=== PATIENT | male | born 1940 | race Caucasian/White ===

== ENCOUNTER 2017-07-05 18:28 | Inpatient (IN) | payer MEDICARE, MEDICAID ==
[~2017-07-05] VITALS: Ht 180.3 cm; Wt 149.0 kg
[~2017-07-05 18:28] MED LIST: ACET325T9 PO; ASPI-630 PO; CALC200T3 PO; CHOL10003 PO; CYAN500T PO; GABA-586 PO; INSU100I13 SQ; LISI10TA2 PO; MAG355OR12 PO; MAGN2400 PO; MELO15TA23 PO; MEMA10TA PO; METF500T4 PO; QUET25TA5 PO; QUET50TA PO; RIVA1PAT23 TD; THIA100T22 PO
[2017-07-05 19:29] LABS: BILIRUBIN,URINE NEG (NEG); CLARITY,URINE CLEAR; COLOR,URINE YELLOW; GLUCOSE,URINE NEG (NEG)
[2017-07-05 19:30] LABS: BACTERIA,URINE 0 /HPF (0-FEW); HYALINE CASTS, URINE MOD /HPF; NITRITE,URINE NEG (NEG); RBC,URINE OCC /HPF (0-2); SQUAMOUS EPITHELIAL CELL,UR FEW /LPF; UROBILINOGEN,URINE 0.2 mg/dL (0.2 mg/dL)
[2017-07-05 19:31] LABS: BASO # 0.1 x10^3/uL (0.0-0.2); BASO % 1 % (0-3); EOS # 0.3 x10^3/uL (0.0-0.7); EOS % 3 % (0-3); HEMATOCRIT 37.4 % (39.0-53.0); HEMOGLOBIN 12.5 g/dL (13.0-17.5); LYMPH # 3.9 x10^3/uL (1.0-4.8); LYMPH % 39 % (24-48); MEAN CORPUSCULAR HEMOGLOBIN 30 pg (25-35); MEAN CORPUSCULAR HGB CONC 34 g/dL (31-37); MEAN CORPUSCULAR VOLUME 90 fL (79-100); MONO # 0.9 x10^3/uL (0.0-1.1); MONO % 9 % (0-9); NEUT % 49 % (31-73); PLATELET COUNT 170 x10^3/uL (140-400); RED BLOOD COUNT 4.14 x10^6/uL (4.30-5.70); RED CELL DISTRIBUTION WIDTH 15.3 % (11.5-14.5)
[2017-07-05 19:42] LABS: ALBUMIN 3.1 g/dL (3.4-5.0); ALBUMIN/GLOBULIN RATIO 0.8 (1.0-1.7); CALCIUM 9.4 mg/dL (8.5-10.1); CREATININE 1.2 mg/dL (0.7-1.3); GFR 58.7; MAGNESIUM 1.7 mg/dL (1.8-2.4); POTASSIUM 4.4 mmol/L (3.5-5.1); TOTAL BILIRUBIN 0.1 mg/dL (0.2-1.0); TOTAL PROTEIN 7.2 g/dL (6.4-8.2)
--- NOTE | 2017-07-05 19:53 | EKG ---
[address] [address] Test Date: 2017-07-05 Test Time: 19:04:04 Pat Name: ZACH ROMO Department: Room: Gender: M Inside [employer] Agent: ACE : [id number] Requested By: RAY VALENTE Order Number: [id number] Reading MD: Benjamin Parish Measurements Intervals [place] Rate: 82 P: 51 [place]: 190 QRS: 49 QRSD: 122 T: 79 QT: 380 QTc: 447 Interpretive Statements SINUS RHYTHM INCOMPLETE RIGHT BUNDLE BRANCH BLOCK QRS(T) CONTOUR ABNORMALITY CONSISTENT WITH INFERIOR INFARCT AGE UNDETERMINED T ABNORMALITY IN ANTEROSEPTAL LEADS ABNORMAL ECG RI6.01 No previous ECG available for comparison Electronically Signed On 07-23-2017 15:47:24 CDT by Benjamin Parish
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
[2017-07-05] MEDS ORDERED: METHYL SALICYLATE/MENTHOL TOPICAL OINTMENT 29GM TUBE. TP PRN (22:45)
[2017-07-05] MEDS ORDERED: MAG HYDROX/AL HYDROX/SIMETH 30 ML ORAL.SUSP PO PRN (22:45)
[2017-07-05 23:47] LABS: VAL ACID 16 mcg/mL (50-100)
[2017-07-05] MEDS ORDERED: METH29OI TP (23:50)
[2017-07-05] MEDS ORDERED: INSU100I17 SQ (23:50)
[2017-07-05] MEDS ORDERED: MINE120C TP (23:50)
[2017-07-05] MEDS ORDERED: ESCITALOPRAM OXA5 MG PO (23:50)
[2017-07-05] MEDS ORDERED: CLOP75TA PO (23:50)
[2017-07-05] MEDS ORDERED: FINA5TAB4 PO (23:50)
[2017-07-05] MEDS ORDERED: UMEC1DIS IH (23:50)
[2017-07-05] MEDS ORDERED: ACET500T68 PO (23:50)
[2017-07-05] MEDS ORDERED: TAMS0.4C2 PO (23:50)
[2017-07-05] MEDS ORDERED: IPRA3AMP NEB ×2 (23:50)
[2017-07-05] MEDS ORDERED: LORA10TA3 PO (23:50)
[2017-07-05] MEDS ORDERED: ATOR20TA58 PO (23:50)
[2017-07-05] MEDS ORDERED: GUAI600T47 PO (23:50)
[2017-07-05] MEDS ORDERED: FURO20TA3 PO (23:50)
[2017-07-05] MEDS ORDERED: METF10002 PO (23:50)
[2017-07-05] MEDS ORDERED: DIVA125C PO ×2 (23:50)
[2017-07-05] MEDS ORDERED: MEMA10TA PO (23:50)
[2017-07-05] MEDS ORDERED: HYDR-2758 PO (23:50)
[2017-07-05] MEDS ORDERED: RIVA1PAT23 TD (23:50)
[2017-07-05] MEDS ORDERED: LISI-338 PO (23:50)
[2017-07-05] MEDS ORDERED: CARV3.122 PO (23:50)
[2017-07-05] MEDS ORDERED: POTA10TA10 PO (23:50)
[2017-07-06] MEDS ORDERED: MINERAL OIL/PETROLATUM TOPICAL CREAM 113GM JAR. TP PRN (02:00)
[2017-07-06] MEDS: IPRATRPIUM/ALBUTEROL 0.5/2.5MG 3 ML NEBU. NEB SCH ×5 (06:05→21:41)
[2017-07-06 06:13] VITALS: BP 142/64
[2017-07-06] MEDS ORDERED: NON FORMULARY ITEM (Umeclidinium Brm/Vilanterol Tr (Anoro Ellipta 62.5-25 Mcg Inh) 1 PUFF) IH SCH (09:00)
[2017-07-06] MEDS ORDERED: PNEUMOC CONJ VACC 23-VALENT 0.5 ML VIAL. VAX IM ONE (09:00)
[2017-07-06] MEDS: INSULIN ASPART 300 UNITS/3 ML INSULN.PEN SQ SCH ×3 (10:23→17:21)
[2017-07-06] MEDS: RIVASTIGMINE 9.5MG PATCH. TD SCH (10:24)
[2017-07-06] MEDS: NICOTINE 21MG PATCH. TD SCH (10:24)
[2017-07-06] MEDS: METHYL SALICYLATE/MENTHOL TOPICAL OINTMENT 29GM TUBE. TP SCH ×3 (10:25→21:21)
[2017-07-06] MEDS: metFORMIN 500 MG TABLET PO SCH ×2 (10:25→16:11)
[2017-07-06] MEDS: ASPIRIN 81 MG TAB.CHEW PO SCH (10:25)
[2017-07-06] MEDS: NYSTATIN TOPICAL POWDER 15GM BOTTLE. TP SCH ×2 (10:25→21:21)
[2017-07-06] MEDS: CITALOPRAM 10 MG TABLET. PO SCH (10:25)
[2017-07-06] MEDS: LISINOPRIL 5 MG TABLET. PO SCH (10:25)
[2017-07-06] MEDS: FINASTERIDE 5 MG TABLET PO SCH (10:25)
[2017-07-06] MEDS: GABAPENTIN 300 MG CAPSULE. PO SCH ×4 (10:26→21:21)
[2017-07-06] MEDS: CARVEDILOL 3.125 MG TABLET PO SCH ×2 (10:26→16:08)
[2017-07-06] MEDS: CLOPIDOGREL BISULFATE 75 MG TABLET PO SCH (10:26)
[2017-07-06] MEDS: ACETAMINOPHEN 500 MG TABLET PO SCH ×2 (10:26→21:21)
[2017-07-06] MEDS: FUROSEMIDE 20 MG TABLET PO SCH (10:26)
[2017-07-06] MEDS: MEMANTINE 10 MG TABLET. PO SCH ×2 (10:26→21:21)
[2017-07-06] MEDS: CETIRIZINE HCL 10 MG TABLET PO SCH (10:27)
[2017-07-06] MEDS: DIVALPROEX 125 MG CAP.SPRINK PO SCH ×2 (10:27→16:06)
[2017-07-06] MEDS: POTASSIUM CHLORIDE 10 MEQ TABLET.ER. PO SCH (10:27)
[2017-07-06] MEDS: ALBUTEROL SULFATE 2.5 MG/3 ML NEBU. NEB PRN (14:38)
[2017-07-06 15:09] LABS: THYROID STIM HORMONE (TSH) 2.164 uIU/mL (0.358-3.740)
[2017-07-06 16:26] VITALS: BP 166/79
--- NOTE | 2017-07-06 18:53 | PDOC ---
Exam Note: Rober Note: Please also refer to the separate dictated note~for this date of service dictated separately.~Patient seen individually. Discussed the patient with Nursing staff reviewed the chart.~Reviewed interim history and current functioning. Reviewed vital signs,~Labs/ Radiology~and current medications noted below. Continue current treatment with the changes noted in the dictated addendum note Assessment: Vital Signs: Vital Signs Date Time Temp Pulse Resp B/P (MAP) Pulse Ox O2 Delivery O2 Flow Rate FiO2 07/06/17 18:01 95 Room Air 07/06/17 16:26 97.3 86 20 166/79 (108) Labs: Laboratory Tests Test 07/05/17 19:00 07/05/17 19:15 07/06/17 08:03 07/06/17 11:40 Urine Collection Type Unknown Urine Color Yellow Urine Clarity Clear Urine pH 5.5 Urine Specific [place] 1.015 Urine Protein Neg (NEG-TRACE) Urine Glucose (UA) Neg mg/dL (NEG) Urine Ketones (Stick) Neg mg/dL (NEG) Urine Blood Neg (NEG) Urine Nitrite Neg (NEG) Urine Bilirubin Neg (NEG) Urine Urobilinogen Dipstick 0.2 mg/dL (0.2 mg/dL) Urine Leukocyte Esterase Neg (NEG) Urine RBC Occ /HPF (0-2) Urine WBC 1-4 /HPF (0-4) Urine Squamous Epithelial Cells Few /LPF Urine Bacteria 0 /HPF (0-FEW) Urine Hyaline Casts Mod /HPF Urine Mucus Mod /LPF White Blood Count 10.0 x10^3/uL (4.0-11.0) Red Blood Count 4.14 x10^6/uL (4.30-5.70) L Hemoglobin 12.5 g/dL (13.0-17.5) L Hematocrit 37.4 % (39.0-53.0) L Mean Corpuscular Volume 90 fL (79-100) Mean Corpuscular Hemoglobin 30 pg (25-35) Mean Corpuscular Hemoglobin Concent 34 g/dL (31-37) Red Cell Distribution Width 15.3 % (11.5-14.5) H Platelet Count 170 x10^3/uL (140-400) Neutrophils (%) (Auto) 49 % (31-73) Lymphocytes (%) (Auto) 39 % (24-48) Monocytes (%) (Auto) 9 % (0-9) Eosinophils (%) (Auto) 3 % (0-3) Basophils (%) (Auto) 1 % (0-3) Neutrophils # (Auto) 5.0 x10^3uL (1.8-7.7) Lymphocytes # (Auto) 3.9 x10^3/uL (1.0-4.8) Monocytes # (Auto) 0.9 x10^3/uL (0.0-1.1) Eosinophils # (Auto) 0.3 x10^3/uL (0.0-0.7) Basophils # (Auto) 0.1 x10^3/uL (0.0-0.2) Sodium Level 141 mmol/L (136-145) Potassium Level 4.4 mmol/L (3.5-5.1) Chloride Level 104 mmol/L (98-107) Carbon Dioxide Level 28 mmol/L (21-32) Anion Gap 9 (6-14) Blood Urea Nitrogen 26 mg/dL (8-26) Creatinine 1.2 mg/dL (0.7-1.3) Estimated GFR (Cockcroft-Gault) 58.7 BUN/Creatinine Ratio 22 (6-20) H Glucose Level 142 mg/dL (70-99) H Calcium Level 9.4 mg/dL (8.5-10.1) Magnesium Level 1.7 mg/dL (1.8-2.4) L Iron Level 54 ug/dL (65-175) L Total Iron Binding Capacity 277 ug/dL (250-450) Iron Saturation 19 % (15-34) Total Bilirubin 0.1 mg/dL (0.2-1.0) L Aspartate Amino Transferase (AST) 19 U/L (15-37) Alanine Aminotransferase (ALT) 31 U/L (16-63) Alkaline Phosphatase 90 U/L (46-116) Total Protein 7.2 g/dL (6.4-8.2) Albumin 3.1 g/dL (3.4-5.0) L Albumin/Globulin Ratio 0.8 (1.0-1.7) L Triglycerides Level 228 mg/dL (0-150) H Cholesterol Level 131 mg/dL (0-200) LDL Cholesterol, Calculated 58 mg/dL (0-100) VLDL Cholesterol, Calculated 45 mg/dL (0-40) H Non-HDL Cholesterol Calculated 103 mg/dL (0-129) HDL Cholesterol 28 mg/dL (40-60) L Cholesterol/HDL Ratio 4.0 Thyroid Stimulating Hormone (TSH) 2.164 uIU/mL (0.358-3.740) Valproic Acid Level 16 mcg/mL (50-100) L Valproic Acid Last Dose Date 07/04/2017 Valproic Acid Last Dose Time 2100 Glucose (Fingerstick) 150 mg/dL (70-99) H 186 mg/dL (70-99) H Test 07/06/17 17:04 Glucose (Fingerstick) 151 mg/dL (70-99) H Current Medications: Meds: Current Medications Acetaminophen (Tylenol) 650 mg PRN Q6HRS PRN PO PAIN / TEMP; Start 07/05/17 at 22:45 Multi-Ingredient Ointment (Analgesic [place]) 1 rosey PRN QID PRN TP MUSCLE PAIN; Start 07/05/17 at 22:45 Al Hydroxide/Mg Hydroxide (Mylanta Plus Xs) 15 ml PRN AFTMEALHC PRN PO DYSPEPSIA; Start 07/05/17 at 22:45 Magnesium Hydroxide (Milk Of Magnesia) 2,400 mg PRN QHS PRN PO CONSTIPATION; Start 07/05/17 at 22:45 Nicotine (Nicoderm Cq 21mg) 1 patch DAILY TD Last administered on 07/06/17at 10: 24; Start 07/06/17 at 09:00 Divalproex Sodium (Depakote Sprinkles) 250 mg BID94 PO Last administered on at 16:06; Start 07/06/17 at 09:00 Divalproex Sodium (Depakote Sprinkles) 500 mg HS PO ; Start 07/06/17 at 21:00 Memantine (Namenda) 10 mg BID PO Last administered on 07/06/17 10:26; Start at 09:00 Rivastigmine (Exelon) 1 patch DAILY TD Last administered on 07/06/17at 10:24; Start 07/06/17 at 09:00 Acetaminophen (Tylenol) 500 mg BID PO Last administered on 07/06/17at 10:26; Start 07/06/17 at 09:00 Aspirin (Children'S Aspirin) 81 mg DAILY PO Last administered on 07/06/17 10: 25; Start 07/06/17 at 09:00 Atorvastatin Calcium (Lipitor) 20 mg QHS PO ; Start 07/06/17 at 21:00 Carvedilol (Coreg) 3.125 mg BIDWMEALS PO Last administered on 07/06/17 16:08; Start 07/06/17 at 08:00 Clopidogrel Bisulfate (Plavix) 75 mg DAILY PO Last administered on 07/06/17 10 :26; Start 07/06/17 at 09:00 Finasteride (Proscar) 5 mg DAILY PO Last administered on 07/06/17 10:25; Start 07/06/17 at 09:00 Furosemide (Lasix) 20 mg DAILY PO Last administered on 07/06/17 10:26; Start 07/06/17 at 09:00 Gabapentin (Neurontin) 300 mg QID PO Last administered on 07/06/17 16:11; Start 07/06/17 at 09:00 Guaifenesin (Mucinex Er) 600 mg BID PO Last administered on 07/06/17 10:26; Start 07/06/17 at 09:00 Acetaminophen/ Hydrocodone Bitart (Lortab 5/325) 1 tab PRN Q6HRS PRN PO PAIN; Start 07/06/17 at 02:00 Insulin Aspart (NovoLOG) 18 units TIDBFRMEAL SQ Last administered on 07/06/17 17:21; Start 07/06/17 at 07:30 Albuterol Sulfate (Ventolin) 2.5 mg PRN Q4HRS PRN NEB SHORTNESS OF BREATH Last administered on 07/06/17 14:38; Start 07/06/17 at 02:15 Albuterol/ Ipratropium (Duoneb) 3 ml Q4HRS NEB Last administered on 07/06/17 18:00; Start 07/06/17 at 04:00 Lisinopril (Prinivil) 5 mg DAILY PO Last administered on 07/06/17 10:25; Start 07/06/17 at 09:00 Multi-Ingredient Ointment (Analgesic [place]) 1 rosey TID TP Last administered on 13:04; Start 07/06/17 at 09:00 Multi-Ingred Cream/Lotion/Oil/ Oint (Hydrocerin) 1 rosey PRN TID PRN TP DRY SKIN / SCALING; Start 07/06/17 at 02:00 Tamsulosin HCl (Flomax) 0.4 mg HS PO ; Start 07/06/17 at 21:00 Insulin Detemir (Levemir) 70 units QHS SQ ; Start 07/06/17 at 21:00 Cetirizine HCl (ZyrTEC) 10 mg DAILY PO Last administered on 07/06/17at 10:27; Start 07/06/17 at 09:00 Metformin HCl (Glucophage) 1,000 mg BIDWMEALS PO Last administered on at 16:11; Start 07/06/17 at 08:00 Potassium Chloride (Klor-Con) 10 meq DAILYWBKFT PO Last administered on at 10:27; Start 07/06/17 at 08:00 Non-Formulary Medication (Umeclidinium Brm/Vilanterol Tr (Anoro Ellipta 62.5-25 Mcg Inh)) 1 puff DAILY IH ; Start 07/06/17 at 09:00; Status UNV Citalopram Hydrobromide (CeleXA) 10 mg DAILY PO Last administered on 07/06/17at 10:25; Start 07/06/17 at 09:00 Pneumococcal Polyvalent Vaccine (Pneumovax 23) 0.5 ml ONCE ONCE VAX IM Last administered on 07/06/17at 10:40; Start 07/06/17 at 09:00; Stop 07/06/17 at 09:01 ; Status DC Nystatin (Nystop) 1 rosey BID TP Last administered on 07/06/17at 10:25; Start at 09:00 Active Scripts Active Reported Depakote Sprinkle (Divalproex Sodium) 125 Mg Cap.sprink 500 Mg PO HS Duoneb 0.5-3(2.5) Mg/3 Ml (Albuterol/Ipratropium) 3 Ml Ampul.neb 3 Ml NEB PRN Q4HRS PRN Eucerin Creme (Mineral Oil/Petrolatum,White) 120 Gm Cream..g. 1 Rosey TP PRN TID PRN Tamsulosin Hcl 0.4 Mg Cap.er.24h 0.4 Mg PO HS Potassium Chloride 10 Meq Tablet.er 10 Meq PO DAILY Novolog Flexpen (Insulin Aspart) 100 Unit/1 Ml Insuln.pen 18 Units SQ TIDBFRMEAL Analgesic [place] (Methyl Salicylate/Menthol) 28 Gm Oint...g. 1 Rosey TP TID Mucinex (Guaifenesin) 600 Mg Tablet.er 600 Mg PO BID Metformin Hcl 1,000 Mg Tablet 1,000 Mg PO BIDWMEALS Namenda (Memantine Hcl) 10 Mg Tablet 10 Mg PO BID Loratadine 10 Mg Tablet 10 Mg PO DAILY Lisinopril 5 Mg Tablet 5 Mg PO DAILY Duoneb 0.5-3(2.5) Mg/3 Ml (Albuterol/Ipratropium) 3 Ml Ampul.neb 3 Ml NEB Q4HRS Hydrocodone-Apap 5-325 (Hydrocodone Bit/Acetaminophen) 1 Each Tablet 1 Tab PO Q6HRS PRN Furosemide 20 Mg Tablet 20 Mg PO DAILY Finasteride 5 Mg Tablet 5 Mg PO DAILY EXELON 9.5mg/24hr (Rivastigmine) 1 Each Patch.td24 1 Patch TD DAILY Escitalopram Oxalate 5 Mg Tablet 5 Mg PO DAILY Depakote Sprinkle (Divalproex Sodium) 125 Mg Cap.sprink 250 Mg PO BID Clopidogrel (Clopidogrel Bisulfate) 75 Mg Tablet 75 Mg PO DAILY Carvedilol 3.125 Mg Tablet 3.125 Mg PO BIDWMEALS Atorvastatin Calcium 20 Mg Tablet 20 Mg PO QHS Anoro Ellipta 62.5-25 Mcg Inh (Umeclidinium Brm/Vilanterol Tr) 1 Each Disk.w.dev 1 Puff IH DAILY Acetaminophen 500 Mg Tablet 500 Mg PO BID Gabapentin 300 Mg Capsule 300 Mg PO QID Aspirin 81 Mg Tab.chew 81 Mg PO DAILY Lantus Solostar (Insulin Glargine,Hum.rec.anlog) 100 Unit/1 Ml Insuln.pen 70 Unit SQ QHS I have reviewed the current psychotropics carefully including drug interactions. Risk benefit ratio favors no change other than as noted in my dictated progress note. 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
--- NOTE | 2017-07-06 20:28 | PDOC ---
Exam Note: Rober Note: Please also refer to the separate dictated note~for this date of service dictated separately.~Patient seen individually. Discussed the patient with Nursing staff reviewed the chart.~Reviewed interim history and current functioning. Reviewed vital signs,~Labs/ Radiology~and current medications noted below. Continue current treatment with the changes noted in the dictated addendum note Assessment: Vital Signs: Vital Signs Date Time Temp Pulse Resp B/P (MAP) Pulse Ox O2 Delivery O2 Flow Rate FiO2 07/06/17 18:01 95 Room Air 07/06/17 16:26 97.3 86 20 166/79 (108) Labs: Laboratory Tests Test 07/06/17 08:03 07/06/17 11:40 07/06/17 17:04 07/06/17 19:45 Glucose (Fingerstick) 150 mg/dL (70-99) H 186 mg/dL (70-99) H 151 mg/dL (70-99) H 120 mg/dL (70-99) H Current Medications: Meds: Current Medications Acetaminophen (Tylenol) 650 mg PRN Q6HRS PRN PO PAIN / TEMP; Start 07/05/17 at 22:45 Multi-Ingredient Ointment (Analgesic [place]) 1 rosey PRN QID PRN TP MUSCLE PAIN; Start 07/05/17 at 22:45 Al Hydroxide/Mg Hydroxide (Mylanta Plus Xs) 15 ml PRN AFTMEALHC PRN PO DYSPEPSIA; Start 07/05/17 at 22:45 Magnesium Hydroxide (Milk Of Magnesia) 2,400 mg PRN QHS PRN PO CONSTIPATION; Start 07/05/17 at 22:45 Nicotine (Nicoderm Cq 21mg) 1 patch DAILY TD Last administered on 07/06/17at 10: 24; Start 07/06/17 at 09:00 Divalproex Sodium (Depakote Sprinkles) 250 mg BID94 PO Last administered on at 16:06; Start 07/06/17 at 09:00 Divalproex Sodium (Depakote Sprinkles) 500 mg HS PO ; Start 07/06/17 at 21:00 Memantine (Namenda) 10 mg BID PO Last administered on 07/06/17at 10:26; Start at 09:00 Rivastigmine (Exelon) 1 patch DAILY TD Last administered on 07/06/17 10:24; Start 07/06/17 at 09:00 Acetaminophen (Tylenol) 500 mg BID PO Last administered on 07/06/17 10:26; Start 07/06/17 at 09:00 Aspirin (Children'S Aspirin) 81 mg DAILY PO Last administered on 07/06/17 10: 25; Start 07/06/17 at 09:00 Atorvastatin Calcium (Lipitor) 20 mg QHS PO ; Start 07/06/17 at 21:00 Carvedilol (Coreg) 3.125 mg BIDWMEALS PO Last administered on 07/06/17 16:08; Start 07/06/17 at 08:00 Clopidogrel Bisulfate (Plavix) 75 mg DAILY PO Last administered on 07/06/17 10 :26; Start 07/06/17 at 09:00 Finasteride (Proscar) 5 mg DAILY PO Last administered on 07/06/17 10:25; Start 07/06/17 at 09:00 Furosemide (Lasix) 20 mg DAILY PO Last administered on 07/06/17 10:26; Start 07/06/17 at 09:00 Gabapentin (Neurontin) 300 mg QID PO Last administered on 07/06/17 16:11; Start 07/06/17 at 09:00 Guaifenesin (Mucinex Er) 600 mg BID PO Last administered on 07/06/17 10:26; Start 07/06/17 at 09:00 Acetaminophen/ Hydrocodone Bitart (Lortab 5/325) 1 tab PRN Q6HRS PRN PO PAIN; Start 07/06/17 at 02:00 Insulin Aspart (NovoLOG) 18 units TIDBFRMEAL SQ Last administered on 07/06/17 17:21; Start 07/06/17 at 07:30 Albuterol Sulfate (Ventolin) 2.5 mg PRN Q4HRS PRN NEB SHORTNESS OF BREATH Last administered on 07/06/17 14:38; Start 07/06/17 at 02:15 Albuterol/ Ipratropium (Duoneb) 3 ml Q4HRS NEB Last administered on 07/06/17 18:00; Start 07/06/17 at 04:00 Lisinopril (Prinivil) 5 mg DAILY PO Last administered on 07/06/17at 10:25; Start 07/06/17 at 09:00 Multi-Ingredient Ointment (Analgesic [place]) 1 rosey TID TP Last administered on at 13:04; Start 07/06/17 at 09:00 Multi-Ingred Cream/Lotion/Oil/ Oint (Hydrocerin) 1 rosey PRN TID PRN TP DRY SKIN / SCALING; Start 07/06/17 at 02:00 Tamsulosin HCl (Flomax) 0.4 mg HS PO ; Start 07/06/17 at 21:00 Insulin Detemir (Levemir) 70 units QHS SQ ; Start 07/06/17 at 21:00 Cetirizine HCl (ZyrTEC) 10 mg DAILY PO Last administered on 07/06/17 10:27; Start 07/06/17 at 09:00 Metformin HCl (Glucophage) 1,000 mg BIDWMEALS PO Last administered on 16:11; Start 07/06/17 at 08:00 Potassium Chloride (Klor-Con) 10 meq DAILYWBKFT PO Last administered on at 10:27; Start 07/06/17 at 08:00 Non-Formulary Medication (Umeclidinium Brm/Vilanterol Tr (Anoro Ellipta 62.5-25 Mcg Inh)) 1 puff DAILY IH ; Start 07/06/17 at 09:00; Status UNV Citalopram Hydrobromide (CeleXA) 10 mg DAILY PO Last administered on 07/06/17 10:25; Start 07/06/17 at 09:00 Pneumococcal Polyvalent Vaccine (Pneumovax 23) 0.5 ml ONCE ONCE VAX IM Last administered on 07/06/17at 10:40; Start 07/06/17 at 09:00; Stop 07/06/17 at 09:01 ; Status DC Nystatin (Nystop) 1 rosey BID TP Last administered on 07/06/17at 10:25; Start at 09:00 Active Scripts Active Reported Depakote Sprinkle (Divalproex Sodium) 125 Mg Cap.sprink 500 Mg PO HS Duoneb 0.5-3(2.5) Mg/3 Ml (Albuterol/Ipratropium) 3 Ml Ampul.neb 3 Ml NEB PRN Q4HRS PRN Eucerin Creme (Mineral Oil/Petrolatum,White) 120 Gm Cream..g. 1 Rosey TP PRN TID PRN Tamsulosin Hcl 0.4 Mg Cap.er.24h 0.4 Mg PO HS Potassium Chloride 10 Meq Tablet.er 10 Meq PO DAILY Novolog Flexpen (Insulin Aspart) 100 Unit/1 Ml Insuln.pen 18 Units SQ TIDBFRMEAL Analgesic [place] (Methyl Salicylate/Menthol) 28 Gm Oint...g. 1 Rosey TP TID Mucinex (Guaifenesin) 600 Mg Tablet.er 600 Mg PO BID Metformin Hcl 1,000 Mg Tablet 1,000 Mg PO BIDWMEALS Namenda (Memantine Hcl) 10 Mg Tablet 10 Mg PO BID Loratadine 10 Mg Tablet 10 Mg PO DAILY Lisinopril 5 Mg Tablet 5 Mg PO DAILY Duoneb 0.5-3(2.5) Mg/3 Ml (Albuterol/Ipratropium) 3 Ml Ampul.neb 3 Ml NEB Q4HRS Hydrocodone-Apap 5-325 (Hydrocodone Bit/Acetaminophen) 1 Each Tablet 1 Tab PO Q6HRS PRN Furosemide 20 Mg Tablet 20 Mg PO DAILY Finasteride 5 Mg Tablet 5 Mg PO DAILY EXELON 9.5mg/24hr (Rivastigmine) 1 Each Patch.td24 1 Patch TD DAILY Escitalopram Oxalate 5 Mg Tablet 5 Mg PO DAILY Depakote Sprinkle (Divalproex Sodium) 125 Mg Cap.sprink 250 Mg PO BID Clopidogrel (Clopidogrel Bisulfate) 75 Mg Tablet 75 Mg PO DAILY Carvedilol 3.125 Mg Tablet 3.125 Mg PO BIDWMEALS Atorvastatin Calcium 20 Mg Tablet 20 Mg PO QHS Anoro Ellipta 62.5-25 Mcg Inh (Umeclidinium Brm/Vilanterol Tr) 1 Each Disk.w.dev 1 Puff IH DAILY Acetaminophen 500 Mg Tablet 500 Mg PO BID Gabapentin 300 Mg Capsule 300 Mg PO QID Aspirin 81 Mg Tab.chew 81 Mg PO DAILY Lantus Solostar (Insulin Glargine,Hum.rec.anlog) 100 Unit/1 Ml Insuln.pen 70 Unit SQ QHS I have reviewed the current psychotropics carefully including drug interactions. Risk benefit ratio favors no change other than as noted in my dictated progress note. Diagnosis: Problems: (1) Paranoid behavior (2) Alcohol-induced persisting dementia (3) Anxiety disorder (4) Impulse control disorder (5) Alcoholic psychosis (6) Dementia, vascular, with delusions SAMMY QUICK MD Jul 06, 2017 20:28
[2017-07-06] MEDS ORDERED: DIVALPROEX 125 MG CAP.SPRINK PO SCH (21:00)
[2017-07-06 21:25] LABS: THYROXINE 7.1 ug/dL (4.5-12.0)
[2017-07-06] MEDS: TAMSULOSIN 0.4 MG CAP.ER.24H. PO SCH (21:25)
[2017-07-06] MEDS: ATORVASTATIN CALCIUM 20 MG TABLET PO SCH (21:25)
[2017-07-06] MEDS: INSULIN DETEMIR 300 UNITS/3 ML INSULN.PEN. SQ SCH (21:26)
[2017-07-07] MEDS: IPRATRPIUM/ALBUTEROL 0.5/2.5MG 3 ML NEBU. NEB SCH ×6 (01:01→19:54)
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
[2017-07-07 03:18] LABS: HEMOGLOBIN A1C 5.7 % (4.8-5.6)
[2017-07-07 06:03] VITALS: BP 168/67
[2017-07-07] MEDS: ASPIRIN 81 MG TAB.CHEW PO SCH (08:48)
[2017-07-07] MEDS: NYSTATIN TOPICAL POWDER 15GM BOTTLE. TP SCH ×2 (08:48→19:58)
[2017-07-07] MEDS: DIVALPROEX 125 MG CAP.SPRINK PO SCH ×3 (08:48→19:56)
[2017-07-07] MEDS: FINASTERIDE 5 MG TABLET PO SCH (08:49)
[2017-07-07] MEDS: LISINOPRIL 5 MG TABLET. PO SCH (08:49)
[2017-07-07] MEDS: MEMANTINE 10 MG TABLET. PO SCH ×2 (08:49→19:56)
[2017-07-07] MEDS: ACETAMINOPHEN 500 MG TABLET PO SCH ×2 (08:49→19:57)
[2017-07-07] MEDS: CARVEDILOL 3.125 MG TABLET PO SCH ×2 (08:49→16:36)
[2017-07-07] MEDS: metFORMIN 500 MG TABLET PO SCH ×2 (08:50→16:36)
[2017-07-07] MEDS: GABAPENTIN 300 MG CAPSULE. PO SCH ×4 (08:50→19:57)
[2017-07-07] MEDS: POTASSIUM CHLORIDE 10 MEQ TABLET.ER. PO SCH (08:50)
[2017-07-07] MEDS: CITALOPRAM 10 MG TABLET. PO SCH (08:50)
[2017-07-07] MEDS: CLOPIDOGREL BISULFATE 75 MG TABLET PO SCH (08:50)
[2017-07-07] MEDS: CETIRIZINE HCL 10 MG TABLET PO SCH (08:50)
[2017-07-07] MEDS: FUROSEMIDE 20 MG TABLET PO SCH (08:50)
[2017-07-07] MEDS: RIVASTIGMINE 9.5MG PATCH. TD SCH (08:51)
[2017-07-07] MEDS: NICOTINE 21MG PATCH. TD SCH (08:51)
[2017-07-07] MEDS: METHYL SALICYLATE/MENTHOL TOPICAL OINTMENT 29GM TUBE. TP SCH ×3 (08:52→19:58)
[2017-07-07] MEDS: INSULIN ASPART 300 UNITS/3 ML INSULN.PEN SQ SCH ×3 (08:56→18:41)
[2017-07-07] MEDS: HYDROcodone/APAP 5/325MG 1 TAB TABLET PO PRN ×2 (09:07→16:44)
[2017-07-07 16:00] VITALS: BP 167/72
[2017-07-07] MEDS: TAMSULOSIN 0.4 MG CAP.ER.24H. PO SCH (19:56)
[2017-07-07] MEDS: ATORVASTATIN CALCIUM 20 MG TABLET PO SCH (19:56)
[2017-07-07] MEDS: traZODone 100 MG TABLET. PO SCH (19:58)
[2017-07-07] MEDS: INSULIN DETEMIR 300 UNITS/3 ML INSULN.PEN. SQ SCH (20:00)
--- NOTE | 2017-07-07 20:35 | PDOC ---
Exam Note: Rober Note: Please also refer to the separate dictated note~for this date of service dictated separately.~Patient seen individually. Discussed the patient with Nursing staff reviewed the chart.~Reviewed interim history and current functioning. Reviewed vital signs,~Labs/ Radiology~and current medications noted below. Continue current treatment with the changes noted in the dictated addendum note Assessment: Vital Signs: Vital Signs Date Time Temp Pulse Resp B/P (MAP) Pulse Ox O2 Delivery O2 Flow Rate FiO2 07/07/17 19:55 93 Room Air 07/07/17 16:36 83 167/72 07/07/17 16:00 97.4 20 I&O Intake and Output 07/07/17 07:00 Intake Total 1440 ml Balance 1440 ml Intake Oral 1440 ml # Bowel Movements 2 Labs: Laboratory Tests Test 07/07/17 07:33 07/07/17 11:40 07/07/17 17:00 07/07/17 19:37 Glucose (Fingerstick) 156 mg/dL (70-99) H 180 mg/dL (70-99) H 147 mg/dL (70-99) H 144 mg/dL (70-99) H Current Medications: Meds: Current Medications Acetaminophen (Tylenol) 650 mg PRN Q6HRS PRN PO PAIN / TEMP; Start 07/05/17 at 22:45 Multi-Ingredient Ointment (Analgesic Draper) 1 rosey PRN QID PRN TP MUSCLE PAIN; Start 07/05/17 at 22:45 Al Hydroxide/Mg Hydroxide (Mylanta Plus Xs) 15 ml PRN AFTMEALHC PRN PO DYSPEPSIA; Start 07/05/17 at 22:45 Magnesium Hydroxide (Milk Of Magnesia) 2,400 mg PRN QHS PRN PO CONSTIPATION; Start 07/05/17 at 22:45 Nicotine (Nicoderm Cq 21mg) 1 patch DAILY TD Last administered on 07/07/17at 08: 51; Start 07/06/17 at 09:00 Divalproex Sodium (Depakote Sprinkles) 250 mg BID94 PO Last administered on at 16:36; Start 07/06/17 at 09:00; Stop 07/07/17 at 18:23; Status DC Divalproex Sodium (Depakote Sprinkles) 500 mg HS PO Last administered on 21:25; Start 07/06/17 at 21:00; Stop 07/07/17 at 18:23; Status DC Memantine (Namenda) 10 mg BID PO Last administered on 07/07/17 19:56; Start at 09:00 Rivastigmine (Exelon) 1 patch DAILY TD Last administered on 07/07/17 08:51; Start 07/06/17 at 09:00 Acetaminophen (Tylenol) 500 mg BID PO Last administered on 07/07/17 19:57; Start 07/06/17 at 09:00 Aspirin (Children'S Aspirin) 81 mg DAILY PO Last administered on 07/07/17 08: 48; Start 07/06/17 at 09:00 Atorvastatin Calcium (Lipitor) 20 mg QHS PO Last administered on 07/07/17 19: 56; Start 07/06/17 at 21:00 Carvedilol (Coreg) 3.125 mg BIDWMEALS PO Last administered on 07/07/17 16:36; Start 07/06/17 at 08:00 Clopidogrel Bisulfate (Plavix) 75 mg DAILY PO Last administered on 07/07/17 08 :50; Start 07/06/17 at 09:00 Finasteride (Proscar) 5 mg DAILY PO Last administered on 07/07/17 08:49; Start 07/06/17 at 09:00 Furosemide (Lasix) 20 mg DAILY PO Last administered on 07/07/17 08:50; Start 07/06/17 at 09:00 Gabapentin (Neurontin) 300 mg QID PO Last administered on 07/07/17 19:57; Start 07/06/17 at 09:00 Guaifenesin (Mucinex Er) 600 mg BID PO Last administered on 07/07/17 19:57; Start 07/06/17 at 09:00 Acetaminophen/ Hydrocodone Bitart (Lortab 5/325) 1 tab PRN Q6HRS PRN PO PAIN Last administered on 07/07/17 16:44; Start 07/06/17 at 02:00 Insulin Aspart (NovoLOG) 18 units TIDBFRMEAL SQ Last administered on 07/07/17 18:41; Start 07/06/17 at 07:30 Albuterol Sulfate (Ventolin) 2.5 mg PRN Q4HRS PRN NEB SHORTNESS OF BREATH Last administered on 07/06/17 14:38; Start 07/06/17 at 02:15 Albuterol/ Ipratropium (Duoneb) 3 ml Q4HRS NEB Last administered on 07/07/17 19:54; Start 07/06/17 at 04:00 Lisinopril (Prinivil) 5 mg DAILY PO Last administered on 07/07/17at 08:49; Start 07/06/17 at 09:00 Multi-Ingredient Ointment (Analgesic Draper) 1 rosey TID TP Last administered on 19:58; Start 07/06/17 at 09:00 Multi-Ingred Cream/Lotion/Oil/ Oint (Hydrocerin) 1 rosey PRN TID PRN TP DRY SKIN / SCALING; Start 07/06/17 at 02:00 Tamsulosin HCl (Flomax) 0.4 mg HS PO Last administered on 07/07/17 19:56; Start 07/06/17 at 21:00 Insulin Detemir (Levemir) 70 units QHS SQ Last administered on 07/07/17at 20:00 ; Start 07/06/17 at 21:00 Cetirizine HCl (ZyrTEC) 10 mg DAILY PO Last administered on 07/07/17 08:50; Start 07/06/17 at 09:00 Metformin HCl (Glucophage) 1,000 mg BIDWMEALS PO Last administered on 16:36; Start 07/06/17 at 08:00 Potassium Chloride (Klor-Con) 10 meq DAILYWBKFT PO Last administered on at 08:50; Start 07/06/17 at 08:00 Non-Formulary Medication (Umeclidinium Brm/Vilanterol Tr (Anoro Ellipta 62.5-25 Mcg Inh)) 1 puff DAILY IH ; Start 07/06/17 at 09:00; Status UNV Citalopram Hydrobromide (CeleXA) 10 mg DAILY PO Last administered on 07/07/17at 08:50; Start 07/06/17 at 09:00 Pneumococcal Polyvalent Vaccine (Pneumovax 23) 0.5 ml ONCE ONCE VAX IM Last administered on 07/06/17at 10:40; Start 07/06/17 at 09:00; Stop 07/06/17 at 09:01 ; Status DC Nystatin (Nystop) 1 rosey BID TP Last administered on 07/07/17at 19:58; Start at 09:00 Divalproex Sodium (Depakote Sprinkles) 500 mg TID PO Last administered on at 19:56; Start 07/07/17 at 21:00 Trazodone HCl (Desyrel) 100 mg QHS PO Last administered on 07/07/17at 19:58; Start 07/07/17 at 21:00 Trazodone HCl (Desyrel) 100 mg PRN QHS PRN PO prn insomnia; Start 07/07/17 at 21:00 Active Scripts Active Reported Depakote Sprinkle (Divalproex Sodium) 125 Mg Cap.sprink 500 Mg PO HS Duoneb 0.5-3(2.5) Mg/3 Ml (Albuterol/Ipratropium) 3 Ml Ampul.neb 3 Ml NEB PRN Q4HRS PRN Eucerin Creme (Mineral Oil/Petrolatum,White) 120 Gm Cream..g. 1 Rosey TP PRN TID PRN Tamsulosin Hcl 0.4 Mg Cap.er.24h 0.4 Mg PO HS Potassium Chloride 10 Meq Tablet.er 10 Meq PO DAILY Novolog Flexpen (Insulin Aspart) 100 Unit/1 Ml Insuln.pen 18 Units SQ TIDBFRMEAL Analgesic Draper (Methyl Salicylate/Menthol) 28 Gm Oint...g. 1 Rosey TP TID Mucinex (Guaifenesin) 600 Mg Tablet.er 600 Mg PO BID Metformin Hcl 1,000 Mg Tablet 1,000 Mg PO BIDWMEALS Namenda (Memantine Hcl) 10 Mg Tablet 10 Mg PO BID Loratadine 10 Mg Tablet 10 Mg PO DAILY Lisinopril 5 Mg Tablet 5 Mg PO DAILY Duoneb 0.5-3(2.5) Mg/3 Ml (Albuterol/Ipratropium) 3 Ml Ampul.neb 3 Ml NEB Q4HRS Hydrocodone-Apap 5-325 (Hydrocodone Bit/Acetaminophen) 1 Each Tablet 1 Tab PO Q6HRS PRN Furosemide 20 Mg Tablet 20 Mg PO DAILY Finasteride 5 Mg Tablet 5 Mg PO DAILY EXELON 9.5mg/24hr (Rivastigmine) 1 Each Patch.td24 1 Patch TD DAILY Escitalopram Oxalate 5 Mg Tablet 5 Mg PO DAILY Depakote Sprinkle (Divalproex Sodium) 125 Mg Cap.sprink 250 Mg PO BID Clopidogrel (Clopidogrel Bisulfate) 75 Mg Tablet 75 Mg PO DAILY Carvedilol 3.125 Mg Tablet 3.125 Mg PO BIDWMEALS Atorvastatin Calcium 20 Mg Tablet 20 Mg PO QHS Anoro Ellipta 62.5-25 Mcg Inh (Umeclidinium Brm/Vilanterol Tr) 1 Each Disk.w.dev 1 Puff IH DAILY Acetaminophen 500 Mg Tablet 500 Mg PO BID Gabapentin 300 Mg Capsule 300 Mg PO QID Aspirin 81 Mg Tab.chew 81 Mg PO DAILY Lantus Solostar (Insulin Glargine,Hum.rec.anlog) 100 Unit/1 Ml Insuln.pen 70 Unit SQ QHS I have reviewed the current psychotropics carefully including drug interactions. Risk benefit ratio favors no change other than as noted in my dictated progress note. Diagnosis: Problems: (1) Paranoid behavior (2) Alcohol-induced persisting dementia (3) Anxiety disorder (4) Impulse control disorder (5) Alcoholic psychosis (6) Dementia, vascular, with delusions SAMMY QUICK MD Jul 07, 2017 20:34
[2017-07-07] MEDS ORDERED: traZODone 100 MG TABLET. PO PRN (21:00)
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
[2017-07-08] MEDS: HYDROcodone/APAP 5/325MG 1 TAB TABLET PO PRN ×2 (03:04→11:32)
[2017-07-08] MEDS: IPRATRPIUM/ALBUTEROL 0.5/2.5MG 3 ML NEBU. NEB SCH ×6 (04:00→20:26)
[2017-07-08 06:08] VITALS: BP 139/52
[2017-07-08] MEDS: CLOPIDOGREL BISULFATE 75 MG TABLET PO SCH (08:03)
[2017-07-08] MEDS: RIVASTIGMINE 9.5MG PATCH. TD SCH (08:03)
[2017-07-08] MEDS: NICOTINE 21MG PATCH. TD SCH (08:03)
[2017-07-08] MEDS: CETIRIZINE HCL 10 MG TABLET PO SCH (08:03)
[2017-07-08] MEDS: DIVALPROEX 125 MG CAP.SPRINK PO SCH ×3 (08:03→20:34)
[2017-07-08] MEDS: FUROSEMIDE 20 MG TABLET PO SCH (08:04)
[2017-07-08] MEDS: LISINOPRIL 5 MG TABLET. PO SCH (08:04)
[2017-07-08] MEDS: POTASSIUM CHLORIDE 10 MEQ TABLET.ER. PO SCH (08:04)
[2017-07-08] MEDS: CITALOPRAM 10 MG TABLET. PO SCH (08:04)
[2017-07-08] MEDS: ACETAMINOPHEN 500 MG TABLET PO SCH ×2 (08:04→20:35)
[2017-07-08] MEDS: FINASTERIDE 5 MG TABLET PO SCH (08:04)
[2017-07-08] MEDS: metFORMIN 500 MG TABLET PO SCH ×2 (08:05→17:31)
[2017-07-08] MEDS: MEMANTINE 10 MG TABLET. PO SCH ×2 (08:05→20:35)
[2017-07-08] MEDS: GABAPENTIN 300 MG CAPSULE. PO SCH ×4 (08:05→20:34)
[2017-07-08] MEDS: ASPIRIN 81 MG TAB.CHEW PO SCH (08:05)
[2017-07-08] MEDS: CARVEDILOL 3.125 MG TABLET PO SCH ×2 (08:05→17:00)
[2017-07-08] MEDS: INSULIN ASPART 300 UNITS/3 ML INSULN.PEN SQ SCH ×3 (08:06→17:33)
[2017-07-08] MEDS: METHYL SALICYLATE/MENTHOL TOPICAL OINTMENT 29GM TUBE. TP SCH ×3 (08:07→20:41)
[2017-07-08] MEDS: NYSTATIN TOPICAL POWDER 15GM BOTTLE. TP SCH ×2 (08:07→20:41)
[2017-07-08] MEDS: ALBUTEROL SULFATE 2.5 MG/3 ML NEBU. NEB PRN (11:27)
[2017-07-08 15:58] VITALS: BP 115/55
--- NOTE | 2017-07-08 16:15 | PDOC ---
Exam Note: Rober Note: Please also refer to the separate dictated note~for this date of service dictated separately.~Patient seen individually. Discussed the patient with Nursing staff reviewed the chart.~Reviewed interim history and current functioning. Reviewed vital signs,~Labs/ Radiology~and current medications noted below. Continue current treatment with the changes noted in the dictated addendum note Assessment: Vital Signs: Vital Signs Date Time Temp Pulse Resp B/P (MAP) Pulse Ox O2 Delivery O2 Flow Rate FiO2 07/08/17 15:58 97.2 78 20 115/55 (75) 94 Room Air I&O Intake and Output 07/08/17 07:00 Intake Total 840 ml Balance 840 ml Intake Oral 840 ml Labs: Laboratory Tests Test 07/07/17 17:00 07/07/17 19:37 07/08/17 07:02 07/08/17 11:16 Glucose (Fingerstick) 147 mg/dL (70-99) H 144 mg/dL (70-99) H 167 mg/dL (70-99) H 155 mg/dL (70-99) H Current Medications: Meds: Current Medications Acetaminophen (Tylenol) 650 mg PRN Q6HRS PRN PO PAIN / TEMP; Start 07/05/17 at 22:45 Multi-Ingredient Ointment (Analgesic Rogers) 1 rosey PRN QID PRN TP MUSCLE PAIN; Start 07/05/17 at 22:45 Al Hydroxide/Mg Hydroxide (Mylanta Plus Xs) 15 ml PRN AFTMEALHC PRN PO DYSPEPSIA; Start 07/05/17 at 22:45 Magnesium Hydroxide (Milk Of Magnesia) 2,400 mg PRN QHS PRN PO CONSTIPATION; Start 07/05/17 at 22:45 Nicotine (Nicoderm Cq 21mg) 1 patch DAILY TD Last administered on 07/08/17at 08: 03; Start 07/06/17 at 09:00 Divalproex Sodium (Depakote Sprinkles) 250 mg BID94 PO Last administered on at 16:36; Start 07/06/17 at 09:00; Stop 07/07/17 at 18:23; Status DC Divalproex Sodium (Depakote Sprinkles) 500 mg HS PO Last administered on at 21:25; Start 07/06/17 at 21:00; Stop 07/07/17 at 18:23; Status DC Memantine (Namenda) 10 mg BID PO Last administered on 07/08/17at 08:05; Start at 09:00 Rivastigmine (Exelon) 1 patch DAILY TD Last administered on 07/08/17at 08:03; Start 07/06/17 at 09:00 Acetaminophen (Tylenol) 500 mg BID PO Last administered on 07/08/17at 08:04; Start 07/06/17 at 09:00 Aspirin (Children'S Aspirin) 81 mg DAILY PO Last administered on 07/08/17at 08: 05; Start 07/06/17 at 09:00 Atorvastatin Calcium (Lipitor) 20 mg QHS PO Last administered on 07/07/17at 19: 56; Start 07/06/17 at 21:00 Carvedilol (Coreg) 3.125 mg BIDWMEALS PO Last administered on 07/08/17at 08:05; Start 07/06/17 at 08:00 Clopidogrel Bisulfate (Plavix) 75 mg DAILY PO Last administered on 07/08/17at 08 :03; Start 07/06/17 at 09:00 Finasteride (Proscar) 5 mg DAILY PO Last administered on 07/08/17at 08:04; Start 07/06/17 at 09:00 Furosemide (Lasix) 20 mg DAILY PO Last administered on 07/08/17at 08:04; Start 07/06/17 at 09:00 Gabapentin (Neurontin) 300 mg QID PO Last administered on 07/08/17at 11:38; Start 07/06/17 at 09:00 Guaifenesin (Mucinex Er) 600 mg BID PO Last administered on 07/08/17at 08:03; Start 07/06/17 at 09:00 Acetaminophen/ Hydrocodone Bitart (Lortab 5/325) 1 tab PRN Q6HRS PRN PO PAIN Last administered on 07/08/17at 11:32; Start 07/06/17 at 02:00 Insulin Aspart (NovoLOG) 18 units TIDBFRMEAL SQ Last administered on 07/08/17at 11:40; Start 07/06/17 at 07:30 Albuterol Sulfate (Ventolin) 2.5 mg PRN Q4HRS PRN NEB SHORTNESS OF BREATH Last administered on 07/08/17 11:27; Start 07/06/17 at 02:15 Albuterol/ Ipratropium (Duoneb) 3 ml Q4HRS NEB Last administered on 07/08/17at 11:28; Start 07/06/17 at 04:00 Lisinopril (Prinivil) 5 mg DAILY PO Last administered on 07/08/17at 08:04; Start 07/06/17 at 09:00 Multi-Ingredient Ointment (Analgesic Rogers) 1 rosey TID TP Last administered on at 14:00; Start 07/06/17 at 09:00 Multi-Ingred Cream/Lotion/Oil/ Oint (Hydrocerin) 1 rosey PRN TID PRN TP DRY SKIN / SCALING; Start 07/06/17 at 02:00 Tamsulosin HCl (Flomax) 0.4 mg HS PO Last administered on 07/07/17 19:56; Start 07/06/17 at 21:00 Insulin Detemir (Levemir) 70 units QHS SQ Last administered on 07/07/17at 20:00 ; Start 07/06/17 at 21:00 Cetirizine HCl (ZyrTEC) 10 mg DAILY PO Last administered on 07/08/17at 08:03; Start 07/06/17 at 09:00 Metformin HCl (Glucophage) 1,000 mg BIDWMEALS PO Last administered on at 08:05; Start 07/06/17 at 08:00 Potassium Chloride (Klor-Con) 10 meq DAILYWBKFT PO Last administered on at 08:04; Start 07/06/17 at 08:00 Non-Formulary Medication (Umeclidinium Brm/Vilanterol Tr (Anoro Ellipta 62.5-25 Mcg Inh)) 1 puff DAILY IH ; Start 07/06/17 at 09:00; Status UNV Citalopram Hydrobromide (CeleXA) 10 mg DAILY PO Last administered on 07/08/17at 08:04; Start 07/06/17 at 09:00 Pneumococcal Polyvalent Vaccine (Pneumovax 23) 0.5 ml ONCE ONCE VAX IM Last administered on 07/06/17at 10:40; Start 07/06/17 at 09:00; Stop 07/06/17 at 09:01 ; Status DC Nystatin (Nystop) 1 rosey BID TP Last administered on 07/08/17at 08:07; Start at 09:00 Divalproex Sodium (Depakote Sprinkles) 500 mg TID PO Last administered on at 11:38; Start 07/07/17 at 21:00 Trazodone HCl (Desyrel) 100 mg QHS PO Last administered on 07/07/17at 19:58; Start 07/07/17 at 21:00 Trazodone HCl (Desyrel) 100 mg PRN QHS PRN PO prn insomnia; Start 07/07/17 at 21:00 Olanzapine (ZyPREXA ZYDIS) 5 mg PRN Q2HR PRN PO ANXIETY / AGITATION Last administered on 07/08/17at 11:32; Start 07/08/17 at 11:00 Active Scripts Active Reported Depakote Sprinkle (Divalproex Sodium) 125 Mg Cap.sprink 500 Mg PO HS Duoneb 0.5-3(2.5) Mg/3 Ml (Albuterol/Ipratropium) 3 Ml Ampul.neb 3 Ml NEB PRN Q4HRS PRN Eucerin Creme (Mineral Oil/Petrolatum,White) 120 Gm Cream..g. 1 Rosey TP PRN TID PRN Tamsulosin Hcl 0.4 Mg Cap.er.24h 0.4 Mg PO HS Potassium Chloride 10 Meq Tablet.er 10 Meq PO DAILY Novolog Flexpen (Insulin Aspart) 100 Unit/1 Ml Insuln.pen 18 Units SQ TIDBFRMEAL Analgesic Rogers (Methyl Salicylate/Menthol) 28 Gm Oint...g. 1 Rosey TP TID Mucinex (Guaifenesin) 600 Mg Tablet.er 600 Mg PO BID Metformin Hcl 1,000 Mg Tablet 1,000 Mg PO BIDWMEALS Namenda (Memantine Hcl) 10 Mg Tablet 10 Mg PO BID Loratadine 10 Mg Tablet 10 Mg PO DAILY Lisinopril 5 Mg Tablet 5 Mg PO DAILY Duoneb 0.5-3(2.5) Mg/3 Ml (Albuterol/Ipratropium) 3 Ml Ampul.neb 3 Ml NEB Q4HRS Hydrocodone-Apap 5-325 (Hydrocodone Bit/Acetaminophen) 1 Each Tablet 1 Tab PO Q6HRS PRN Furosemide 20 Mg Tablet 20 Mg PO DAILY Finasteride 5 Mg Tablet 5 Mg PO DAILY EXELON 9.5mg/24hr (Rivastigmine) 1 Each Patch.td24 1 Patch TD DAILY Escitalopram Oxalate 5 Mg Tablet 5 Mg PO DAILY Depakote Sprinkle (Divalproex Sodium) 125 Mg Cap.sprink 250 Mg PO BID Clopidogrel (Clopidogrel Bisulfate) 75 Mg Tablet 75 Mg PO DAILY Carvedilol 3.125 Mg Tablet 3.125 Mg PO BIDWMEALS Atorvastatin Calcium 20 Mg Tablet 20 Mg PO QHS Anoro Ellipta 62.5-25 Mcg Inh (Umeclidinium Brm/Vilanterol Tr) 1 Each Disk.w.dev 1 Puff IH DAILY Acetaminophen 500 Mg Tablet 500 Mg PO BID Gabapentin 300 Mg Capsule 300 Mg PO QID Aspirin 81 Mg Tab.chew 81 Mg PO DAILY Lantus Solostar (Insulin Glargine,Hum.rec.anlog) 100 Unit/1 Ml Insuln.pen 70 Unit SQ QHS I have reviewed the current psychotropics carefully including drug interactions. Risk benefit ratio favors no change other than as noted in my dictated progress note. Diagnosis: Problems: (1) Dementia, vascular, with delusions (2) Alcoholic psychosis (3) Impulse control disorder (4) Anxiety disorder (5) Alcohol-induced persisting dementia (6) Paranoid behavior SAMMY QUICK MD Jul 08, 2017 16:15
[2017-07-08] MEDS: ATORVASTATIN CALCIUM 20 MG TABLET PO SCH (20:34)
[2017-07-08] MEDS: traZODone 100 MG TABLET. PO SCH (20:35)
[2017-07-08] MEDS: TAMSULOSIN 0.4 MG CAP.ER.24H. PO SCH (20:35)
[2017-07-08] MEDS: INSULIN DETEMIR 300 UNITS/3 ML INSULN.PEN. SQ SCH (20:46)
--- NOTE | 2017-07-08 22:49 | PDOC ---
Exam Note: Rober Note: Please also refer to the separate dictated note~for this date of service dictated separately.~Patient seen individually. Discussed the patient with Nursing staff reviewed the chart.~Reviewed interim history and current functioning. Reviewed vital signs,~Labs/ Radiology~and current medications noted below. Continue current treatment with the changes noted in the dictated addendum note Assessment: Vital Signs: Vital Signs Date Time Temp Pulse Resp B/P (MAP) Pulse Ox O2 Delivery O2 Flow Rate FiO2 07/08/17 20:25 95 Room Air 07/08/17 17:00 78 115/55 07/08/17 15:58 97.2 20 I&O Intake and Output 07/08/17 07:00 Intake Total 840 ml Balance 840 ml Intake Oral 840 ml Labs: Laboratory Tests Test 07/08/17 07:02 07/08/17 11:16 07/08/17 16:14 07/08/17 19:14 Glucose (Fingerstick) 167 mg/dL (70-99) H 155 mg/dL (70-99) H 147 mg/dL (70-99) H 133 mg/dL (70-99) H Current Medications: Meds: Current Medications Acetaminophen (Tylenol) 650 mg PRN Q6HRS PRN PO PAIN / TEMP; Start 07/05/17 at 22:45 Multi-Ingredient Ointment (Analgesic [place]) 1 rosey PRN QID PRN TP MUSCLE PAIN; Start 07/05/17 at 22:45 Al Hydroxide/Mg Hydroxide (Mylanta Plus Xs) 15 ml PRN AFTMEALHC PRN PO DYSPEPSIA; Start 07/05/17 at 22:45 Magnesium Hydroxide (Milk Of Magnesia) 2,400 mg PRN QHS PRN PO CONSTIPATION; Start 07/05/17 at 22:45 Nicotine (Nicoderm Cq 21mg) 1 patch DAILY TD Last administered on 07/08/17at 08: 03; Start 07/06/17 at 09:00 Divalproex Sodium (Depakote Sprinkles) 250 mg BID94 PO Last administered on at 16:36; Start 07/06/17 at 09:00; Stop 07/07/17 at 18:23; Status DC Divalproex Sodium (Depakote Sprinkles) 500 mg HS PO Last administered on at 21:25; Start 07/06/17 at 21:00; Stop 07/07/17 at 18:23; Status DC Memantine (Namenda) 10 mg BID PO Last administered on 07/08/17 20:35; Start at 09:00 Rivastigmine (Exelon) 1 patch DAILY TD Last administered on 07/08/17 08:03; Start 07/06/17 at 09:00 Acetaminophen (Tylenol) 500 mg BID PO Last administered on 07/08/17at 20:35; Start 07/06/17 at 09:00 Aspirin (Children'S Aspirin) 81 mg DAILY PO Last administered on 07/08/17 08: 05; Start 07/06/17 at 09:00 Atorvastatin Calcium (Lipitor) 20 mg QHS PO Last administered on 07/08/17 20: 34; Start 07/06/17 at 21:00 Carvedilol (Coreg) 3.125 mg BIDWMEALS PO Last administered on 07/08/17at 08:05; Start 07/06/17 at 08:00 Clopidogrel Bisulfate (Plavix) 75 mg DAILY PO Last administered on 07/08/17at 08 :03; Start 07/06/17 at 09:00 Finasteride (Proscar) 5 mg DAILY PO Last administered on 07/08/17at 08:04; Start 07/06/17 at 09:00 Furosemide (Lasix) 20 mg DAILY PO Last administered on 07/08/17at 08:04; Start 07/06/17 at 09:00 Gabapentin (Neurontin) 300 mg QID PO Last administered on 07/08/17 20:34; Start 07/06/17 at 09:00 Guaifenesin (Mucinex Er) 600 mg BID PO Last administered on 07/08/17 20:35; Start 07/06/17 at 09:00 Acetaminophen/ Hydrocodone Bitart (Lortab 5/325) 1 tab PRN Q6HRS PRN PO PAIN Last administered on 07/08/17at 11:32; Start 07/06/17 at 02:00 Insulin Aspart (NovoLOG) 18 units TIDBFRMEAL SQ Last administered on 07/08/17at 17:33; Start 07/06/17 at 07:30 Albuterol Sulfate (Ventolin) 2.5 mg PRN Q4HRS PRN NEB SHORTNESS OF BREATH Last administered on 07/08/17 11:27; Start 07/06/17 at 02:15 Albuterol/ Ipratropium (Duoneb) 3 ml Q4HRS NEB Last administered on 07/08/17 20:26; Start 07/06/17 at 04:00 Lisinopril (Prinivil) 5 mg DAILY PO Last administered on 07/08/17at 08:04; Start 07/06/17 at 09:00 Multi-Ingredient Ointment (Analgesic [place]) 1 rosey TID TP Last administered on at 20:41; Start 07/06/17 at 09:00 Multi-Ingred Cream/Lotion/Oil/ Oint (Hydrocerin) 1 rosey PRN TID PRN TP DRY SKIN / SCALING; Start 07/06/17 at 02:00 Tamsulosin HCl (Flomax) 0.4 mg HS PO Last administered on 07/08/17at 20:35; Start 07/06/17 at 21:00 Insulin Detemir (Levemir) 70 units QHS SQ Last administered on 07/08/17at 20:46 ; Start 07/06/17 at 21:00 Cetirizine HCl (ZyrTEC) 10 mg DAILY PO Last administered on 07/08/17at 08:03; Start 07/06/17 at 09:00 Metformin HCl (Glucophage) 1,000 mg BIDWMEALS PO Last administered on at 17:31; Start 07/06/17 at 08:00 Potassium Chloride (Klor-Con) 10 meq DAILYWBKFT PO Last administered on at 08:04; Start 07/06/17 at 08:00 Non-Formulary Medication (Umeclidinium Brm/Vilanterol Tr (Anoro Ellipta 62.5-25 Mcg Inh)) 1 puff DAILY IH ; Start 07/06/17 at 09:00; Status UNV Citalopram Hydrobromide (CeleXA) 10 mg DAILY PO Last administered on 07/08/17at 08:04; Start 07/06/17 at 09:00 Pneumococcal Polyvalent Vaccine (Pneumovax 23) 0.5 ml ONCE ONCE VAX IM Last administered on 07/06/17at 10:40; Start 07/06/17 at 09:00; Stop 07/06/17 at 09:01 ; Status DC Nystatin (Nystop) 1 rosey BID TP Last administered on 07/08/17at 20:41; Start at 09:00 Divalproex Sodium (Depakote Sprinkles) 500 mg TID PO Last administered on at 20:34; Start 07/07/17 at 21:00 Trazodone HCl (Desyrel) 100 mg QHS PO Last administered on 07/08/17at 20:35; Start 07/07/17 at 21:00 Trazodone HCl (Desyrel) 100 mg PRN QHS PRN PO prn insomnia; Start 07/07/17 at 21:00 Olanzapine (ZyPREXA ZYDIS) 5 mg PRN Q2HR PRN PO ANXIETY / AGITATION Last administered on 07/08/17at 11:32; Start 07/08/17 at 11:00 Active Scripts Active Reported Depakote Sprinkle (Divalproex Sodium) 125 Mg Cap.sprink 500 Mg PO HS Duoneb 0.5-3(2.5) Mg/3 Ml (Albuterol/Ipratropium) 3 Ml Ampul.neb 3 Ml NEB PRN Q4HRS PRN Eucerin Creme (Mineral Oil/Petrolatum,White) 120 Gm Cream..g. 1 Rosey TP PRN TID PRN Tamsulosin Hcl 0.4 Mg Cap.er.24h 0.4 Mg PO HS Potassium Chloride 10 Meq Tablet.er 10 Meq PO DAILY Novolog Flexpen (Insulin Aspart) 100 Unit/1 Ml Insuln.pen 18 Units SQ TIDBFRMEAL Analgesic [place] (Methyl Salicylate/Menthol) 28 Gm Oint...g. 1 Rosey TP TID Mucinex (Guaifenesin) 600 Mg Tablet.er 600 Mg PO BID Metformin Hcl 1,000 Mg Tablet 1,000 Mg PO BIDWMEALS Namenda (Memantine Hcl) 10 Mg Tablet 10 Mg PO BID Loratadine 10 Mg Tablet 10 Mg PO DAILY Lisinopril 5 Mg Tablet 5 Mg PO DAILY Duoneb 0.5-3(2.5) Mg/3 Ml (Albuterol/Ipratropium) 3 Ml Ampul.neb 3 Ml NEB Q4HRS Hydrocodone-Apap 5-325 (Hydrocodone Bit/Acetaminophen) 1 Each Tablet 1 Tab PO Q6HRS PRN Furosemide 20 Mg Tablet 20 Mg PO DAILY Finasteride 5 Mg Tablet 5 Mg PO DAILY EXELON 9.5mg/24hr (Rivastigmine) 1 Each Patch.td24 1 Patch TD DAILY Escitalopram Oxalate 5 Mg Tablet 5 Mg PO DAILY Depakote Sprinkle (Divalproex Sodium) 125 Mg Cap.sprink 250 Mg PO BID Clopidogrel (Clopidogrel Bisulfate) 75 Mg Tablet 75 Mg PO DAILY Carvedilol 3.125 Mg Tablet 3.125 Mg PO BIDWMEALS Atorvastatin Calcium 20 Mg Tablet 20 Mg PO QHS Anoro Ellipta 62.5-25 Mcg Inh (Umeclidinium Brm/Vilanterol Tr) 1 Each Disk.w.dev 1 Puff IH DAILY Acetaminophen 500 Mg Tablet 500 Mg PO BID Gabapentin 300 Mg Capsule 300 Mg PO QID Aspirin 81 Mg Tab.chew 81 Mg PO DAILY Lantus Solostar (Insulin Glargine,Hum.rec.anlog) 100 Unit/1 Ml Insuln.pen 70 Unit SQ QHS I have reviewed the current psychotropics carefully including drug interactions. Risk benefit ratio favors no change other than as noted in my dictated progress note. Diagnosis: Problems: (1) Paranoid behavior (2) Alcohol-induced persisting dementia (3) Anxiety disorder (4) Impulse control disorder (5) Alcoholic psychosis (6) Dementia, vascular, with delusions SAMMY QUICK MD Jul 08, 2017 22:49
--- NOTE | 2017-07-09 04:27 | PN ---
DATE: 07/07/2017 This note covers elements not covered in the initial note 07/07/2017. Met with the patient in the evening of 07/07/2017. The patient had a very difficult day. He slept 4 hours previous evening, is continent of urine, but chooses not to be. He has been pulling his pants down, diapers down, urinating in the hallway and corridor, on the floors. He then threw a paper towels on to the urine asking the nursing staff to clean it up, demanding, and repeated this 3 times quite paranoid, psychotic, labile in his mood. REVIEW OF SYSTEMS: Ambulation impaired with walker. No CV, , pulmonary, eye system symptoms on review. Reliability poor. MENTAL STATUS EXAM: Oriented to himself and situation. Speech coherent, rapid at times. Abstraction fair, computation impaired, language function intact, attention span short. Mood and affect labile, psychotic, paranoid, confused with short-term memory deficits. 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 PLAN: Valproic acid level is subtherapeutic at 16. Increase Depakote Sprinkles from 250 b.i.d. and 500 at bedtime to p.o. 500 mg 3 times a day. Check CBC, CMP, valproic acid level in 3 days. Maintain rest of the psychotropics for now, but may need to add Seroquel as a mood stabilizer. SAMMY QUICK MD DR: REID/elvia JOB#: [id number] / [id number]
[2017-07-09] MEDS: IPRATRPIUM/ALBUTEROL 0.5/2.5MG 3 ML NEBU. NEB SCH ×6 (05:39→21:06)
[2017-07-09 06:00] VITALS: BP 137/67
[2017-07-09] MEDS: FUROSEMIDE 20 MG TABLET PO SCH (08:11)
[2017-07-09] MEDS: metFORMIN 500 MG TABLET PO SCH ×2 (08:11→17:31)
[2017-07-09] MEDS: GABAPENTIN 300 MG CAPSULE. PO SCH ×4 (08:12→21:16)
[2017-07-09] MEDS: LISINOPRIL 5 MG TABLET. PO SCH (08:12)
[2017-07-09] MEDS: DIVALPROEX 125 MG CAP.SPRINK PO SCH ×3 (08:12→21:16)
[2017-07-09] MEDS: ACETAMINOPHEN 500 MG TABLET PO SCH ×2 (08:12→21:15)
[2017-07-09] MEDS: CITALOPRAM 10 MG TABLET. PO SCH (08:13)
[2017-07-09] MEDS: CARVEDILOL 3.125 MG TABLET PO SCH ×2 (08:13→17:31)
[2017-07-09] MEDS: CLOPIDOGREL BISULFATE 75 MG TABLET PO SCH (08:13)
[2017-07-09] MEDS: CETIRIZINE HCL 10 MG TABLET PO SCH (08:13)
[2017-07-09] MEDS: MEMANTINE 10 MG TABLET. PO SCH ×2 (08:13→21:16)
[2017-07-09] MEDS: FINASTERIDE 5 MG TABLET PO SCH (08:13)
[2017-07-09] MEDS: NICOTINE 21MG PATCH. TD SCH (08:14)
[2017-07-09] MEDS: POTASSIUM CHLORIDE 10 MEQ TABLET.ER. PO SCH (08:14)
[2017-07-09] MEDS: RIVASTIGMINE 9.5MG PATCH. TD SCH (08:14)
[2017-07-09] MEDS: ASPIRIN 81 MG TAB.CHEW PO SCH (08:14)
[2017-07-09] MEDS: METHYL SALICYLATE/MENTHOL TOPICAL OINTMENT 29GM TUBE. TP SCH ×3 (08:18→21:19)
[2017-07-09] MEDS: NYSTATIN TOPICAL POWDER 15GM BOTTLE. TP SCH ×2 (08:19→21:22)
[2017-07-09] MEDS: INSULIN ASPART 300 UNITS/3 ML INSULN.PEN SQ SCH ×3 (08:20→17:29)
[2017-07-09] MEDS: HYDROcodone/APAP 5/325MG 1 TAB TABLET PO PRN (09:07)
[2017-07-09 16:03] VITALS: BP 148/67
--- NOTE | 2017-07-09 20:48 | PDOC ---
Exam Note: Rober Note: Please also refer to the separate dictated note~for this date of service dictated separately.~Patient seen individually. Discussed the patient with Nursing staff reviewed the chart.~Reviewed interim history and current functioning. Reviewed vital signs,~Labs/ Radiology~and current medications noted below. Continue current treatment with the changes noted in the dictated addendum note Assessment: Vital Signs: Vital Signs Date Time Temp Pulse Resp B/P (MAP) Pulse Ox O2 Delivery O2 Flow Rate FiO2 07/09/17 17:31 93 148/67 07/09/17 16:06 95 Room Air 07/09/17 16:03 97.5 18 I&O Intake and Output 07/09/17 07:00 Intake Total 1120 ml Balance 1120 ml Intake Oral 1120 ml Labs: Laboratory Tests Test 07/09/17 08:07 07/09/17 12:15 07/09/17 17:15 07/09/17 19:18 Glucose (Fingerstick) 140 mg/dL (70-99) H 112 mg/dL (70-99) H 105 mg/dL (70-99) H 154 mg/dL (70-99) H Current Medications: Meds: Current Medications Acetaminophen (Tylenol) 650 mg PRN Q6HRS PRN PO PAIN / TEMP; Start 07/05/17 at 22:45 Multi-Ingredient Ointment (Analgesic [place]) 1 rosey PRN QID PRN TP MUSCLE PAIN; Start 07/05/17 at 22:45 Al Hydroxide/Mg Hydroxide (Mylanta Plus Xs) 15 ml PRN AFTMEALHC PRN PO DYSPEPSIA; Start 07/05/17 at 22:45 Magnesium Hydroxide (Milk Of Magnesia) 2,400 mg PRN QHS PRN PO CONSTIPATION; Start 07/05/17 at 22:45 Nicotine (Nicoderm Cq 21mg) 1 patch DAILY TD Last administered on 07/09/17at 08: 14; Start 07/06/17 at 09:00 Divalproex Sodium (Depakote Sprinkles) 250 mg BID94 PO Last administered on at 16:36; Start 07/06/17 at 09:00; Stop 07/07/17 at 18:23; Status DC Divalproex Sodium (Depakote Sprinkles) 500 mg HS PO Last administered on at 21:25; Start 07/06/17 at 21:00; Stop 07/07/17 at 18:23; Status DC Memantine (Namenda) 10 mg BID PO Last administered on 07/09/17 08:13; Start at 09:00 Rivastigmine (Exelon) 1 patch DAILY TD Last administered on 07/09/17 08:14; Start 07/06/17 at 09:00 Acetaminophen (Tylenol) 500 mg BID PO Last administered on 07/09/17 08:12; Start 07/06/17 at 09:00 Aspirin (Children'S Aspirin) 81 mg DAILY PO Last administered on 07/09/17 08: 14; Start 07/06/17 at 09:00 Atorvastatin Calcium (Lipitor) 20 mg QHS PO Last administered on 07/08/17 20: 34; Start 07/06/17 at 21:00 Carvedilol (Coreg) 3.125 mg BIDWMEALS PO Last administered on 07/09/17 17:31; Start 07/06/17 at 08:00 Clopidogrel Bisulfate (Plavix) 75 mg DAILY PO Last administered on 07/09/17 08 :13; Start 07/06/17 at 09:00 Finasteride (Proscar) 5 mg DAILY PO Last administered on 07/09/17 08:13; Start 07/06/17 at 09:00 Furosemide (Lasix) 20 mg DAILY PO Last administered on 07/09/17at 08:11; Start 07/06/17 at 09:00 Gabapentin (Neurontin) 300 mg QID PO Last administered on 07/09/17 17:31; Start 07/06/17 at 09:00 Guaifenesin (Mucinex Er) 600 mg BID PO Last administered on 07/09/17 08:12; Start 07/06/17 at 09:00 Acetaminophen/ Hydrocodone Bitart (Lortab 5/325) 1 tab PRN Q6HRS PRN PO PAIN Last administered on 07/09/17 09:07; Start 07/06/17 at 02:00 Insulin Aspart (NovoLOG) 18 units TIDBFRMEAL SQ Last administered on 07/09/17 17:29; Start 07/06/17 at 07:30 Albuterol Sulfate (Ventolin) 2.5 mg PRN Q4HRS PRN NEB SHORTNESS OF BREATH Last administered on 07/08/17 11:27; Start 07/06/17 at 02:15 Albuterol/ Ipratropium (Duoneb) 3 ml Q4HRS NEB Last administered on 07/09/17at 16:06; Start 07/06/17 at 04:00 Lisinopril (Prinivil) 5 mg DAILY PO Last administered on 07/09/17at 08:12; Start 07/06/17 at 09:00 Multi-Ingredient Ointment (Analgesic [place]) 1 rosey TID TP Last administered on 12:10; Start 07/06/17 at 09:00 Multi-Ingred Cream/Lotion/Oil/ Oint (Hydrocerin) 1 rosey PRN TID PRN TP DRY SKIN / SCALING; Start 07/06/17 at 02:00 Tamsulosin HCl (Flomax) 0.4 mg HS PO Last administered on 07/08/17at 20:35; Start 07/06/17 at 21:00 Insulin Detemir (Levemir) 70 units QHS SQ Last administered on 07/08/17at 20:46 ; Start 07/06/17 at 21:00 Cetirizine HCl (ZyrTEC) 10 mg DAILY PO Last administered on 07/09/17 08:13; Start 07/06/17 at 09:00 Metformin HCl (Glucophage) 1,000 mg BIDWMEALS PO Last administered on at 17:31; Start 07/06/17 at 08:00 Potassium Chloride (Klor-Con) 10 meq DAILYWBKFT PO Last administered on at 08:14; Start 07/06/17 at 08:00 Non-Formulary Medication (Umeclidinium Brm/Vilanterol Tr (Anoro Ellipta 62.5-25 Mcg Inh)) 1 puff DAILY IH ; Start 07/06/17 at 09:00; Status UNV Citalopram Hydrobromide (CeleXA) 10 mg DAILY PO Last administered on 07/09/17at 08:13; Start 07/06/17 at 09:00 Pneumococcal Polyvalent Vaccine (Pneumovax 23) 0.5 ml ONCE ONCE VAX IM Last administered on 07/06/17at 10:40; Start 07/06/17 at 09:00; Stop 07/06/17 at 09:01 ; Status DC Nystatin (Nystop) 1 rosey BID TP Last administered on 07/09/17at 08:19; Start at 09:00 Divalproex Sodium (Depakote Sprinkles) 500 mg TID PO Last administered on at 12:09; Start 07/07/17 at 21:00 Trazodone HCl (Desyrel) 100 mg QHS PO Last administered on 07/08/17at 20:35; Start 07/07/17 at 21:00 Trazodone HCl (Desyrel) 100 mg PRN QHS PRN PO prn insomnia; Start 07/07/17 at 21:00 Olanzapine (ZyPREXA ZYDIS) 5 mg PRN Q2HR PRN PO ANXIETY / AGITATION Last administered on 07/08/17at 11:32; Start 07/08/17 at 11:00 Active Scripts Active Reported Depakote Sprinkle (Divalproex Sodium) 125 Mg Cap.sprink 500 Mg PO HS Duoneb 0.5-3(2.5) Mg/3 Ml (Albuterol/Ipratropium) 3 Ml Ampul.neb 3 Ml NEB PRN Q4HRS PRN Eucerin Creme (Mineral Oil/Petrolatum,White) 120 Gm Cream..g. 1 Rosey TP PRN TID PRN Tamsulosin Hcl 0.4 Mg Cap.er.24h 0.4 Mg PO HS Potassium Chloride 10 Meq Tablet.er 10 Meq PO DAILY Novolog Flexpen (Insulin Aspart) 100 Unit/1 Ml Insuln.pen 18 Units SQ TIDBFRMEAL Analgesic [place] (Methyl Salicylate/Menthol) 28 Gm Oint...g. 1 Rosey TP TID Mucinex (Guaifenesin) 600 Mg Tablet.er 600 Mg PO BID Metformin Hcl 1,000 Mg Tablet 1,000 Mg PO BIDWMEALS Namenda (Memantine Hcl) 10 Mg Tablet 10 Mg PO BID Loratadine 10 Mg Tablet 10 Mg PO DAILY Lisinopril 5 Mg Tablet 5 Mg PO DAILY Duoneb 0.5-3(2.5) Mg/3 Ml (Albuterol/Ipratropium) 3 Ml Ampul.neb 3 Ml NEB Q4HRS Hydrocodone-Apap 5-325 (Hydrocodone Bit/Acetaminophen) 1 Each Tablet 1 Tab PO Q6HRS PRN Furosemide 20 Mg Tablet 20 Mg PO DAILY Finasteride 5 Mg Tablet 5 Mg PO DAILY EXELON 9.5mg/24hr (Rivastigmine) 1 Each Patch.td24 1 Patch TD DAILY Escitalopram Oxalate 5 Mg Tablet 5 Mg PO DAILY Depakote Sprinkle (Divalproex Sodium) 125 Mg Cap.sprink 250 Mg PO BID Clopidogrel (Clopidogrel Bisulfate) 75 Mg Tablet 75 Mg PO DAILY Carvedilol 3.125 Mg Tablet 3.125 Mg PO BIDWMEALS Atorvastatin Calcium 20 Mg Tablet 20 Mg PO QHS Anoro Ellipta 62.5-25 Mcg Inh (Umeclidinium Brm/Vilanterol Tr) 1 Each Disk.w.dev 1 Puff IH DAILY Acetaminophen 500 Mg Tablet 500 Mg PO BID Gabapentin 300 Mg Capsule 300 Mg PO QID Aspirin 81 Mg Tab.chew 81 Mg PO DAILY Lantus Solostar (Insulin Glargine,Hum.rec.anlog) 100 Unit/1 Ml Insuln.pen 70 Unit SQ QHS I have reviewed the current psychotropics carefully including drug interactions. Risk benefit ratio favors no change other than as noted in my dictated progress note. Diagnosis: Problems: (1) Paranoid behavior (2) Alcohol-induced persisting dementia (3) Anxiety disorder (4) Impulse control disorder (5) Alcoholic psychosis (6) Dementia, vascular, with delusions SAMMY QUICK MD Jul 09, 2017 20:48
--- NOTE | 2017-07-09 21:07 | PN ---
DATE: 07/08/2017 This is a late entry for 07/08/2017 and covers the elements not covered in my initial note 07/08/2017. SUBJECTIVE: I have been called by the nursing staff as an emergency earlier in the day on account of the patient's marked mood lability, yelling, delusional, telling his daughter on the telephone that they put him in a straitjacket and daughter was questioning this with nursing staff. He is quite agitated, we started Zyprexa p.r.n. He later took a shower after lunch. Complains of intermittent pain, slept 5 hours previous evening. REVIEW OF SYSTEMS: Ambulation impaired, in wheelchair. No CV, , pulmonary, eye system symptoms on review, has vague somatic symptoms. MENTAL STATUS EXAM: Oriented to himself and situation. Speech coherent, rapid, loud at times, intense. Abstraction fair, computation impaired, language function intact, attention span short. Mood and affect remains quite labile, psychotic, intermittently. LABORATORY DATA: Reviewed. 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 Rest unchanged. PLAN: Valproic acid level was subtherapeutic at 16. Depakote has been increased. Repeat labs level on 07/10/2017. Continue Rest unchanged. Zyprexa was added p.r.n. MAN Francoise QUICK MD DR: REID/elvia JOB#: [id number] / [id number]
[2017-07-09] MEDS: ATORVASTATIN CALCIUM 20 MG TABLET PO SCH (21:16)
[2017-07-09] MEDS: TAMSULOSIN 0.4 MG CAP.ER.24H. PO SCH (21:16)
[2017-07-09] MEDS: traZODone 100 MG TABLET. PO SCH (21:16)
[2017-07-09] MEDS: INSULIN DETEMIR 300 UNITS/3 ML INSULN.PEN. SQ SCH (21:21)
[2017-07-10] MEDS: HYDROcodone/APAP 5/325MG 1 TAB TABLET PO PRN (03:09)
[2017-07-10] MEDS: IPRATRPIUM/ALBUTEROL 0.5/2.5MG 3 ML NEBU. NEB SCH ×6 (04:00→21:40)
[2017-07-10] MEDS: ACETAMINOPHEN 325 MG TABLET PO PRN ×2 (06:08→17:52)
[2017-07-10 06:12] VITALS: BP 119/72
[2017-07-10 06:43] LABS: BASO # 0.1 x10^3/uL (0.0-0.2); BASO % 1 % (0-3); EOS # 0.2 x10^3/uL (0.0-0.7); EOS % 2 % (0-3); HEMATOCRIT 38.3 % (39.0-53.0); HEMOGLOBIN 12.9 g/dL (13.0-17.5); LYMPH # 3.8 x10^3/uL (1.0-4.8); LYMPH % 40 % (24-48); MEAN CORPUSCULAR HEMOGLOBIN 30 pg (25-35); MEAN CORPUSCULAR HGB CONC 34 g/dL (31-37); MEAN CORPUSCULAR VOLUME 90 fL (79-100); MONO # 0.7 x10^3/uL (0.0-1.1); MONO % 7 % (0-9); NEUT # 4.8 x10^3uL (1.8-7.7); NEUT % 50 % (31-73); PLATELET COUNT 185 x10^3/uL (140-400); RED BLOOD COUNT 4.25 x10^6/uL (4.30-5.70); RED CELL DISTRIBUTION WIDTH 15.5 % (11.5-14.5); WHITE BLOOD COUNT 9.6 x10^3/uL (4.0-11.0)
[2017-07-10 06:55] LABS: ALBUMIN/GLOBULIN RATIO 0.7 (1.0-1.7); ALK PHOS 77 U/L (46-116); ALT (SGPT) 27 U/L (16-63); ANION GAP 9 (6-14); AST (SGOT) 19 U/L (15-37); BLOOD UREA NITROGEN 20 mg/dL (8-26); BUN/CREATININE RATIO 20 (6-20); CALCIUM 9.2 mg/dL (8.5-10.1); CARBON DIOXIDE 26 mmol/L (21-32); CHLORIDE 108 mmol/L (98-107); GFR 72.5; GLUCOSE 126 mg/dL (70-99); POTASSIUM 4.6 mmol/L (3.5-5.1); SODIUM 143 mmol/L (136-145); TOTAL BILIRUBIN 0.2 mg/dL (0.2-1.0); TOTAL PROTEIN 7.3 g/dL (6.4-8.2)
[2017-07-10 06:57] LABS: VAL ACID 28 mcg/mL (50-100)
[2017-07-10] MEDS: RIVASTIGMINE 9.5MG PATCH. TD SCH (08:39)
[2017-07-10] MEDS: NICOTINE 21MG PATCH. TD SCH (08:40)
[2017-07-10] MEDS: GABAPENTIN 300 MG CAPSULE. PO SCH ×4 (08:41→19:45)
[2017-07-10] MEDS: CITALOPRAM 10 MG TABLET. PO SCH (08:41)
[2017-07-10] MEDS: CETIRIZINE HCL 10 MG TABLET PO SCH (08:41)
[2017-07-10] MEDS: CARVEDILOL 3.125 MG TABLET PO SCH ×2 (08:41→17:04)
[2017-07-10] MEDS: ASPIRIN 81 MG TAB.CHEW PO SCH (08:41)
[2017-07-10] MEDS: POTASSIUM CHLORIDE 10 MEQ TABLET.ER. PO SCH (08:41)
[2017-07-10] MEDS: CLOPIDOGREL BISULFATE 75 MG TABLET PO SCH (08:41)
[2017-07-10] MEDS: DIVALPROEX 125 MG CAP.SPRINK PO SCH ×3 (08:41→19:44)
[2017-07-10] MEDS: metFORMIN 500 MG TABLET PO SCH ×2 (08:41→17:03)
[2017-07-10] MEDS: MEMANTINE 10 MG TABLET. PO SCH ×2 (08:42→19:45)
[2017-07-10] MEDS: LISINOPRIL 5 MG TABLET. PO SCH (08:42)
[2017-07-10] MEDS: ACETAMINOPHEN 500 MG TABLET PO SCH ×2 (08:42→19:44)
[2017-07-10] MEDS: FUROSEMIDE 20 MG TABLET PO SCH (08:42)
[2017-07-10] MEDS: FINASTERIDE 5 MG TABLET PO SCH (08:42)
[2017-07-10] MEDS: NYSTATIN TOPICAL POWDER 15GM BOTTLE. TP SCH ×2 (08:43→19:49)
[2017-07-10] MEDS: METHYL SALICYLATE/MENTHOL TOPICAL OINTMENT 29GM TUBE. TP SCH ×3 (08:43→19:49)
[2017-07-10] MEDS: INSULIN ASPART 300 UNITS/3 ML INSULN.PEN SQ SCH ×3 (08:49→17:05)
[2017-07-10 15:15] VITALS: BP 133/69
[2017-07-10] MEDS: traZODone 100 MG TABLET. PO SCH (19:44)
[2017-07-10] MEDS: ATORVASTATIN CALCIUM 20 MG TABLET PO SCH (19:44)
[2017-07-10] MEDS: INSULIN DETEMIR 300 UNITS/3 ML INSULN.PEN. SQ SCH (19:48)
--- NOTE | 2017-07-10 20:56 | PDOC ---
Exam Note: Rober Note: Please also refer to the separate dictated note~for this date of service dictated separately.~Patient seen individually. Discussed the patient with Nursing staff reviewed the chart.~Reviewed interim history and current functioning. Reviewed vital signs,~Labs/ Radiology~and current medications noted below. Continue current treatment with the changes noted in the dictated addendum note Assessment: Vital Signs: Vital Signs Date Time Temp Pulse Resp B/P (MAP) Pulse Ox O2 Delivery O2 Flow Rate FiO2 07/10/17 17:04 99 133/69 07/10/17 16:39 97 Room Air 07/10/17 15:15 97.0 22 07/10/17 06:12 2.0 I&O Intake and Output 07/10/17 07:00 Intake Total 1680 ml Balance 1680 ml Intake Oral 1680 ml Labs: Laboratory Tests Test 07/10/17 06:24 07/10/17 07:27 07/10/17 11:40 07/10/17 16:26 White Blood Count 9.6 x10^3/uL (4.0-11.0) Red Blood Count 4.25 x10^6/uL (4.30-5.70) L Hemoglobin 12.9 g/dL (13.0-17.5) L Hematocrit 38.3 % (39.0-53.0) L Mean Corpuscular Volume 90 fL (79-100) Mean Corpuscular Hemoglobin 30 pg (25-35) Mean Corpuscular Hemoglobin Concent 34 g/dL (31-37) Red Cell Distribution Width 15.5 % (11.5-14.5) H Platelet Count 185 x10^3/uL (140-400) Neutrophils (%) (Auto) 50 % (31-73) Lymphocytes (%) (Auto) 40 % (24-48) Monocytes (%) (Auto) 7 % (0-9) Eosinophils (%) (Auto) 2 % (0-3) Basophils (%) (Auto) 1 % (0-3) Neutrophils # (Auto) 4.8 x10^3uL (1.8-7.7) Lymphocytes # (Auto) 3.8 x10^3/uL (1.0-4.8) Monocytes # (Auto) 0.7 x10^3/uL (0.0-1.1) Eosinophils # (Auto) 0.2 x10^3/uL (0.0-0.7) Basophils # (Auto) 0.1 x10^3/uL (0.0-0.2) Sodium Level 143 mmol/L (136-145) Potassium Level 4.6 mmol/L (3.5-5.1) Chloride Level 108 mmol/L (98-107) H Carbon Dioxide Level 26 mmol/L (21-32) Anion Gap 9 (6-14) Blood Urea Nitrogen 20 mg/dL (8-26) Creatinine 1.0 mg/dL (0.7-1.3) Estimated GFR (Cockcroft-Gault) 72.5 BUN/Creatinine Ratio 20 (6-20) Glucose Level 126 mg/dL (70-99) H Calcium Level 9.2 mg/dL (8.5-10.1) Total Bilirubin 0.2 mg/dL (0.2-1.0) Aspartate Amino Transferase (AST) 19 U/L (15-37) Alanine Aminotransferase (ALT) 27 U/L (16-63) Alkaline Phosphatase 77 U/L (46-116) Total Protein 7.3 g/dL (6.4-8.2) Albumin 3.0 g/dL (3.4-5.0) L Albumin/Globulin Ratio 0.7 (1.0-1.7) L Valproic Acid Level 28 mcg/mL (50-100) L Valproic Acid Last Dose Date 07/09/17 Valproic Acid Last Dose Time 2100 Glucose (Fingerstick) 169 mg/dL (70-99) H 139 mg/dL (70-99) H 93 mg/dL (70-99) Test 07/10/17 19:28 Glucose (Fingerstick) 128 mg/dL (70-99) H Current Medications: Meds: Current Medications Acetaminophen (Tylenol) 650 mg PRN Q6HRS PRN PO PAIN / TEMP Last administered on 07/10/17at 17:52; Start 07/05/17 at 22:45 Multi-Ingredient Ointment (Analgesic [place]) 1 rosey PRN QID PRN TP MUSCLE PAIN; Start 07/05/17 at 22:45 Al Hydroxide/Mg Hydroxide (Mylanta Plus Xs) 15 ml PRN AFTMEALHC PRN PO DYSPEPSIA; Start 07/05/17 at 22:45 Magnesium Hydroxide (Milk Of Magnesia) 2,400 mg PRN QHS PRN PO CONSTIPATION; Start 07/05/17 at 22:45 Nicotine (Nicoderm Cq 21mg) 1 patch DAILY TD Last administered on 07/10/17 08: 40; Start 07/06/17 at 09:00 Divalproex Sodium (Depakote Sprinkles) 250 mg [id number] PO Last administered on 16:36; Start 07/06/17 at 09:00; Stop 07/07/17 at 18:23; Status DC Divalproex Sodium (Depakote Sprinkles) 500 mg HS PO Last administered on 21:25; Start 07/06/17 at 21:00; Stop 07/07/17 at 18:23; Status DC Memantine (Namenda) 10 mg BID PO Last administered on 07/10/17 19:45; Start at 09:00 Rivastigmine (Exelon) 1 patch DAILY TD Last administered on 07/10/17 08:39; Start 07/06/17 at 09:00 Acetaminophen (Tylenol) 500 mg BID PO Last administered on 07/10/17 19:44; Start 07/06/17 at 09:00 Aspirin (Children'S Aspirin) 81 mg DAILY PO Last administered on 07/10/17 08: 41; Start 07/06/17 at 09:00 Atorvastatin Calcium (Lipitor) 20 mg QHS PO Last administered on 07/10/17 19: 44; Start 07/06/17 at 21:00 Carvedilol (Coreg) 3.125 mg BIDWMEALS PO Last administered on 07/10/17 17:04; Start 07/06/17 at 08:00 Clopidogrel Bisulfate (Plavix) 75 mg DAILY PO Last administered on 07/10/17 08 :41; Start 07/06/17 at 09:00 Finasteride (Proscar) 5 mg DAILY PO Last administered on 07/10/17 08:42; Start 07/06/17 at 09:00 Furosemide (Lasix) 20 mg DAILY PO Last administered on 07/10/17 08:42; Start 07/06/17 at 09:00 Gabapentin (Neurontin) 300 mg QID PO Last administered on 07/10/17 19:45; Start 07/06/17 at 09:00 Guaifenesin (Mucinex Er) 600 mg BID PO Last administered on 07/10/17 19:45; Start 07/06/17 at 09:00 Acetaminophen/ Hydrocodone Bitart (Lortab 5/325) 1 tab PRN Q6HRS PRN PO PAIN Last administered on 07/10/17 03:09; Start 07/06/17 at 02:00 Insulin Aspart (NovoLOG) 18 units TIDBFRMEAL SQ Last administered on 07/10/17 17:05; Start 07/06/17 at 07:30 Albuterol Sulfate (Ventolin) 2.5 mg PRN Q4HRS PRN NEB SHORTNESS OF BREATH Last administered on 07/08/17 11:27; Start 07/06/17 at 02:15 Albuterol/ Ipratropium (Duoneb) 3 ml Q4HRS NEB Last administered on 07/10/17 16:38; Start 07/06/17 at 04:00 Lisinopril (Prinivil) 5 mg DAILY PO Last administered on 07/10/17 08:42; Start 07/06/17 at 09:00 Multi-Ingredient Ointment (Analgesic [place]) 1 rosey TID TP Last administered on 19:49; Start 07/06/17 at 09:00 Multi-Ingred Cream/Lotion/Oil/ Oint (Hydrocerin) 1 rosey PRN TID PRN TP DRY SKIN / SCALING; Start 07/06/17 at 02:00 Tamsulosin HCl (Flomax) 0.4 mg HS PO Last administered on 07/09/17 21:16; Start 07/06/17 at 21:00 Insulin Detemir (Levemir) 70 units QHS SQ Last administered on 07/10/17 19:48 ; Start 07/06/17 at 21:00 Cetirizine HCl (ZyrTEC) 10 mg DAILY PO Last administered on 07/10/17 08:41; Start 07/06/17 at 09:00 Metformin HCl (Glucophage) 1,000 mg BIDWMEALS PO Last administered on 17:03; Start 07/06/17 at 08:00 Potassium Chloride (Klor-Con) 10 meq DAILYWBKFT PO Last administered on at 08:41; Start 07/06/17 at 08:00 Non-Formulary Medication (Umeclidinium Brm/Vilanterol Tr (Anoro Ellipta 62.5-25 Mcg Inh)) 1 puff DAILY IH ; Start 07/06/17 at 09:00; Status UNV Citalopram Hydrobromide (CeleXA) 10 mg DAILY PO Last administered on 07/10/17at 08:41; Start 07/06/17 at 09:00 Pneumococcal Polyvalent Vaccine (Pneumovax 23) 0.5 ml ONCE ONCE VAX IM Last administered on 07/06/17at 10:40; Start 07/06/17 at 09:00; Stop 07/06/17 at 09:01 ; Status DC Nystatin (Nystop) 1 rosey BID TP Last administered on 07/10/17at 19:49; Start at 09:00 Divalproex Sodium (Depakote Sprinkles) 500 mg TID PO Last administered on at 12:32; Start 07/07/17 at 21:00; Stop 07/10/17 at 18:32; Status DC Trazodone HCl (Desyrel) 100 mg QHS PO Last administered on 07/10/17at 19:44; Start 07/07/17 at 21:00 Trazodone HCl (Desyrel) 100 mg PRN QHS PRN PO prn insomnia; Start 07/07/17 at 21:00 Olanzapine (ZyPREXA ZYDIS) 5 mg PRN Q2HR PRN PO ANXIETY / AGITATION Last administered on 07/08/17at 11:32; Start 07/08/17 at 11:00 Divalproex Sodium (Depakote Sprinkles) 625 mg TID PO Last administered on at 19:44; Start 07/10/17 at 21:00 Quetiapine Fumarate (SEROquel) 12.5 mg TID@0900,1300,1700 PO ; Start 07/11/17 at 09:00 Active Scripts Active Reported Depakote Sprinkle (Divalproex Sodium) 125 Mg Cap.sprink 500 Mg PO HS Duoneb 0.5-3(2.5) Mg/3 Ml (Albuterol/Ipratropium) 3 Ml Ampul.neb 3 Ml NEB PRN Q4HRS PRN Eucerin Creme (Mineral Oil/Petrolatum,White) 120 Gm Cream..g. 1 Rosey TP PRN TID PRN Tamsulosin Hcl 0.4 Mg Cap.er.24h 0.4 Mg PO HS Potassium Chloride 10 Meq Tablet.er 10 Meq PO DAILY Novolog Flexpen (Insulin Aspart) 100 Unit/1 Ml Insuln.pen 18 Units SQ TIDBFRMEAL Analgesic [place] (Methyl Salicylate/Menthol) 28 Gm Oint...g. 1 Rosey TP TID Mucinex (Guaifenesin) 600 Mg Tablet.er 600 Mg PO BID Metformin Hcl 1,000 Mg Tablet 1,000 Mg PO BIDWMEALS Namenda (Memantine Hcl) 10 Mg Tablet 10 Mg PO BID Loratadine 10 Mg Tablet 10 Mg PO DAILY Lisinopril 5 Mg Tablet 5 Mg PO DAILY Duoneb 0.5-3(2.5) Mg/3 Ml (Albuterol/Ipratropium) 3 Ml Ampul.neb 3 Ml NEB Q4HRS Hydrocodone-Apap 5-325 (Hydrocodone Bit/Acetaminophen) 1 Each Tablet 1 Tab PO Q6HRS PRN Furosemide 20 Mg Tablet 20 Mg PO DAILY Finasteride 5 Mg Tablet 5 Mg PO DAILY EXELON 9.5mg/24hr (Rivastigmine) 1 Each Patch.td24 1 Patch TD DAILY Escitalopram Oxalate 5 Mg Tablet 5 Mg PO DAILY Depakote Sprinkle (Divalproex Sodium) 125 Mg Cap.sprink 250 Mg PO BID Clopidogrel (Clopidogrel Bisulfate) 75 Mg Tablet 75 Mg PO DAILY Carvedilol 3.125 Mg Tablet 3.125 Mg PO BIDWMEALS Atorvastatin Calcium 20 Mg Tablet 20 Mg PO QHS Anoro Ellipta 62.5-25 Mcg Inh (Umeclidinium Brm/Vilanterol Tr) 1 Each Disk.w.dev 1 Puff IH DAILY Acetaminophen 500 Mg Tablet 500 Mg PO BID Gabapentin 300 Mg Capsule 300 Mg PO QID Aspirin 81 Mg Tab.chew 81 Mg PO DAILY Lantus Solostar (Insulin Glargine,Hum.rec.anlog) 100 Unit/1 Ml Insuln.pen 70 Unit SQ QHS I have reviewed the current psychotropics carefully including drug interactions. Risk benefit ratio favors no change other than as noted in my dictated progress note. Diagnosis: Problems: (1) Paranoid behavior (2) Alcohol-induced persisting dementia (3) Anxiety disorder (4) Impulse control disorder (5) Alcoholic psychosis (6) Dementia, vascular, with delusions SAMMY QUICK MD Jul 10, 2017 20:56
[2017-07-10] MEDS: TAMSULOSIN 0.4 MG CAP.ER.24H. PO SCH (21:00)
--- NOTE | 2017-07-10 21:52 | PN ---
DATE: 07/09/2017 PSYCHIATRIC PROGRESS NOTE This late entry 07/09/2017 covers elements not covered in my initial note of 07/09/2017. SUBJECTIVE: Met with the patient in the evening of 07/09/2017. The patient has been calmer, cooperative with meds and assessment, slept all night, urinating on the floor, refusing to wear brief, threw the brief on the floor, rude, demanding with staff, cursing, sarcastic. I addressed this with him individually at length. REVIEW OF SYSTEMS: No CV, , pulmonary, eye system symptoms on review. Gait is unsteady, marked obesity. He is in a wheelchair. MENTAL STATUS EXAM: Oriented to himself, situation. Speech has some latency, coherent, can be rapid, loud at times. Abstraction fair, computation is impaired, language function intact. Short term memory is impaired. No suicidal or homicidal ideation. Paranoid. 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 PLAN: Continue current psychotropics. Follow labs level on the Depakote on 07/10/2017. Adjust to reach at therapeutic level. MAN Francoise QUICK MD DR: REID/elvia JOB#: [id number] / [id number]
[2017-07-11] MEDS: IPRATRPIUM/ALBUTEROL 0.5/2.5MG 3 ML NEBU. NEB SCH ×6 (04:00→22:34)
[2017-07-11 06:03] VITALS: BP 116/74
[2017-07-11] MEDS: CETIRIZINE HCL 10 MG TABLET PO SCH (10:08)
[2017-07-11] MEDS: DIVALPROEX 125 MG CAP.SPRINK PO SCH ×3 (10:09→20:25)
[2017-07-11] MEDS: ASPIRIN 81 MG TAB.CHEW PO SCH (10:10)
[2017-07-11] MEDS: CLOPIDOGREL BISULFATE 75 MG TABLET PO SCH (10:10)
[2017-07-11] MEDS: LISINOPRIL 5 MG TABLET. PO SCH (10:10)
[2017-07-11] MEDS: MEMANTINE 10 MG TABLET. PO SCH ×2 (10:10→20:25)
[2017-07-11] MEDS: ACETAMINOPHEN 500 MG TABLET PO SCH ×2 (10:10→20:25)
[2017-07-11] MEDS: CITALOPRAM 10 MG TABLET. PO SCH (10:10)
[2017-07-11] MEDS: CARVEDILOL 3.125 MG TABLET PO SCH ×2 (10:11→16:44)
[2017-07-11] MEDS: metFORMIN 500 MG TABLET PO SCH ×2 (10:11→16:44)
[2017-07-11] MEDS: FINASTERIDE 5 MG TABLET PO SCH (10:11)
[2017-07-11] MEDS: FUROSEMIDE 20 MG TABLET PO SCH (10:11)
[2017-07-11] MEDS: POTASSIUM CHLORIDE 10 MEQ TABLET.ER. PO SCH (10:12)
[2017-07-11] MEDS: QUEtiapine 25 MG TABLET. PO SCH ×3 (10:13→16:44)
[2017-07-11] MEDS: NICOTINE 21MG PATCH. TD SCH (10:14)
[2017-07-11] MEDS: GABAPENTIN 300 MG CAPSULE. PO SCH ×4 (10:14→20:25)
[2017-07-11] MEDS: RIVASTIGMINE 9.5MG PATCH. TD SCH (10:14)
[2017-07-11] MEDS: NYSTATIN TOPICAL POWDER 15GM BOTTLE. TP SCH ×2 (10:15→20:26)
[2017-07-11] MEDS: METHYL SALICYLATE/MENTHOL TOPICAL OINTMENT 29GM TUBE. TP SCH ×3 (10:15→20:26)
[2017-07-11] MEDS: INSULIN ASPART 300 UNITS/3 ML INSULN.PEN SQ SCH ×3 (10:20→16:43)
[2017-07-11 15:52] VITALS: BP 110/64
[2017-07-11] MEDS: ATORVASTATIN CALCIUM 20 MG TABLET PO SCH (20:25)
[2017-07-11] MEDS: TAMSULOSIN 0.4 MG CAP.ER.24H. PO SCH (20:25)
[2017-07-11] MEDS: traZODone 100 MG TABLET. PO SCH (20:25)
[2017-07-11] MEDS: INSULIN DETEMIR 300 UNITS/3 ML INSULN.PEN. SQ SCH (20:28)
--- NOTE | 2017-07-11 20:46 | PDOC ---
Exam Note: Rober Note: Please also refer to the separate dictated note~for this date of service dictated separately.~Patient seen individually. Discussed the patient with Nursing staff reviewed the chart.~Reviewed interim history and current functioning. Reviewed vital signs,~Labs/ Radiology~and current medications noted below. Continue current treatment with the changes noted in the dictated addendum note Assessment: Vital Signs: Vital Signs Date Time Temp Pulse Resp B/P (MAP) Pulse Ox O2 Delivery O2 Flow Rate FiO2 07/11/17 16:44 98 110/64 07/11/17 16:17 97 Room Air 07/11/17 15:52 97.1 20 07/10/17 06:12 2.0 I&O Intake and Output 07/11/17 07:00 Intake Total 1920 ml Balance 1920 ml Intake Oral 1920 ml # Bowel Movements 1 Labs: Laboratory Tests Test 07/11/17 07:26 07/11/17 11:40 07/11/17 16:25 07/11/17 19:08 Glucose (Fingerstick) 99 mg/dL (70-99) 97 mg/dL (70-99) 147 mg/dL (70-99) H 118 mg/dL (70-99) H Current Medications: Meds: Current Medications Acetaminophen (Tylenol) 650 mg PRN Q6HRS PRN PO PAIN / TEMP Last administered on 07/10/17at 17:52; Start 07/05/17 at 22:45 Multi-Ingredient Ointment (Analgesic [place]) 1 rosey PRN QID PRN TP MUSCLE PAIN; Start 07/05/17 at 22:45 Al Hydroxide/Mg Hydroxide (Mylanta Plus Xs) 15 ml PRN AFTMEALHC PRN PO DYSPEPSIA; Start 07/05/17 at 22:45 Magnesium Hydroxide (Milk Of Magnesia) 2,400 mg PRN QHS PRN PO CONSTIPATION; Start 07/05/17 at 22:45 Nicotine (Nicoderm Cq 21mg) 1 patch DAILY TD Last administered on 07/11/17at 10: 14; Start 07/06/17 at 09:00 Divalproex Sodium (Depakote Sprinkles) 250 mg BID94 PO Last administered on at 16:36; Start 07/06/17 at 09:00; Stop 07/07/17 at 18:23; Status DC Divalproex Sodium (Depakote Sprinkles) 500 mg HS PO Last administered on 21:25; Start 07/06/17 at 21:00; Stop 07/07/17 at 18:23; Status DC Memantine (Namenda) 10 mg BID PO Last administered on 07/11/17 20:25; Start at 09:00 Rivastigmine (Exelon) 1 patch DAILY TD Last administered on 07/11/17 10:14; Start 07/06/17 at 09:00 Acetaminophen (Tylenol) 500 mg BID PO Last administered on 07/11/17 20:25; Start 07/06/17 at 09:00 Aspirin (Children'S Aspirin) 81 mg DAILY PO Last administered on 07/11/17 10: 10; Start 07/06/17 at 09:00 Atorvastatin Calcium (Lipitor) 20 mg QHS PO Last administered on 07/11/17 20: 25; Start 07/06/17 at 21:00 Carvedilol (Coreg) 3.125 mg BIDWMEALS PO Last administered on 07/11/17 16:44; Start 07/06/17 at 08:00 Clopidogrel Bisulfate (Plavix) 75 mg DAILY PO Last administered on 07/11/17 10 :10; Start 07/06/17 at 09:00 Finasteride (Proscar) 5 mg DAILY PO Last administered on 07/11/17 10:11; Start 07/06/17 at 09:00 Furosemide (Lasix) 20 mg DAILY PO Last administered on 07/11/17 10:11; Start 07/06/17 at 09:00 Gabapentin (Neurontin) 300 mg QID PO Last administered on 07/11/17 20:25; Start 07/06/17 at 09:00 Guaifenesin (Mucinex Er) 600 mg BID PO Last administered on 07/11/17 20:24; Start 07/06/17 at 09:00 Acetaminophen/ Hydrocodone Bitart (Lortab 5/325) 1 tab PRN Q6HRS PRN PO PAIN Last administered on 07/10/17 03:09; Start 07/06/17 at 02:00 Insulin Aspart (NovoLOG) 18 units TIDBFRMEAL SQ Last administered on 07/11/17 16:43; Start 07/06/17 at 07:30 Albuterol Sulfate (Ventolin) 2.5 mg PRN Q4HRS PRN NEB SHORTNESS OF BREATH Last administered on 07/08/17 11:27; Start 07/06/17 at 02:15 Albuterol/ Ipratropium (Duoneb) 3 ml Q4HRS NEB Last administered on 07/11/17 16:17; Start 07/06/17 at 04:00 Lisinopril (Prinivil) 5 mg DAILY PO Last administered on 07/11/17 10:10; Start 07/06/17 at 09:00 Multi-Ingredient Ointment (Analgesic [place]) 1 rosey TID TP Last administered on 20:26; Start 07/06/17 at 09:00 Multi-Ingred Cream/Lotion/Oil/ Oint (Hydrocerin) 1 rosey PRN TID PRN TP DRY SKIN / SCALING; Start 07/06/17 at 02:00 Tamsulosin HCl (Flomax) 0.4 mg HS PO Last administered on 07/11/17 20:25; Start 07/06/17 at 21:00 Insulin Detemir (Levemir) 70 units QHS SQ Last administered on 07/11/17 20:28 ; Start 07/06/17 at 21:00 Cetirizine HCl (ZyrTEC) 10 mg DAILY PO Last administered on 07/11/17 10:08; Start 07/06/17 at 09:00 Metformin HCl (Glucophage) 1,000 mg BIDWMEALS PO Last administered on 16:44; Start 07/06/17 at 08:00 Potassium Chloride (Klor-Con) 10 meq DAILYWBKFT PO Last administered on 10:12; Start 07/06/17 at 08:00 Non-Formulary Medication (Umeclidinium Brm/Vilanterol Tr (Anoro Ellipta 62.5-25 Mcg Inh)) 1 puff DAILY IH ; Start 07/06/17 at 09:00; Status UNV Citalopram Hydrobromide (CeleXA) 10 mg DAILY PO Last administered on 07/11/17 10:10; Start 07/06/17 at 09:00 Pneumococcal Polyvalent Vaccine (Pneumovax 23) 0.5 ml ONCE ONCE VAX IM Last administered on 07/06/17at 10:40; Start 07/06/17 at 09:00; Stop 07/06/17 at 09:01 ; Status DC Nystatin (Nystop) 1 rosey BID TP Last administered on 07/11/17at 20:26; Start at 09:00 Divalproex Sodium (Depakote Sprinkles) 500 mg TID PO Last administered on at 12:32; Start 07/07/17 at 21:00; Stop 07/10/17 at 18:32; Status DC Trazodone HCl (Desyrel) 100 mg QHS PO Last administered on 07/11/17at 20:25; Start 07/07/17 at 21:00 Trazodone HCl (Desyrel) 100 mg PRN QHS PRN PO prn insomnia; Start 07/07/17 at 21:00 Olanzapine (ZyPREXA ZYDIS) 5 mg PRN Q2HR PRN PO ANXIETY / AGITATION Last administered on 07/08/17at 11:32; Start 07/08/17 at 11:00 Divalproex Sodium (Depakote Sprinkles) 625 mg TID PO Last administered on at 20:25; Start 07/10/17 at 21:00 Quetiapine Fumarate (SEROquel) 12.5 mg TID@0900,1300,1700 PO Last administered on 07/11/17at 16:44; Start 07/11/17 at 09:00 Active Scripts Active Reported Depakote Sprinkle (Divalproex Sodium) 125 Mg Cap.sprink 500 Mg PO HS Duoneb 0.5-3(2.5) Mg/3 Ml (Albuterol/Ipratropium) 3 Ml Ampul.neb 3 Ml NEB PRN Q4HRS PRN Eucerin Creme (Mineral Oil/Petrolatum,White) 120 Gm Cream..g. 1 Rosey TP PRN TID PRN Tamsulosin Hcl 0.4 Mg Cap.er.24h 0.4 Mg PO HS Potassium Chloride 10 Meq Tablet.er 10 Meq PO DAILY Novolog Flexpen (Insulin Aspart) 100 Unit/1 Ml Insuln.pen 18 Units SQ TIDBFRMEAL Analgesic [place] (Methyl Salicylate/Menthol) 28 Gm Oint...g. 1 Rosey TP TID Mucinex (Guaifenesin) 600 Mg Tablet.er 600 Mg PO BID Metformin Hcl 1,000 Mg Tablet 1,000 Mg PO BIDWMEALS Namenda (Memantine Hcl) 10 Mg Tablet 10 Mg PO BID Loratadine 10 Mg Tablet 10 Mg PO DAILY Lisinopril 5 Mg Tablet 5 Mg PO DAILY Duoneb 0.5-3(2.5) Mg/3 Ml (Albuterol/Ipratropium) 3 Ml Ampul.neb 3 Ml NEB Q4HRS Hydrocodone-Apap 5-325 (Hydrocodone Bit/Acetaminophen) 1 Each Tablet 1 Tab PO Q6HRS PRN Furosemide 20 Mg Tablet 20 Mg PO DAILY Finasteride 5 Mg Tablet 5 Mg PO DAILY EXELON 9.5mg/24hr (Rivastigmine) 1 Each Patch.td24 1 Patch TD DAILY Escitalopram Oxalate 5 Mg Tablet 5 Mg PO DAILY Depakote Sprinkle (Divalproex Sodium) 125 Mg Cap.sprink 250 Mg PO BID Clopidogrel (Clopidogrel Bisulfate) 75 Mg Tablet 75 Mg PO DAILY Carvedilol 3.125 Mg Tablet 3.125 Mg PO BIDWMEALS Atorvastatin Calcium 20 Mg Tablet 20 Mg PO QHS Anoro Ellipta 62.5-25 Mcg Inh (Umeclidinium Brm/Vilanterol Tr) 1 Each Disk.w.dev 1 Puff IH DAILY Acetaminophen 500 Mg Tablet 500 Mg PO BID Gabapentin 300 Mg Capsule 300 Mg PO QID Aspirin 81 Mg Tab.chew 81 Mg PO DAILY Lantus Solostar (Insulin Glargine,Hum.rec.anlog) 100 Unit/1 Ml Insuln.pen 70 Unit SQ QHS I have reviewed the current psychotropics carefully including drug interactions. Risk benefit ratio favors no change other than as noted in my dictated progress note. Diagnosis: Problems: (1) Paranoid behavior (2) Alcohol-induced persisting dementia (3) Anxiety disorder (4) Impulse control disorder (5) Alcoholic psychosis (6) Dementia, vascular, with delusions SAMMY QUICK MD Jul 11, 2017 20:46
[2017-07-12] MEDS: IPRATRPIUM/ALBUTEROL 0.5/2.5MG 3 ML NEBU. NEB SCH ×6 (04:00→21:27)
[2017-07-12 05:49] VITALS: BP 129/67
[2017-07-12] MEDS: RIVASTIGMINE 9.5MG PATCH. TD SCH (09:22)
[2017-07-12] MEDS: CLOPIDOGREL BISULFATE 75 MG TABLET PO SCH (09:22)
[2017-07-12] MEDS: FINASTERIDE 5 MG TABLET PO SCH (09:22)
[2017-07-12] MEDS: NICOTINE 21MG PATCH. TD SCH (09:22)
[2017-07-12] MEDS: CETIRIZINE HCL 10 MG TABLET PO SCH (09:22)
[2017-07-12] MEDS: POTASSIUM CHLORIDE 10 MEQ TABLET.ER. PO SCH (09:22)
[2017-07-12] MEDS: FUROSEMIDE 20 MG TABLET PO SCH (09:23)
[2017-07-12] MEDS: MEMANTINE 10 MG TABLET. PO SCH ×2 (09:23→20:21)
[2017-07-12] MEDS: QUEtiapine 25 MG TABLET. PO SCH ×3 (09:23→17:23)
[2017-07-12] MEDS: ASPIRIN 81 MG TAB.CHEW PO SCH (09:23)
[2017-07-12] MEDS: CARVEDILOL 3.125 MG TABLET PO SCH ×2 (09:23→17:24)
[2017-07-12] MEDS: LISINOPRIL 5 MG TABLET. PO SCH (09:23)
[2017-07-12] MEDS: GABAPENTIN 300 MG CAPSULE. PO SCH ×4 (09:23→20:21)
[2017-07-12] MEDS: CITALOPRAM 10 MG TABLET. PO SCH (09:23)
[2017-07-12] MEDS: DIVALPROEX 125 MG CAP.SPRINK PO SCH ×3 (09:24→20:21)
[2017-07-12] MEDS: ACETAMINOPHEN 500 MG TABLET PO SCH ×2 (09:24→20:21)
[2017-07-12] MEDS: metFORMIN 500 MG TABLET PO SCH ×2 (09:24→17:23)
[2017-07-12] MEDS: NYSTATIN TOPICAL POWDER 15GM BOTTLE. TP SCH ×2 (09:30→20:21)
[2017-07-12] MEDS: METHYL SALICYLATE/MENTHOL TOPICAL OINTMENT 29GM TUBE. TP SCH ×3 (09:30→20:21)
[2017-07-12] MEDS: INSULIN ASPART 300 UNITS/3 ML INSULN.PEN SQ SCH ×3 (09:31→17:25)
[2017-07-12 15:55] VITALS: BP 131/87
--- NOTE | 2017-07-12 20:01 | PN ---
DATE: 07/11/2017 PSYCHIATRIC PROGRESS NOTE This is a late entry for 07/11/2017, covers elements not covered in my initial note of 07/11/2017. SUBJECTIVE: I met with the patient in the evening of 07/11/2017 at length. Per nursing report, the patient was quite demanding in the morning, but then had a shower and was saying please and thank you to nursing staff, which is quite a marked improvement for him. After lunch, he was dancing in the groups, very appropriate, much improved. REVIEW OF SYSTEMS: Ambulation impaired with walker. No CV, , pulmonary, eye system symptoms on review. MENTAL STATUS EXAM: Oriented to himself and situation. Speech coherent, still somewhat rapid, labile at times. Abstraction fair, computation impaired, language function intact. Mood and affect, lability is improved. LABORATORY DATA: Reviewed. 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 Rest unchanged. PLAN: Continue current psychotropics. Adjust the Seroquel further as clinically indicated. Depakote is being adjusted to reach a therapeutic level. MAN Francoise QUICK MD DR: REID/elvia JOB#: [id number] / [id number]
[2017-07-12] MEDS: ATORVASTATIN CALCIUM 20 MG TABLET PO SCH (20:20)
[2017-07-12] MEDS: traZODone 100 MG TABLET. PO SCH (20:20)
[2017-07-12] MEDS: TAMSULOSIN 0.4 MG CAP.ER.24H. PO SCH (20:21)
[2017-07-12] MEDS: INSULIN DETEMIR 300 UNITS/3 ML INSULN.PEN. SQ SCH (20:22)
--- NOTE | 2017-07-12 20:54 | PDOC ---
Exam Note: Rober Note: Please also refer to the separate dictated note~for this date of service dictated separately.~Patient seen individually. Discussed the patient with Nursing staff reviewed the chart.~Reviewed interim history and current functioning. Reviewed vital signs,~Labs/ Radiology~and current medications noted below. Continue current treatment with the changes noted in the dictated addendum note Assessment: Vital Signs: Vital Signs Date Time Temp Pulse Resp B/P (MAP) Pulse Ox O2 Delivery O2 Flow Rate FiO2 07/12/17 17:24 89 131/87 07/12/17 16:29 95 Room Air 07/12/17 15:55 97.2 19 07/10/17 06:12 2.0 I&O Intake and Output 07/12/17 07:00 Intake Total 1320 ml Balance 1320 ml Intake Oral 1320 ml # Bowel Movements 1 Labs: Laboratory Tests Test 07/12/17 07:56 07/12/17 11:48 07/12/17 16:58 07/12/17 19:15 Glucose (Fingerstick) 121 mg/dL (70-99) H 144 mg/dL (70-99) H 98 mg/dL (70-99) 110 mg/dL (70-99) H Current Medications: Meds: Current Medications Acetaminophen (Tylenol) 650 mg PRN Q6HRS PRN PO PAIN / TEMP Last administered on 07/10/17at 17:52; Start 07/05/17 at 22:45 Multi-Ingredient Ointment (Analgesic Bradley) 1 rosey PRN QID PRN TP MUSCLE PAIN; Start 07/05/17 at 22:45 Al Hydroxide/Mg Hydroxide (Mylanta Plus Xs) 15 ml PRN AFTMEALHC PRN PO DYSPEPSIA; Start 07/05/17 at 22:45 Magnesium Hydroxide (Milk Of Magnesia) 2,400 mg PRN QHS PRN PO CONSTIPATION; Start 07/05/17 at 22:45 Nicotine (Nicoderm Cq 21mg) 1 patch DAILY TD Last administered on 07/12/17at 09: 22; Start 07/06/17 at 09:00 Divalproex Sodium (Depakote Sprinkles) 250 mg BID94 PO Last administered on at 16:36; Start 07/06/17 at 09:00; Stop 07/07/17 at 18:23; Status DC Divalproex Sodium (Depakote Sprinkles) 500 mg HS PO Last administered on 21:25; Start 07/06/17 at 21:00; Stop 07/07/17 at 18:23; Status DC Memantine (Namenda) 10 mg BID PO Last administered on 07/12/17 20:21; Start at 09:00 Rivastigmine (Exelon) 1 patch DAILY TD Last administered on 07/12/17 09:22; Start 07/06/17 at 09:00 Acetaminophen (Tylenol) 500 mg BID PO Last administered on 07/12/17 20:21; Start 07/06/17 at 09:00 Aspirin (Children'S Aspirin) 81 mg DAILY PO Last administered on 07/12/17 09: 23; Start 07/06/17 at 09:00 Atorvastatin Calcium (Lipitor) 20 mg QHS PO Last administered on 07/12/17 20: 20; Start 07/06/17 at 21:00 Carvedilol (Coreg) 3.125 mg BIDWMEALS PO Last administered on 07/12/17 17:24; Start 07/06/17 at 08:00 Clopidogrel Bisulfate (Plavix) 75 mg DAILY PO Last administered on 07/12/17 09 :22; Start 07/06/17 at 09:00 Finasteride (Proscar) 5 mg DAILY PO Last administered on 07/12/17 09:22; Start 07/06/17 at 09:00 Furosemide (Lasix) 20 mg DAILY PO Last administered on 07/12/17 09:23; Start 07/06/17 at 09:00 Gabapentin (Neurontin) 300 mg QID PO Last administered on 07/12/17 20:21; Start 07/06/17 at 09:00 Guaifenesin (Mucinex Er) 600 mg BID PO Last administered on 07/12/17 20:21; Start 07/06/17 at 09:00 Acetaminophen/ Hydrocodone Bitart (Lortab 5/325) 1 tab PRN Q6HRS PRN PO PAIN Last administered on 07/10/17 03:09; Start 07/06/17 at 02:00 Insulin Aspart (NovoLOG) 18 units TIDBFRMEAL SQ Last administered on 07/12/17 17:25; Start 07/06/17 at 07:30 Albuterol Sulfate (Ventolin) 2.5 mg PRN Q4HRS PRN NEB SHORTNESS OF BREATH Last administered on 07/08/17 11:27; Start 07/06/17 at 02:15 Albuterol/ Ipratropium (Duoneb) 3 ml Q4HRS NEB Last administered on 07/12/17 16:27; Start 07/06/17 at 04:00 Lisinopril (Prinivil) 5 mg DAILY PO Last administered on 07/12/17 09:23; Start 07/06/17 at 09:00 Multi-Ingredient Ointment (Analgesic Bradley) 1 rosey TID TP Last administered on 20:21; Start 07/06/17 at 09:00 Multi-Ingred Cream/Lotion/Oil/ Oint (Hydrocerin) 1 rosey PRN TID PRN TP DRY SKIN / SCALING; Start 07/06/17 at 02:00 Tamsulosin HCl (Flomax) 0.4 mg HS PO Last administered on 07/12/17 20:21; Start 07/06/17 at 21:00 Insulin Detemir (Levemir) 70 units QHS SQ Last administered on 07/12/17 20:22 ; Start 07/06/17 at 21:00 Cetirizine HCl (ZyrTEC) 10 mg DAILY PO Last administered on 07/12/17 09:22; Start 07/06/17 at 09:00 Metformin HCl (Glucophage) 1,000 mg BIDWMEALS PO Last administered on 17:23; Start 07/06/17 at 08:00 Potassium Chloride (Klor-Con) 10 meq DAILYWBKFT PO Last administered on 09:22; Start 07/06/17 at 08:00 Non-Formulary Medication (Umeclidinium Brm/Vilanterol Tr (Anoro Ellipta 62.5-25 Mcg Inh)) 1 puff DAILY IH ; Start 07/06/17 at 09:00; Status UNV Citalopram Hydrobromide (CeleXA) 10 mg DAILY PO Last administered on 07/12/17 09:23; Start 07/06/17 at 09:00 Pneumococcal Polyvalent Vaccine (Pneumovax 23) 0.5 ml ONCE ONCE VAX IM Last administered on 07/06/17at 10:40; Start 07/06/17 at 09:00; Stop 07/06/17 at 09:01 ; Status DC Nystatin (Nystop) 1 rosey BID TP Last administered on 07/12/17at 20:21; Start at 09:00 Divalproex Sodium (Depakote Sprinkles) 500 mg TID PO Last administered on at 12:32; Start 07/07/17 at 21:00; Stop 07/10/17 at 18:32; Status DC Trazodone HCl (Desyrel) 100 mg QHS PO Last administered on 07/12/17at 20:20; Start 07/07/17 at 21:00 Trazodone HCl (Desyrel) 100 mg PRN QHS PRN PO prn insomnia; Start 07/07/17 at 21:00 Olanzapine (ZyPREXA ZYDIS) 5 mg PRN Q2HR PRN PO ANXIETY / AGITATION Last administered on 07/08/17at 11:32; Start 07/08/17 at 11:00 Divalproex Sodium (Depakote Sprinkles) 625 mg TID PO Last administered on at 20:21; Start 07/10/17 at 21:00 Quetiapine Fumarate (SEROquel) 12.5 mg TID@0900,1300,1700 PO Last administered on 07/12/17at 17:23; Start 07/11/17 at 09:00; Stop 07/12/17 at 18:28; Status DC Quetiapine Fumarate (SEROquel) 25 mg TID@0900,1300,1700 PO ; Start 07/13/17 at 09:00 Active Scripts Active Reported Depakote Sprinkle (Divalproex Sodium) 125 Mg Cap.sprink 500 Mg PO HS Duoneb 0.5-3(2.5) Mg/3 Ml (Albuterol/Ipratropium) 3 Ml Ampul.neb 3 Ml NEB PRN Q4HRS PRN Eucerin Creme (Mineral Oil/Petrolatum,White) 120 Gm Cream..g. 1 Rosey TP PRN TID PRN Tamsulosin Hcl 0.4 Mg Cap.er.24h 0.4 Mg PO HS Potassium Chloride 10 Meq Tablet.er 10 Meq PO DAILY Novolog Flexpen (Insulin Aspart) 100 Unit/1 Ml Insuln.pen 18 Units SQ TIDBFRMEAL Analgesic Bradley (Methyl Salicylate/Menthol) 28 Gm Oint...g. 1 Rosey TP TID Mucinex (Guaifenesin) 600 Mg Tablet.er 600 Mg PO BID Metformin Hcl 1,000 Mg Tablet 1,000 Mg PO BIDWMEALS Namenda (Memantine Hcl) 10 Mg Tablet 10 Mg PO BID Loratadine 10 Mg Tablet 10 Mg PO DAILY Lisinopril 5 Mg Tablet 5 Mg PO DAILY Duoneb 0.5-3(2.5) Mg/3 Ml (Albuterol/Ipratropium) 3 Ml Ampul.neb 3 Ml NEB Q4HRS Hydrocodone-Apap 5-325 (Hydrocodone Bit/Acetaminophen) 1 Each Tablet 1 Tab PO Q6HRS PRN Furosemide 20 Mg Tablet 20 Mg PO DAILY Finasteride 5 Mg Tablet 5 Mg PO DAILY EXELON 9.5mg/24hr (Rivastigmine) 1 Each Patch.td24 1 Patch TD DAILY Escitalopram Oxalate 5 Mg Tablet 5 Mg PO DAILY Depakote Sprinkle (Divalproex Sodium) 125 Mg Cap.sprink 250 Mg PO BID Clopidogrel (Clopidogrel Bisulfate) 75 Mg Tablet 75 Mg PO DAILY Carvedilol 3.125 Mg Tablet 3.125 Mg PO BIDWMEALS Atorvastatin Calcium 20 Mg Tablet 20 Mg PO QHS Anoro Ellipta 62.5-25 Mcg Inh (Umeclidinium Brm/Vilanterol Tr) 1 Each Disk.w.dev 1 Puff IH DAILY Acetaminophen 500 Mg Tablet 500 Mg PO BID Gabapentin 300 Mg Capsule 300 Mg PO QID Aspirin 81 Mg Tab.chew 81 Mg PO DAILY Lantus Solostar (Insulin Glargine,Hum.rec.anlog) 100 Unit/1 Ml Insuln.pen 70 Unit SQ QHS I have reviewed the current psychotropics carefully including drug interactions. Risk benefit ratio favors no change other than as noted in my dictated progress note. Diagnosis: Problems: (1) Paranoid behavior (2) Alcohol-induced persisting dementia (3) Anxiety disorder (4) Impulse control disorder (5) Alcoholic psychosis (6) Dementia, vascular, with delusions SAMMY QUICK MD Jul 12, 2017 20:54
[2017-07-13] MEDS: IPRATRPIUM/ALBUTEROL 0.5/2.5MG 3 ML NEBU. NEB SCH ×7 (04:00→23:50)
[2017-07-13 05:51] VITALS: BP 126/55
[2017-07-13 08:08] LABS: ALBUMIN/GLOBULIN RATIO 0.7 (1.0-1.7); ALK PHOS 65 U/L (46-116); ALT (SGPT) 25 U/L (16-63); ANION GAP 8 (6-14); AST (SGOT) 20 U/L (15-37); BLOOD UREA NITROGEN 24 mg/dL (8-26); BUN/CREATININE RATIO 22 (6-20); CALCIUM 9.5 mg/dL (8.5-10.1); CARBON DIOXIDE 28 mmol/L (21-32); CHLORIDE 106 mmol/L (98-107); CREATININE 1.1 mg/dL (0.7-1.3); GFR 64.9; GLUCOSE 110 mg/dL (70-99); POTASSIUM 4.5 mmol/L (3.5-5.1); SODIUM 142 mmol/L (136-145); TOTAL BILIRUBIN 0.2 mg/dL (0.2-1.0); TOTAL PROTEIN 7.1 g/dL (6.4-8.2)
[2017-07-13 08:12] LABS: BASO % 1 % (0-3); EOS # 0.3 x10^3/uL (0.0-0.7); EOS % 3 % (0-3); HEMATOCRIT 38.9 % (39.0-53.0); HEMOGLOBIN 13.1 g/dL (13.0-17.5); LYMPH # 3.5 x10^3/uL (1.0-4.8); LYMPH % 37 % (24-48); MEAN CORPUSCULAR HEMOGLOBIN 31 pg (25-35); MEAN CORPUSCULAR HGB CONC 34 g/dL (31-37); MEAN CORPUSCULAR VOLUME 91 fL (79-100); MONO # 0.8 x10^3/uL (0.0-1.1); MONO % 8 % (0-9); NEUT # 4.8 x10^3uL (1.8-7.7); NEUT % 51 % (31-73); PLATELET COUNT 173 x10^3/uL (140-400); RED BLOOD COUNT 4.29 x10^6/uL (4.30-5.70); RED CELL DISTRIBUTION WIDTH 15.2 % (11.5-14.5); WHITE BLOOD COUNT 9.3 x10^3/uL (4.0-11.0)
[2017-07-13 08:15] LABS: VAL ACID 35 mcg/mL (50-100)
[2017-07-13] MEDS: LISINOPRIL 5 MG TABLET. PO SCH (08:31)
[2017-07-13] MEDS: FINASTERIDE 5 MG TABLET PO SCH (08:32)
[2017-07-13] MEDS: MEMANTINE 10 MG TABLET. PO SCH ×2 (08:32→21:18)
[2017-07-13] MEDS: CITALOPRAM 10 MG TABLET. PO SCH (08:32)
[2017-07-13] MEDS: ASPIRIN 81 MG TAB.CHEW PO SCH (08:32)
[2017-07-13] MEDS: FUROSEMIDE 20 MG TABLET PO SCH (08:32)
[2017-07-13] MEDS: CLOPIDOGREL BISULFATE 75 MG TABLET PO SCH (08:32)
[2017-07-13] MEDS: ACETAMINOPHEN 500 MG TABLET PO SCH ×2 (08:32→21:17)
[2017-07-13] MEDS: CARVEDILOL 3.125 MG TABLET PO SCH ×2 (08:32→17:29)
[2017-07-13] MEDS: POTASSIUM CHLORIDE 10 MEQ TABLET.ER. PO SCH (08:32)
[2017-07-13] MEDS: GABAPENTIN 300 MG CAPSULE. PO SCH ×4 (08:32→21:17)
[2017-07-13] MEDS: CETIRIZINE HCL 10 MG TABLET PO SCH (08:32)
[2017-07-13] MEDS: metFORMIN 500 MG TABLET PO SCH ×2 (08:33→17:29)
[2017-07-13] MEDS: DIVALPROEX 125 MG CAP.SPRINK PO SCH ×3 (08:33→21:17)
[2017-07-13] MEDS: RIVASTIGMINE 9.5MG PATCH. TD SCH (08:33)
[2017-07-13] MEDS: NICOTINE 21MG PATCH. TD SCH (08:33)
[2017-07-13] MEDS: NYSTATIN TOPICAL POWDER 15GM BOTTLE. TP SCH ×2 (08:34→21:19)
[2017-07-13] MEDS: METHYL SALICYLATE/MENTHOL TOPICAL OINTMENT 29GM TUBE. TP SCH ×3 (08:35→21:19)
[2017-07-13] MEDS: QUEtiapine 25 MG TABLET. PO SCH ×3 (08:35→17:29)
[2017-07-13] MEDS: INSULIN ASPART 300 UNITS/3 ML INSULN.PEN SQ SCH ×3 (08:36→17:31)
[2017-07-13 16:01] VITALS: BP 113/60
[2017-07-13] MEDS: MAGNESIUM HYDROXIDE 2,400 MG/30 ML ORAL.SUSP. PO PRN (17:35)
--- NOTE | 2017-07-13 20:56 | PDOC ---
Exam Note: Rober Note: Please also refer to the separate dictated note~for this date of service dictated separately.~Patient seen individually. Discussed the patient with Nursing staff reviewed the chart.~Reviewed interim history and current functioning. Reviewed vital signs,~Labs/ Radiology~and current medications noted below. Continue current treatment with the changes noted in the dictated addendum note Assessment: Vital Signs: Vital Signs Date Time Temp Pulse Resp B/P (MAP) Pulse Ox O2 Delivery O2 Flow Rate FiO2 07/13/17 17:29 87 113/60 07/13/17 16:01 98.0 20 94 07/13/17 15:49 Room Air 07/10/17 06:12 2.0 I&O Intake and Output 07/13/17 07:00 Intake Total 1360 ml Balance 1360 ml Intake Oral 1360 ml # Voids 1 Labs: Laboratory Tests Test 07/13/17 07:22 07/13/17 07:34 07/13/17 11:22 07/13/17 17:06 White Blood Count 9.3 x10^3/uL (4.0-11.0) Red Blood Count 4.29 x10^6/uL (4.30-5.70) L Hemoglobin 13.1 g/dL (13.0-17.5) Hematocrit 38.9 % (39.0-53.0) L Mean Corpuscular Volume 91 fL (79-100) Mean Corpuscular Hemoglobin 31 pg (25-35) Mean Corpuscular Hemoglobin Concent 34 g/dL (31-37) Red Cell Distribution Width 15.2 % (11.5-14.5) H Platelet Count 173 x10^3/uL (140-400) Neutrophils (%) (Auto) 51 % (31-73) Lymphocytes (%) (Auto) 37 % (24-48) Monocytes (%) (Auto) 8 % (0-9) Eosinophils (%) (Auto) 3 % (0-3) Basophils (%) (Auto) 1 % (0-3) Neutrophils # (Auto) 4.8 x10^3uL (1.8-7.7) Lymphocytes # (Auto) 3.5 x10^3/uL (1.0-4.8) Monocytes # (Auto) 0.8 x10^3/uL (0.0-1.1) Eosinophils # (Auto) 0.3 x10^3/uL (0.0-0.7) Basophils # (Auto) 0.0 x10^3/uL (0.0-0.2) Sodium Level 142 mmol/L (136-145) Potassium Level 4.5 mmol/L (3.5-5.1) Chloride Level 106 mmol/L (98-107) Carbon Dioxide Level 28 mmol/L (21-32) Anion Gap 8 (6-14) Blood Urea Nitrogen 24 mg/dL (8-26) Creatinine 1.1 mg/dL (0.7-1.3) Estimated GFR (Cockcroft-Gault) 64.9 BUN/Creatinine Ratio 22 (6-20) H Glucose Level 110 mg/dL (70-99) H Calcium Level 9.5 mg/dL (8.5-10.1) Total Bilirubin 0.2 mg/dL (0.2-1.0) Aspartate Amino Transferase (AST) 20 U/L (15-37) Alanine Aminotransferase (ALT) 25 U/L (16-63) Alkaline Phosphatase 65 U/L (46-116) Total Protein 7.1 g/dL (6.4-8.2) Albumin 3.0 g/dL (3.4-5.0) L Albumin/Globulin Ratio 0.7 (1.0-1.7) L Valproic Acid Level 35 mcg/mL (50-100) L Valproic Acid Last Dose Date 07/12/17 Valproic Acid Last Dose Time 2100 Glucose (Fingerstick) 101 mg/dL (70-99) H 89 mg/dL (70-99) 160 mg/dL (70-99) H Test 07/13/17 19:04 Glucose (Fingerstick) 152 mg/dL (70-99) H Current Medications: Meds: Current Medications Acetaminophen (Tylenol) 650 mg PRN Q6HRS PRN PO PAIN / TEMP Last administered on 07/10/17at 17:52; Start 07/05/17 at 22:45 Multi-Ingredient Ointment (Analgesic [place]) 1 rosey PRN QID PRN TP MUSCLE PAIN; Start 07/05/17 at 22:45 Al Hydroxide/Mg Hydroxide (Mylanta Plus Xs) 15 ml PRN AFTMEALHC PRN PO DYSPEPSIA; Start 07/05/17 at 22:45 Magnesium Hydroxide (Milk Of Magnesia) 2,400 mg PRN QHS PRN PO CONSTIPATION Last administered on 07/13/17 17:35; Start 07/05/17 at 22:45 Nicotine (Nicoderm Cq 21mg) 1 patch DAILY TD Last administered on 07/13/17 08: 33; Start 07/06/17 at 09:00 Divalproex Sodium (Depakote Sprinkles) 250 mg BID94 PO Last administered on 16:36; Start 07/06/17 at 09:00; Stop 07/07/17 at 18:23; Status DC Divalproex Sodium (Depakote Sprinkles) 500 mg HS PO Last administered on 21:25; Start 07/06/17 at 21:00; Stop 07/07/17 at 18:23; Status DC Memantine (Namenda) 10 mg BID PO Last administered on 07/13/17 08:32; Start at 09:00 Rivastigmine (Exelon) 1 patch DAILY TD Last administered on 07/13/17 08:33; Start 07/06/17 at 09:00 Acetaminophen (Tylenol) 500 mg BID PO Last administered on 07/13/17 08:32; Start 07/06/17 at 09:00 Aspirin (Children'S Aspirin) 81 mg DAILY PO Last administered on 07/13/17 08: 32; Start 07/06/17 at 09:00 Atorvastatin Calcium (Lipitor) 20 mg QHS PO Last administered on 07/12/17 20: 20; Start 07/06/17 at 21:00 Carvedilol (Coreg) 3.125 mg BIDWMEALS PO Last administered on 07/13/17 17:29; Start 07/06/17 at 08:00 Clopidogrel Bisulfate (Plavix) 75 mg DAILY PO Last administered on 07/13/17 08 :32; Start 07/06/17 at 09:00 Finasteride (Proscar) 5 mg DAILY PO Last administered on 07/13/17 08:32; Start 07/06/17 at 09:00 Furosemide (Lasix) 20 mg DAILY PO Last administered on 07/13/17 08:32; Start 07/06/17 at 09:00 Gabapentin (Neurontin) 300 mg QID PO Last administered on 07/13/17 17:29; Start 07/06/17 at 09:00 Guaifenesin (Mucinex Er) 600 mg BID PO Last administered on 07/13/17 08:32; Start 07/06/17 at 09:00 Acetaminophen/ Hydrocodone Bitart (Lortab 5/325) 1 tab PRN Q6HRS PRN PO PAIN Last administered on 07/10/17 03:09; Start 07/06/17 at 02:00 Insulin Aspart (NovoLOG) 18 units TIDBFRMEAL SQ Last administered on 07/13/17 17:31; Start 07/06/17 at 07:30 Albuterol Sulfate (Ventolin) 2.5 mg PRN Q4HRS PRN NEB SHORTNESS OF BREATH Last administered on 07/08/17 11:27; Start 07/06/17 at 02:15 Albuterol/ Ipratropium (Duoneb) 3 ml Q4HRS NEB Last administered on 07/13/17 15:47; Start 07/06/17 at 04:00 Lisinopril (Prinivil) 5 mg DAILY PO Last administered on 07/13/17 08:31; Start 07/06/17 at 09:00 Multi-Ingredient Ointment (Analgesic [place]) 1 rosey TID TP Last administered on 13:55; Start 07/06/17 at 09:00 Multi-Ingred Cream/Lotion/Oil/ Oint (Hydrocerin) 1 rosey PRN TID PRN TP DRY SKIN / SCALING; Start 07/06/17 at 02:00 Tamsulosin HCl (Flomax) 0.4 mg HS PO Last administered on 07/12/17 20:21; Start 07/06/17 at 21:00 Insulin Detemir (Levemir) 70 units QHS SQ Last administered on 07/12/17 20:22 ; Start 07/06/17 at 21:00 Cetirizine HCl (ZyrTEC) 10 mg DAILY PO Last administered on 07/13/17 08:32; Start 07/06/17 at 09:00 Metformin HCl (Glucophage) 1,000 mg BIDWMEALS PO Last administered on 17:29; Start 07/06/17 at 08:00 Potassium Chloride (Klor-Con) 10 meq DAILYWBKFT PO Last administered on at 08:32; Start 07/06/17 at 08:00 Non-Formulary Medication (Umeclidinium Brm/Vilanterol Tr (Anoro Ellipta 62.5-25 Mcg Inh)) 1 puff DAILY IH ; Start 07/06/17 at 09:00; Status UNV Citalopram Hydrobromide (CeleXA) 10 mg DAILY PO Last administered on 07/13/17 08:32; Start 07/06/17 at 09:00 Pneumococcal Polyvalent Vaccine (Pneumovax 23) 0.5 ml ONCE ONCE VAX IM Last administered on 07/06/17at 10:40; Start 07/06/17 at 09:00; Stop 07/06/17 at 09:01 ; Status DC Nystatin (Nystop) 1 rosey BID TP Last administered on 07/13/17at 08:34; Start at 09:00 Divalproex Sodium (Depakote Sprinkles) 500 mg TID PO Last administered on 12:32; Start 07/07/17 at 21:00; Stop 07/10/17 at 18:32; Status DC Trazodone HCl (Desyrel) 100 mg QHS PO Last administered on 07/12/17 20:20; Start 07/07/17 at 21:00 Trazodone HCl (Desyrel) 100 mg PRN QHS PRN PO prn insomnia; Start 07/07/17 at 21:00 Olanzapine (ZyPREXA ZYDIS) 5 mg PRN Q2HR PRN PO ANXIETY / AGITATION Last administered on 07/08/17at 11:32; Start 07/08/17 at 11:00 Divalproex Sodium (Depakote Sprinkles) 625 mg TID PO Last administered on at 08:33; Start 07/10/17 at 21:00; Stop 07/13/17 at 10:55; Status DC Quetiapine Fumarate (SEROquel) 12.5 mg TID@0900,1300,1700 PO Last administered on 3/21/18at 17:23; Start 07/11/17 at 09:00; Stop 07/12/17 at 18:28; Status DC Quetiapine Fumarate (SEROquel) 25 mg TID@0900,1300,1700 PO Last administered on 07/13/17at 17:29; Start 07/13/17 at 09:00 Divalproex Sodium (Depakote Sprinkles) 750 mg TID PO Last administered on at 13:54; Start 07/13/17 at 14:00 Active Scripts Active Reported Depakote Sprinkle (Divalproex Sodium) 125 Mg Cap.sprink 500 Mg PO HS Duoneb 0.5-3(2.5) Mg/3 Ml (Albuterol/Ipratropium) 3 Ml Ampul.neb 3 Ml NEB PRN Q4HRS PRN Eucerin Creme (Mineral Oil/Petrolatum,White) 120 Gm Cream..g. 1 Rosey TP PRN TID PRN Tamsulosin Hcl 0.4 Mg Cap.er.24h 0.4 Mg PO HS Potassium Chloride 10 Meq Tablet.er 10 Meq PO DAILY Novolog Flexpen (Insulin Aspart) 100 Unit/1 Ml Insuln.pen 18 Units SQ TIDBFRMEAL Analgesic [place] (Methyl Salicylate/Menthol) 28 Gm Oint...g. 1 Rosey TP TID Mucinex (Guaifenesin) 600 Mg Tablet.er 600 Mg PO BID Metformin Hcl 1,000 Mg Tablet 1,000 Mg PO BIDWMEALS Namenda (Memantine Hcl) 10 Mg Tablet 10 Mg PO BID Loratadine 10 Mg Tablet 10 Mg PO DAILY Lisinopril 5 Mg Tablet 5 Mg PO DAILY Duoneb 0.5-3(2.5) Mg/3 Ml (Albuterol/Ipratropium) 3 Ml Ampul.neb 3 Ml NEB Q4HRS Hydrocodone-Apap 5-325 (Hydrocodone Bit/Acetaminophen) 1 Each Tablet 1 Tab PO Q6HRS PRN Furosemide 20 Mg Tablet 20 Mg PO DAILY Finasteride 5 Mg Tablet 5 Mg PO DAILY EXELON 9.5mg/24hr (Rivastigmine) 1 Each Patch.td24 1 Patch TD DAILY Escitalopram Oxalate 5 Mg Tablet 5 Mg PO DAILY Depakote Sprinkle (Divalproex Sodium) 125 Mg Cap.sprink 250 Mg PO BID Clopidogrel (Clopidogrel Bisulfate) 75 Mg Tablet 75 Mg PO DAILY Carvedilol 3.125 Mg Tablet 3.125 Mg PO BIDWMEALS Atorvastatin Calcium 20 Mg Tablet 20 Mg PO QHS Anoro Ellipta 62.5-25 Mcg Inh (Umeclidinium Brm/Vilanterol Tr) 1 Each Disk.w.dev 1 Puff IH DAILY Acetaminophen 500 Mg Tablet 500 Mg PO BID Gabapentin 300 Mg Capsule 300 Mg PO QID Aspirin 81 Mg Tab.chew 81 Mg PO DAILY Lantus Solostar (Insulin Glargine,Hum.rec.anlog) 100 Unit/1 Ml Insuln.pen 70 Unit SQ QHS I have reviewed the current psychotropics carefully including drug interactions. Risk benefit ratio favors no change other than as noted in my dictated progress note. Diagnosis: Problems: (1) Paranoid behavior (2) Alcohol-induced persisting dementia (3) Anxiety disorder (4) Impulse control disorder (5) Alcoholic psychosis (6) Dementia, vascular, with delusions SAMMY QUICK MD Jul 13, 2017 20:56
[2017-07-13] MEDS: ATORVASTATIN CALCIUM 20 MG TABLET PO SCH (21:17)
[2017-07-13] MEDS: traZODone 100 MG TABLET. PO SCH (21:17)
[2017-07-13] MEDS: TAMSULOSIN 0.4 MG CAP.ER.24H. PO SCH (21:17)
[2017-07-13] MEDS: INSULIN DETEMIR 300 UNITS/3 ML INSULN.PEN. SQ SCH (21:21)
[2017-07-14 05:51] VITALS: BP 101/52
[2017-07-14] MEDS: IPRATRPIUM/ALBUTEROL 0.5/2.5MG 3 ML NEBU. NEB SCH ×5 (06:04→20:02)
[2017-07-14] MEDS: CARVEDILOL 3.125 MG TABLET PO SCH ×2 (08:00→17:06)
[2017-07-14] MEDS: LISINOPRIL 5 MG TABLET. PO SCH (09:00)
[2017-07-14] MEDS: MEMANTINE 10 MG TABLET. PO SCH ×2 (09:24→20:57)
[2017-07-14] MEDS: ASPIRIN 81 MG TAB.CHEW PO SCH (09:24)
[2017-07-14] MEDS: metFORMIN 500 MG TABLET PO SCH ×2 (09:24→17:06)
[2017-07-14] MEDS: CLOPIDOGREL BISULFATE 75 MG TABLET PO SCH (09:24)
[2017-07-14] MEDS: FUROSEMIDE 20 MG TABLET PO SCH (09:24)
[2017-07-14] MEDS: GABAPENTIN 300 MG CAPSULE. PO SCH ×4 (09:25→20:56)
[2017-07-14] MEDS: ACETAMINOPHEN 500 MG TABLET PO SCH ×2 (09:25→20:57)
[2017-07-14] MEDS: FINASTERIDE 5 MG TABLET PO SCH (09:25)
[2017-07-14] MEDS: DIVALPROEX 125 MG CAP.SPRINK PO SCH ×3 (09:25→20:57)
[2017-07-14] MEDS: POTASSIUM CHLORIDE 10 MEQ TABLET.ER. PO SCH (09:25)
[2017-07-14] MEDS: CITALOPRAM 10 MG TABLET. PO SCH (09:25)
[2017-07-14] MEDS: CETIRIZINE HCL 10 MG TABLET PO SCH (09:25)
[2017-07-14] MEDS: QUEtiapine 25 MG TABLET. PO SCH ×3 (09:25→17:06)
[2017-07-14] MEDS: RIVASTIGMINE 9.5MG PATCH. TD SCH (09:26)
[2017-07-14] MEDS: NICOTINE 21MG PATCH. TD SCH (09:27)
[2017-07-14] MEDS: METHYL SALICYLATE/MENTHOL TOPICAL OINTMENT 29GM TUBE. TP SCH ×3 (09:28→21:11)
[2017-07-14] MEDS: NYSTATIN TOPICAL POWDER 15GM BOTTLE. TP SCH ×2 (09:28→21:11)
[2017-07-14] MEDS: INSULIN ASPART 300 UNITS/3 ML INSULN.PEN SQ SCH ×3 (09:28→17:08)
--- NOTE | 2017-07-14 09:39 | PN ---
DATE: 07/12/2017 This late entry 07/12/2017 covers elements not covered in my initial note of 07/12/2017. I met with the patient evening of 07/12/2017. SUBJECTIVE: The patient had a very difficult day on 07/12/2017. He has been irritable. In the morning, he threw his wet brief on the floor, had a fit per nursing report demanding the nursing staff clean it up, yelling, cursing, urinated on the floor in the morning 3 times later in the day. Minimizes, denies any responsibility for his mood lability. REVIEW OF SYSTEMS: Ambulation impaired with walker. No CV, , pulmonary, eye, ENT system symptoms on review. Reliability poor. MENTAL STATUS EXAM: Oriented to himself and situation. Speech coherent, rapid, at times loud. Abstraction fair, computation impaired, language function intact. Mood and affect remains quite labile. LABORATORY DATA: Reviewed. 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 PLAN: Increase the Seroquel from 12.5 mg 3 times a day to 25 mg 3 times a day. Check a valproic acid level in the morning of 07/13/2017 and then adjust Depakote to reach a therapeutic level, continue rest, unchanged per the initial note. MAN Francoise QUICK MD DR: REID/elvia JOB#: [id number] / [id number]
--- NOTE | 2017-07-14 13:55 | PN ---
DATE: 07/13/2017 This is a late entry 07/13/2017 covers elements not covered in my initial note 07/13/2017. Met with the patient at length evening of 07/13/2017, and staffed at a treatment team meeting morning of 07/13/2017 at length with the patient's daughter, Leatha, attending. Reviewed his history at length. Daughter feels his episodes of urinating in the hallway are not necessarily volitional and he has done that again x 3 on the day before, less irritable at times. His daughter would like for him to see a urologist post discharge and perhaps this is appropriate. Also, daughter is concerned about him not using the BiPAP and she will try and deliver this from his prior facility and I will defer to Dr. Farmer. He does have a history of sleep apnea, status post cerebrovascular accident and status post DC. Lengthy discussion about his progress and he seems to be making some slight progress with his mood lability and obsessiveness, anger, irritability. REVIEW OF SYSTEMS: Ambulation impaired with walker. No CV, , pulmonary, eye system symptoms on review. MENTAL STATUS EXAM: Oriented to himself and situation. Speech coherent, less rapid, loud. Abstraction fair, computation impaired, language function intact, attention span short. Mood and affect still labile, anxious, obsessive, but lesser than before. LABORATORY DATA: Reviewed. IMPRESSION: Bipolar 1 disorder, mixed with psychotic features; major neurocognitive disorder versus mild cognitive impairment secondary to alcohol, vascular with delusion, behavioral disturbance; anxiety disorder, unspecified with obsessive-compulsive disorder symptoms. PLAN: Valproic acid level is 35 on 07/13/2017. We will increase the Depakote Sprinkles from 625 mg 3 times a day to 750 mg 3 times a day. Check CBC, CMP, valproic acid level in 3 days. Continue rest of the psychotropics unchanged. SAMMY QUICK MD DR: REID/elvia JOB#: [id number] / [id number]
[2017-07-14 16:10] VITALS: BP 140/72
[2017-07-14] MEDS: ATORVASTATIN CALCIUM 20 MG TABLET PO SCH (20:57)
[2017-07-14] MEDS: traZODone 100 MG TABLET. PO SCH (20:57)
[2017-07-14] MEDS: TAMSULOSIN 0.4 MG CAP.ER.24H. PO SCH (20:57)
--- NOTE | 2017-07-14 20:58 | PDOC ---
Exam Note: Rober Note: Please also refer to the separate dictated note~for this date of service dictated separately.~Patient seen individually. Discussed the patient with Nursing staff reviewed the chart.~Reviewed interim history and current functioning. Reviewed vital signs,~Labs/ Radiology~and current medications noted below. Continue current treatment with the changes noted in the dictated addendum note Assessment: Vital Signs: Vital Signs Date Time Temp Pulse Resp B/P (MAP) Pulse Ox O2 Delivery O2 Flow Rate FiO2 07/14/17 20:04 95 Room Air 07/14/17 17:06 87 140/72 07/14/17 16:10 97.5 20 07/10/17 06:12 2.0 I&O Intake and Output 07/14/17 07:00 Intake Total 1320 ml Balance 1320 ml Intake Oral 1320 ml # Voids 1 # Bowel Movements 1 Labs: Laboratory Tests Test 07/14/17 07:30 07/14/17 11:30 07/14/17 16:30 07/14/17 19:15 Glucose (Fingerstick) 112 mg/dL (70-99) H 119 mg/dL (70-99) H 123 mg/dL (70-99) H 93 mg/dL (70-99) Current Medications: Meds: Current Medications Acetaminophen (Tylenol) 650 mg PRN Q6HRS PRN PO PAIN / TEMP Last administered on 07/10/17at 17:52; Start 07/05/17 at 22:45 Multi-Ingredient Ointment (Analgesic [place]) 1 rosey PRN QID PRN TP MUSCLE PAIN; Start 07/05/17 at 22:45 Al Hydroxide/Mg Hydroxide (Mylanta Plus Xs) 15 ml PRN AFTMEALHC PRN PO DYSPEPSIA; Start 07/05/17 at 22:45 Magnesium Hydroxide (Milk Of Magnesia) 2,400 mg PRN QHS PRN PO CONSTIPATION Last administered on 07/13/17at 17:35; Start 07/05/17 at 22:45 Nicotine (Nicoderm Cq 21mg) 1 patch DAILY TD Last administered on 07/14/17 09: 27; Start 07/06/17 at 09:00 Divalproex Sodium (Depakote Sprinkles) 250 mg BID94 PO Last administered on at 16:36; Start 07/06/17 at 09:00; Stop 07/07/17 at 18:23; Status DC Divalproex Sodium (Depakote Sprinkles) 500 mg HS PO Last administered on 21:25; Start 07/06/17 at 21:00; Stop 07/07/17 at 18:23; Status DC Memantine (Namenda) 10 mg BID PO Last administered on 07/14/17 09:24; Start at 09:00 Rivastigmine (Exelon) 1 patch DAILY TD Last administered on 07/14/17 09:26; Start 07/06/17 at 09:00 Acetaminophen (Tylenol) 500 mg BID PO Last administered on 07/14/17 09:25; Start 07/06/17 at 09:00 Aspirin (Children'S Aspirin) 81 mg DAILY PO Last administered on 07/14/17 09: 24; Start 07/06/17 at 09:00 Atorvastatin Calcium (Lipitor) 20 mg QHS PO Last administered on 07/13/17 21: 17; Start 07/06/17 at 21:00 Carvedilol (Coreg) 3.125 mg BIDWMEALS PO Last administered on 07/14/17 17:06; Start 07/06/17 at 08:00 Clopidogrel Bisulfate (Plavix) 75 mg DAILY PO Last administered on 07/14/17 09 :24; Start 07/06/17 at 09:00 Finasteride (Proscar) 5 mg DAILY PO Last administered on 07/14/17 09:25; Start 07/06/17 at 09:00 Furosemide (Lasix) 20 mg DAILY PO Last administered on 07/14/17 09:24; Start 07/06/17 at 09:00 Gabapentin (Neurontin) 300 mg QID PO Last administered on 07/14/17 17:06; Start 07/06/17 at 09:00 Guaifenesin (Mucinex Er) 600 mg BID PO Last administered on 07/14/17 09:25; Start 07/06/17 at 09:00 Acetaminophen/ Hydrocodone Bitart (Lortab 5/325) 1 tab PRN Q6HRS PRN PO PAIN Last administered on 07/10/17 03:09; Start 07/06/17 at 02:00 Insulin Aspart (NovoLOG) 18 units TIDBFRMEAL SQ Last administered on 07/14/17 17:08; Start 07/06/17 at 07:30 Albuterol Sulfate (Ventolin) 2.5 mg PRN Q4HRS PRN NEB SHORTNESS OF BREATH Last administered on 07/08/17 11:27; Start 07/06/17 at 02:15 Albuterol/ Ipratropium (Duoneb) 3 ml Q4HRS NEB Last administered on 07/14/17 20:02; Start 07/06/17 at 04:00 Lisinopril (Prinivil) 5 mg DAILY PO Last administered on 07/13/17 08:31; Start 07/06/17 at 09:00 Multi-Ingredient Ointment (Analgesic [place]) 1 rosey TID TP Last administered on 14:00; Start 07/06/17 at 09:00 Multi-Ingred Cream/Lotion/Oil/ Oint (Hydrocerin) 1 rosey PRN TID PRN TP DRY SKIN / SCALING; Start 07/06/17 at 02:00 Tamsulosin HCl (Flomax) 0.4 mg HS PO Last administered on 07/13/17 21:17; Start 07/06/17 at 21:00 Insulin Detemir (Levemir) 70 units QHS SQ Last administered on 07/13/17 21:21 ; Start 07/06/17 at 21:00 Cetirizine HCl (ZyrTEC) 10 mg DAILY PO Last administered on 07/14/17 09:25; Start 07/06/17 at 09:00 Metformin HCl (Glucophage) 1,000 mg BIDWMEALS PO Last administered on 17:06; Start 07/06/17 at 08:00 Potassium Chloride (Klor-Con) 10 meq DAILYWBKFT PO Last administered on 09:25; Start 07/06/17 at 08:00 Non-Formulary Medication (Umeclidinium Brm/Vilanterol Tr (Anoro Ellipta 62.5-25 Mcg Inh)) 1 puff DAILY IH ; Start 07/06/17 at 09:00; Status UNV Citalopram Hydrobromide (CeleXA) 10 mg DAILY PO Last administered on 07/14/17 09:25; Start 07/06/17 at 09:00 Pneumococcal Polyvalent Vaccine (Pneumovax 23) 0.5 ml ONCE ONCE VAX IM Last administered on 07/06/17 10:40; Start 07/06/17 at 09:00; Stop 07/06/17 at 09:01 ; Status DC Nystatin (Nystop) 1 rosey BID TP Last administered on 07/14/17 09:28; Start at 09:00 Divalproex Sodium (Depakote Sprinkles) 500 mg TID PO Last administered on 12:32; Start 07/07/17 at 21:00; Stop 07/10/17 at 18:32; Status DC Trazodone HCl (Desyrel) 100 mg QHS PO Last administered on 07/13/17 21:17; Start 07/07/17 at 21:00 Trazodone HCl (Desyrel) 100 mg PRN QHS PRN PO prn insomnia; Start 07/07/17 at 21:00 Olanzapine (ZyPREXA ZYDIS) 5 mg PRN Q2HR PRN PO ANXIETY / AGITATION Last administered on 07/08/17at 11:32; Start 07/08/17 at 11:00 Divalproex Sodium (Depakote Sprinkles) 625 mg TID PO Last administered on at 08:33; Start 07/10/17 at 21:00; Stop 07/13/17 at 10:55; Status DC Quetiapine Fumarate (SEROquel) 12.5 mg TID@0900,1300,1700 PO Last administered on 07/12/17at 17:23; Start 07/11/17 at 09:00; Stop 07/12/17 at 18:28; Status DC Quetiapine Fumarate (SEROquel) 25 mg TID@0900,1300,1700 PO Last administered on 07/14/17 17:06; Start 07/13/17 at 09:00 Divalproex Sodium (Depakote Sprinkles) 750 mg TID PO Last administered on 14:45; Start 07/13/17 at 14:00 Active Scripts Active Reported Depakote Sprinkle (Divalproex Sodium) 125 Mg Cap.sprink 500 Mg PO HS Duoneb 0.5-3(2.5) Mg/3 Ml (Albuterol/Ipratropium) 3 Ml Ampul.neb 3 Ml NEB PRN Q4HRS PRN Eucerin Creme (Mineral Oil/Petrolatum,White) 120 Gm Cream..g. 1 Rosey TP PRN TID PRN Tamsulosin Hcl 0.4 Mg Cap.er.24h 0.4 Mg PO HS Potassium Chloride 10 Meq Tablet.er 10 Meq PO DAILY Novolog Flexpen (Insulin Aspart) 100 Unit/1 Ml Insuln.pen 18 Units SQ TIDBFRMEAL Analgesic [place] (Methyl Salicylate/Menthol) 28 Gm Oint...g. 1 Rosey TP TID Mucinex (Guaifenesin) 600 Mg Tablet.er 600 Mg PO BID Metformin Hcl 1,000 Mg Tablet 1,000 Mg PO BIDWMEALS Namenda (Memantine Hcl) 10 Mg Tablet 10 Mg PO BID Loratadine 10 Mg Tablet 10 Mg PO DAILY Lisinopril 5 Mg Tablet 5 Mg PO DAILY Duoneb 0.5-3(2.5) Mg/3 Ml (Albuterol/Ipratropium) 3 Ml Ampul.neb 3 Ml NEB Q4HRS Hydrocodone-Apap 5-325 (Hydrocodone Bit/Acetaminophen) 1 Each Tablet 1 Tab PO Q6HRS PRN Furosemide 20 Mg Tablet 20 Mg PO DAILY Finasteride 5 Mg Tablet 5 Mg PO DAILY EXELON 9.5mg/24hr (Rivastigmine) 1 Each Patch.td24 1 Patch TD DAILY Escitalopram Oxalate 5 Mg Tablet 5 Mg PO DAILY Depakote Sprinkle (Divalproex Sodium) 125 Mg Cap.sprink 250 Mg PO BID Clopidogrel (Clopidogrel Bisulfate) 75 Mg Tablet 75 Mg PO DAILY Carvedilol 3.125 Mg Tablet 3.125 Mg PO BIDWMEALS Atorvastatin Calcium 20 Mg Tablet 20 Mg PO QHS Anoro Ellipta 62.5-25 Mcg Inh (Umeclidinium Brm/Vilanterol Tr) 1 Each Disk.w.dev 1 Puff IH DAILY Acetaminophen 500 Mg Tablet 500 Mg PO BID Gabapentin 300 Mg Capsule 300 Mg PO QID Aspirin 81 Mg Tab.chew 81 Mg PO DAILY Lantus Solostar (Insulin Glargine,Hum.rec.anlog) 100 Unit/1 Ml Insuln.pen 70 Unit SQ QHS I have reviewed the current psychotropics carefully including drug interactions. Risk benefit ratio favors no change other than as noted in my dictated progress note. Diagnosis: Problems: (1) Paranoid behavior (2) Alcohol-induced persisting dementia (3) Anxiety disorder (4) Impulse control disorder (5) Alcoholic psychosis (6) Dementia, vascular, with delusions SAMMY QUICK MD Jul 14, 2017 20:58
[2017-07-14] MEDS: INSULIN DETEMIR 300 UNITS/3 ML INSULN.PEN. SQ SCH (21:00)
[2017-07-15] MEDS: HYDROcodone/APAP 5/325MG 1 TAB TABLET PO PRN (03:10)
[2017-07-15] MEDS: IPRATRPIUM/ALBUTEROL 0.5/2.5MG 3 ML NEBU. NEB SCH ×6 (04:00→21:44)
[2017-07-15 05:47] VITALS: BP 102/45
[2017-07-15] MEDS: DIVALPROEX 125 MG CAP.SPRINK PO SCH ×3 (07:43→17:42)
[2017-07-15] MEDS: CLOPIDOGREL BISULFATE 75 MG TABLET PO SCH (07:43)
[2017-07-15] MEDS: metFORMIN 500 MG TABLET PO SCH ×2 (07:45→17:42)
[2017-07-15] MEDS: MEMANTINE 10 MG TABLET. PO SCH ×2 (07:45→17:43)
[2017-07-15] MEDS: CETIRIZINE HCL 10 MG TABLET PO SCH (07:45)
[2017-07-15] MEDS: QUEtiapine 25 MG TABLET. PO SCH ×3 (07:45→17:45)
[2017-07-15] MEDS: POTASSIUM CHLORIDE 10 MEQ TABLET.ER. PO SCH (07:45)
[2017-07-15] MEDS: ACETAMINOPHEN 500 MG TABLET PO SCH ×2 (07:45→17:42)
[2017-07-15] MEDS: ASPIRIN 81 MG TAB.CHEW PO SCH (07:46)
[2017-07-15] MEDS: RIVASTIGMINE 9.5MG PATCH. TD SCH (07:46)
[2017-07-15] MEDS: FINASTERIDE 5 MG TABLET PO SCH (07:46)
[2017-07-15] MEDS: CITALOPRAM 10 MG TABLET. PO SCH (07:46)
[2017-07-15] MEDS: GABAPENTIN 300 MG CAPSULE. PO SCH ×4 (07:46→20:06)
[2017-07-15] MEDS: NICOTINE 21MG PATCH. TD SCH (07:47)
[2017-07-15] MEDS: CARVEDILOL 3.125 MG TABLET PO SCH ×2 (08:07→17:42)
[2017-07-15] MEDS: FUROSEMIDE 20 MG TABLET PO SCH (08:07)
[2017-07-15] MEDS: LISINOPRIL 5 MG TABLET. PO SCH (08:08)
[2017-07-15] MEDS: NYSTATIN TOPICAL POWDER 15GM BOTTLE. TP SCH ×2 (08:09→17:49)
[2017-07-15] MEDS: METHYL SALICYLATE/MENTHOL TOPICAL OINTMENT 29GM TUBE. TP SCH ×3 (08:09→17:49)
[2017-07-15] MEDS: INSULIN ASPART 300 UNITS/3 ML INSULN.PEN SQ SCH ×3 (08:09→17:44)
[2017-07-15 16:02] VITALS: BP 117/57
[2017-07-15] MEDS: ATORVASTATIN CALCIUM 20 MG TABLET PO SCH (17:42)
[2017-07-15] MEDS: TAMSULOSIN 0.4 MG CAP.ER.24H. PO SCH (17:43)
[2017-07-15] MEDS: traZODone 100 MG TABLET. PO SCH (17:43)
[2017-07-15] MEDS: INSULIN DETEMIR 300 UNITS/3 ML INSULN.PEN. SQ SCH (17:45)
--- NOTE | 2017-07-15 17:48 | PN ---
DATE: 07/14/2017 This is a late entry, 07/14/2017, covers the elements not covered in my initial note, 07/14/2017. SUBJECTIVE: The patient is doing a little better, not urinating on the floor. We will check nocturnal desaturation studies since he does not have a CPAP. Appetite somewhat poor at times reasonable. REVIEW OF SYSTEMS: Ambulation impaired with walker. No CV, , pulmonary, eye, ENT system symptoms on review. MENTAL STATUS EXAM: Oriented to himself and situation. Speech coherent, abstraction fair, computation impaired, language function intact, attention span short. Mood and affect, intermittently somewhat grandiose. LABORATORY DATA: Reviewed. IMPRESSION: Unchanged from initial note. PLAN: Continue current psychotropics. Valproic acid level is 28. Adjust to reach a therapeutic level. Check CBC, CMP level in 3 days, increase of Depakote to 750 mg 3 times a day. MAN Francoise QUICK MD DR: REID/elvia JOB#: [id number] / [id number]
--- NOTE | 2017-07-15 22:00 | PDOC ---
Exam Note: Rober Note: Please also refer to the separate dictated note~for this date of service dictated separately.~Patient seen individually. Discussed the patient with Nursing staff reviewed the chart.~Reviewed interim history and current functioning. Reviewed vital signs,~Labs/ Radiology~and current medications noted below. Continue current treatment with the changes noted in the dictated addendum note Assessment: Vital Signs: Vital Signs Date Time Temp Pulse Resp B/P (MAP) Pulse Ox O2 Delivery O2 Flow Rate FiO2 07/15/17 21:28 97 Room Air 07/15/17 17:42 86 117/57 07/15/17 16:02 97.6 20 07/10/17 06:12 2.0 I&O Intake and Output 07/15/17 07:00 Intake Total 1200 ml Balance 1200 ml Intake Oral 1200 ml # Voids 1 Labs: Laboratory Tests Test 07/15/17 07:37 07/15/17 12:11 07/15/17 16:50 07/15/17 19:00 Glucose (Fingerstick) 101 mg/dL (70-99) H 78 mg/dL (70-99) 83 mg/dL (70-99) 109 mg/dL (70-99) H Current Medications: Meds: Current Medications Acetaminophen (Tylenol) 650 mg PRN Q6HRS PRN PO PAIN / TEMP Last administered on 07/10/17at 17:52; Start 07/05/17 at 22:45 Multi-Ingredient Ointment (Analgesic [place]) 1 rosey PRN QID PRN TP MUSCLE PAIN; Start 07/05/17 at 22:45 Al Hydroxide/Mg Hydroxide (Mylanta Plus Xs) 15 ml PRN AFTMEALHC PRN PO DYSPEPSIA; Start 07/05/17 at 22:45 Magnesium Hydroxide (Milk Of Magnesia) 2,400 mg PRN QHS PRN PO CONSTIPATION Last administered on 07/13/17at 17:35; Start 07/05/17 at 22:45 Nicotine (Nicoderm Cq 21mg) 1 patch DAILY TD Last administered on 07/15/17at 07: 47; Start 07/06/17 at 09:00 Divalproex Sodium (Depakote Sprinkles) 250 mg BID94 PO Last administered on at 16:36; Start 07/06/17 at 09:00; Stop 07/07/17 at 18:23; Status DC Divalproex Sodium (Depakote Sprinkles) 500 mg HS PO Last administered on 21:25; Start 07/06/17 at 21:00; Stop 07/07/17 at 18:23; Status DC Memantine (Namenda) 10 mg BID PO Last administered on 07/15/17 17:43; Start at 09:00 Rivastigmine (Exelon) 1 patch DAILY TD Last administered on 07/15/17 07:46; Start 07/06/17 at 09:00 Acetaminophen (Tylenol) 500 mg BID PO Last administered on 07/15/17 17:42; Start 07/06/17 at 09:00 Aspirin (Children'S Aspirin) 81 mg DAILY PO Last administered on 07/15/17 07: 46; Start 07/06/17 at 09:00 Atorvastatin Calcium (Lipitor) 20 mg QHS PO Last administered on 07/15/17 17: 42; Start 07/06/17 at 21:00 Carvedilol (Coreg) 3.125 mg BIDWMEALS PO Last administered on 07/15/17 17:42; Start 07/06/17 at 08:00 Clopidogrel Bisulfate (Plavix) 75 mg DAILY PO Last administered on 07/15/17 07 :43; Start 07/06/17 at 09:00 Finasteride (Proscar) 5 mg DAILY PO Last administered on 07/15/17 07:46; Start 07/06/17 at 09:00 Furosemide (Lasix) 20 mg DAILY PO Last administered on 07/15/17 08:07; Start 07/06/17 at 09:00 Gabapentin (Neurontin) 300 mg QID PO Last administered on 07/15/17 20:06; Start 07/06/17 at 09:00 Guaifenesin (Mucinex Er) 600 mg BID PO Last administered on 07/15/17 17:43; Start 07/06/17 at 09:00 Acetaminophen/ Hydrocodone Bitart (Lortab 5/325) 1 tab PRN Q6HRS PRN PO PAIN Last administered on 07/15/17 03:10; Start 07/06/17 at 02:00 Insulin Aspart (NovoLOG) 18 units TIDBFRMEAL SQ Last administered on 07/15/17 17:44; Start 07/06/17 at 07:30 Albuterol Sulfate (Ventolin) 2.5 mg PRN Q4HRS PRN NEB SHORTNESS OF BREATH Last administered on 07/08/17 11:27; Start 07/06/17 at 02:15 Albuterol/ Ipratropium (Duoneb) 3 ml Q4HRS NEB Last administered on 07/15/17 21:44; Start 07/06/17 at 04:00 Lisinopril (Prinivil) 5 mg DAILY PO Last administered on 07/15/17 08:08; Start 07/06/17 at 09:00 Multi-Ingredient Ointment (Analgesic [place]) 1 rosey TID TP Last administered on 21:11; Start 07/06/17 at 09:00 Multi-Ingred Cream/Lotion/Oil/ Oint (Hydrocerin) 1 rosey PRN TID PRN TP DRY SKIN / SCALING; Start 07/06/17 at 02:00 Tamsulosin HCl (Flomax) 0.4 mg HS PO Last administered on 07/15/17 17:43; Start 07/06/17 at 21:00 Insulin Detemir (Levemir) 70 units QHS SQ Last administered on 07/15/17 17:45 ; Start 07/06/17 at 21:00 Cetirizine HCl (ZyrTEC) 10 mg DAILY PO Last administered on 07/15/17 07:45; Start 07/06/17 at 09:00 Metformin HCl (Glucophage) 1,000 mg BIDWMEALS PO Last administered on 17:42; Start 07/06/17 at 08:00 Potassium Chloride (Klor-Con) 10 meq DAILYWBKFT PO Last administered on 07:45; Start 07/06/17 at 08:00 Non-Formulary Medication (Umeclidinium Brm/Vilanterol Tr (Anoro Ellipta 62.5-25 Mcg Inh)) 1 puff DAILY IH ; Start 07/06/17 at 09:00; Status UNV Citalopram Hydrobromide (CeleXA) 10 mg DAILY PO Last administered on 3/24/18at 07:46; Start 07/06/17 at 09:00 Pneumococcal Polyvalent Vaccine (Pneumovax 23) 0.5 ml ONCE ONCE VAX IM Last administered on 07/06/17at 10:40; Start 07/06/17 at 09:00; Stop 07/06/17 at 09:01 ; Status DC Nystatin (Nystop) 1 rosey BID TP Last administered on 07/15/17 17:49; Start at 09:00 Divalproex Sodium (Depakote Sprinkles) 500 mg TID PO Last administered on 12:32; Start 07/07/17 at 21:00; Stop 07/10/17 at 18:32; Status DC Trazodone HCl (Desyrel) 100 mg QHS PO Last administered on 07/15/17 17:43; Start 07/07/17 at 21:00 Trazodone HCl (Desyrel) 100 mg PRN QHS PRN PO prn insomnia; Start 07/07/17 at 21:00 Olanzapine (ZyPREXA ZYDIS) 5 mg PRN Q2HR PRN PO ANXIETY / AGITATION Last administered on 07/08/17at 11:32; Start 07/08/17 at 11:00 Divalproex Sodium (Depakote Sprinkles) 625 mg TID PO Last administered on at 08:33; Start 07/10/17 at 21:00; Stop 07/13/17 at 10:55; Status DC Quetiapine Fumarate (SEROquel) 12.5 mg TID@0900,1300,1700 PO Last administered on 07/12/17 17:23; Start 07/11/17 at 09:00; Stop 07/12/17 at 18:28; Status DC Quetiapine Fumarate (SEROquel) 25 mg TID@0900,1300,1700 PO Last administered on 07/15/17 17:45; Start 07/13/17 at 09:00 Divalproex Sodium (Depakote Sprinkles) 750 mg TID PO Last administered on 17:42; Start 07/13/17 at 14:00 Active Scripts Active Reported Depakote Sprinkle (Divalproex Sodium) 125 Mg Cap.sprink 500 Mg PO HS Duoneb 0.5-3(2.5) Mg/3 Ml (Albuterol/Ipratropium) 3 Ml Ampul.neb 3 Ml NEB PRN Q4HRS PRN Eucerin Creme (Mineral Oil/Petrolatum,White) 120 Gm Cream..g. 1 Rosey TP PRN TID PRN Tamsulosin Hcl 0.4 Mg Cap.er.24h 0.4 Mg PO HS Potassium Chloride 10 Meq Tablet.er 10 Meq PO DAILY Novolog Flexpen (Insulin Aspart) 100 Unit/1 Ml Insuln.pen 18 Units SQ TIDBFRMEAL Analgesic [place] (Methyl Salicylate/Menthol) 28 Gm Oint...g. 1 Rosey TP TID Mucinex (Guaifenesin) 600 Mg Tablet.er 600 Mg PO BID Metformin Hcl 1,000 Mg Tablet 1,000 Mg PO BIDWMEALS Namenda (Memantine Hcl) 10 Mg Tablet 10 Mg PO BID Loratadine 10 Mg Tablet 10 Mg PO DAILY Lisinopril 5 Mg Tablet 5 Mg PO DAILY Duoneb 0.5-3(2.5) Mg/3 Ml (Albuterol/Ipratropium) 3 Ml Ampul.neb 3 Ml NEB Q4HRS Hydrocodone-Apap 5-325 (Hydrocodone Bit/Acetaminophen) 1 Each Tablet 1 Tab PO Q6HRS PRN Furosemide 20 Mg Tablet 20 Mg PO DAILY Finasteride 5 Mg Tablet 5 Mg PO DAILY EXELON 9.5mg/24hr (Rivastigmine) 1 Each Patch.td24 1 Patch TD DAILY Escitalopram Oxalate 5 Mg Tablet 5 Mg PO DAILY Depakote Sprinkle (Divalproex Sodium) 125 Mg Cap.sprink 250 Mg PO BID Clopidogrel (Clopidogrel Bisulfate) 75 Mg Tablet 75 Mg PO DAILY Carvedilol 3.125 Mg Tablet 3.125 Mg PO BIDWMEALS Atorvastatin Calcium 20 Mg Tablet 20 Mg PO QHS Anoro Ellipta 62.5-25 Mcg Inh (Umeclidinium Brm/Vilanterol Tr) 1 Each Disk.w.dev 1 Puff IH DAILY Acetaminophen 500 Mg Tablet 500 Mg PO BID Gabapentin 300 Mg Capsule 300 Mg PO QID Aspirin 81 Mg Tab.chew 81 Mg PO DAILY Lantus Solostar (Insulin Glargine,Hum.rec.anlog) 100 Unit/1 Ml Insuln.pen 70 Unit SQ QHS I have reviewed the current psychotropics carefully including drug interactions. Risk benefit ratio favors no change other than as noted in my dictated progress note. Diagnosis: Problems: (1) Paranoid behavior (2) Alcohol-induced persisting dementia (3) Anxiety disorder (4) Impulse control disorder (5) Alcoholic psychosis (6) Dementia, vascular, with delusions SAMMY QUICK MD Jul 15, 2017 22:00
[2017-07-16 05:49] VITALS: BP 93/37
[2017-07-16] MEDS: IPRATRPIUM/ALBUTEROL 0.5/2.5MG 3 ML NEBU. NEB SCH ×6 (05:54→21:23)
[2017-07-16 06:30] VITALS: BP 102/58
[2017-07-16 06:35] VITALS: BP 102/58
[2017-07-16] MEDS: NICOTINE 21MG PATCH. TD SCH (07:35)
[2017-07-16] MEDS: metFORMIN 500 MG TABLET PO SCH ×2 (07:35→17:05)
[2017-07-16] MEDS: INSULIN ASPART 300 UNITS/3 ML INSULN.PEN SQ SCH ×3 (07:35→17:04)
[2017-07-16] MEDS: QUEtiapine 25 MG TABLET. PO SCH ×3 (07:36→17:05)
[2017-07-16] MEDS: FINASTERIDE 5 MG TABLET PO SCH (07:36)
[2017-07-16] MEDS: CETIRIZINE HCL 10 MG TABLET PO SCH (07:36)
[2017-07-16] MEDS: DIVALPROEX 125 MG CAP.SPRINK PO SCH ×3 (07:36→20:47)
[2017-07-16] MEDS: CLOPIDOGREL BISULFATE 75 MG TABLET PO SCH (07:36)
[2017-07-16] MEDS: RIVASTIGMINE 9.5MG PATCH. TD SCH (07:36)
[2017-07-16] MEDS: CITALOPRAM 10 MG TABLET. PO SCH (07:37)
[2017-07-16] MEDS: FUROSEMIDE 20 MG TABLET PO SCH (07:37)
[2017-07-16] MEDS: GABAPENTIN 300 MG CAPSULE. PO SCH ×4 (07:37→20:47)
[2017-07-16] MEDS: MEMANTINE 10 MG TABLET. PO SCH ×2 (07:37→20:47)
[2017-07-16] MEDS: ASPIRIN 81 MG TAB.CHEW PO SCH (07:37)
[2017-07-16] MEDS: POTASSIUM CHLORIDE 10 MEQ TABLET.ER. PO SCH (07:37)
[2017-07-16] MEDS: ACETAMINOPHEN 500 MG TABLET PO SCH ×2 (07:37→20:47)
[2017-07-16] MEDS: CARVEDILOL 3.125 MG TABLET PO SCH ×2 (07:37→17:05)
[2017-07-16] MEDS: METHYL SALICYLATE/MENTHOL TOPICAL OINTMENT 29GM TUBE. TP SCH ×3 (07:38→20:52)
[2017-07-16] MEDS: NYSTATIN TOPICAL POWDER 15GM BOTTLE. TP SCH ×2 (07:38→20:48)
[2017-07-16] MEDS: LISINOPRIL 5 MG TABLET. PO SCH (07:43)
[2017-07-16 16:07] VITALS: BP 138/64
[2017-07-16] MEDS: TAMSULOSIN 0.4 MG CAP.ER.24H. PO SCH (20:47)
[2017-07-16] MEDS: traZODone 100 MG TABLET. PO SCH (20:47)
[2017-07-16] MEDS: ATORVASTATIN CALCIUM 20 MG TABLET PO SCH (20:47)
--- NOTE | 2017-07-16 20:59 | PDOC ---
Exam Note: Rober Note: Please also refer to the separate dictated note~for this date of service dictated separately.~Patient seen individually. Discussed the patient with Nursing staff reviewed the chart.~Reviewed interim history and current functioning. Reviewed vital signs,~Labs/ Radiology~and current medications noted below. Continue current treatment with the changes noted in the dictated addendum note Assessment: Vital Signs: Vital Signs Date Time Temp Pulse Resp B/P (MAP) Pulse Ox O2 Delivery O2 Flow Rate FiO2 07/16/17 17:05 65 138/64 07/16/17 16:11 96 Room Air 07/16/17 16:07 97.8 20 I&O Intake and Output 07/16/17 07:00 Intake Total 1200 ml Balance 1200 ml Intake Oral 1200 ml Labs: Laboratory Tests Test 07/16/17 07:16 07/16/17 11:41 07/16/17 16:59 07/16/17 19:15 Glucose (Fingerstick) 84 mg/dL (70-99) 92 mg/dL (70-99) 136 mg/dL (70-99) H 107 mg/dL (70-99) H Current Medications: Meds: Current Medications Acetaminophen (Tylenol) 650 mg PRN Q6HRS PRN PO PAIN / TEMP Last administered on 07/10/17at 17:52; Start 07/05/17 at 22:45 Multi-Ingredient Ointment (Analgesic [place]) 1 rosey PRN QID PRN TP MUSCLE PAIN; Start 07/05/17 at 22:45 Al Hydroxide/Mg Hydroxide (Mylanta Plus Xs) 15 ml PRN AFTMEALHC PRN PO DYSPEPSIA; Start 07/05/17 at 22:45 Magnesium Hydroxide (Milk Of Magnesia) 2,400 mg PRN QHS PRN PO CONSTIPATION Last administered on 07/13/17at 17:35; Start 07/05/17 at 22:45 Nicotine (Nicoderm Cq 21mg) 1 patch DAILY TD Last administered on 07/16/17at 07: 35; Start 07/06/17 at 09:00 Divalproex Sodium (Depakote Sprinkles) 250 mg BID94 PO Last administered on at 16:36; Start 07/06/17 at 09:00; Stop 07/07/17 at 18:23; Status DC Divalproex Sodium (Depakote Sprinkles) 500 mg HS PO Last administered on 21:25; Start 07/06/17 at 21:00; Stop 07/07/17 at 18:23; Status DC Memantine (Namenda) 10 mg BID PO Last administered on 07/16/17 20:47; Start at 09:00 Rivastigmine (Exelon) 1 patch DAILY TD Last administered on 07/16/17 07:36; Start 07/06/17 at 09:00 Acetaminophen (Tylenol) 500 mg BID PO Last administered on 07/16/17 20:47; Start 07/06/17 at 09:00 Aspirin (Children'S Aspirin) 81 mg DAILY PO Last administered on 07/16/17 07: 37; Start 07/06/17 at 09:00 Atorvastatin Calcium (Lipitor) 20 mg QHS PO Last administered on 07/16/17 20: 47; Start 07/06/17 at 21:00 Carvedilol (Coreg) 3.125 mg BIDWMEALS PO Last administered on 07/16/17 17:05; Start 07/06/17 at 08:00 Clopidogrel Bisulfate (Plavix) 75 mg DAILY PO Last administered on 07/16/17 07 :36; Start 07/06/17 at 09:00 Finasteride (Proscar) 5 mg DAILY PO Last administered on 07/16/17 07:36; Start 07/06/17 at 09:00 Furosemide (Lasix) 20 mg DAILY PO Last administered on 07/16/17 07:37; Start 07/06/17 at 09:00 Gabapentin (Neurontin) 300 mg QID PO Last administered on 07/16/17 20:47; Start 07/06/17 at 09:00 Guaifenesin (Mucinex Er) 600 mg BID PO Last administered on 07/16/17 20:47; Start 07/06/17 at 09:00 Acetaminophen/ Hydrocodone Bitart (Lortab 5/325) 1 tab PRN Q6HRS PRN PO PAIN Last administered on 07/15/17 03:10; Start 07/06/17 at 02:00 Insulin Aspart (NovoLOG) 18 units TIDBFRMEAL SQ Last administered on 07/16/17 17:04; Start 07/06/17 at 07:30 Albuterol Sulfate (Ventolin) 2.5 mg PRN Q4HRS PRN NEB SHORTNESS OF BREATH Last administered on 07/08/17 11:27; Start 07/06/17 at 02:15 Albuterol/ Ipratropium (Duoneb) 3 ml Q4HRS NEB Last administered on 07/16/17 16:11; Start 07/06/17 at 04:00 Lisinopril (Prinivil) 5 mg DAILY PO Last administered on 07/16/17 07:43; Start 07/06/17 at 09:00 Multi-Ingredient Ointment (Analgesic [place]) 1 rosey TID TP Last administered on 21:11; Start 07/06/17 at 09:00 Multi-Ingred Cream/Lotion/Oil/ Oint (Hydrocerin) 1 rosey PRN TID PRN TP DRY SKIN / SCALING; Start 07/06/17 at 02:00 Tamsulosin HCl (Flomax) 0.4 mg HS PO Last administered on 07/16/17 20:47; Start 07/06/17 at 21:00 Insulin Detemir (Levemir) 70 units QHS SQ Last administered on 07/15/17 17:45 ; Start 07/06/17 at 21:00 Cetirizine HCl (ZyrTEC) 10 mg DAILY PO Last administered on 07/16/17 07:36; Start 07/06/17 at 09:00 Metformin HCl (Glucophage) 1,000 mg BIDWMEALS PO Last administered on 17:05; Start 07/06/17 at 08:00 Potassium Chloride (Klor-Con) 10 meq DAILYWBKFT PO Last administered on 07:37; Start 07/06/17 at 08:00 Non-Formulary Medication (Umeclidinium Brm/Vilanterol Tr (Anoro Ellipta 62.5-25 Mcg Inh)) 1 puff DAILY IH ; Start 07/06/17 at 09:00; Status UNV Citalopram Hydrobromide (CeleXA) 10 mg DAILY PO Last administered on 07/16/17 07:37; Start 07/06/17 at 09:00 Pneumococcal Polyvalent Vaccine (Pneumovax 23) 0.5 ml ONCE ONCE VAX IM Last administered on 07/06/17 10:40; Start 07/06/17 at 09:00; Stop 07/06/17 at 09:01 ; Status DC Nystatin (Nystop) 1 rosey BID TP Last administered on 07/16/17 20:48; Start at 09:00 Divalproex Sodium (Depakote Sprinkles) 500 mg TID PO Last administered on at 12:32; Start 07/07/17 at 21:00; Stop 07/10/17 at 18:32; Status DC Trazodone HCl (Desyrel) 100 mg QHS PO Last administered on 07/16/17 20:47; Start 07/07/17 at 21:00 Trazodone HCl (Desyrel) 100 mg PRN QHS PRN PO prn insomnia; Start 07/07/17 at 21:00 Olanzapine (ZyPREXA ZYDIS) 5 mg PRN Q2HR PRN PO ANXIETY / AGITATION Last administered on 07/08/17at 11:32; Start 07/08/17 at 11:00 Divalproex Sodium (Depakote Sprinkles) 625 mg TID PO Last administered on 08:33; Start 07/10/17 at 21:00; Stop 07/13/17 at 10:55; Status DC Quetiapine Fumarate (SEROquel) 12.5 mg TID@0900,1300,1700 PO Last administered on 07/12/17at 17:23; Start 07/11/17 at 09:00; Stop 07/12/17 at 18:28; Status DC Quetiapine Fumarate (SEROquel) 25 mg TID@0900,1300,1700 PO Last administered on 07/16/17 17:05; Start 07/13/17 at 09:00 Divalproex Sodium (Depakote Sprinkles) 750 mg TID PO Last administered on 20:47; Start 07/13/17 at 14:00 Active Scripts Active Reported Depakote Sprinkle (Divalproex Sodium) 125 Mg Cap.sprink 500 Mg PO HS Duoneb 0.5-3(2.5) Mg/3 Ml (Albuterol/Ipratropium) 3 Ml Ampul.neb 3 Ml NEB PRN Q4HRS PRN Eucerin Creme (Mineral Oil/Petrolatum,White) 120 Gm Cream..g. 1 Rosey TP PRN TID PRN Tamsulosin Hcl 0.4 Mg Cap.er.24h 0.4 Mg PO HS Potassium Chloride 10 Meq Tablet.er 10 Meq PO DAILY Novolog Flexpen (Insulin Aspart) 100 Unit/1 Ml Insuln.pen 18 Units SQ TIDBFRMEAL Analgesic [place] (Methyl Salicylate/Menthol) 28 Gm Oint...g. 1 Rosey TP TID Mucinex (Guaifenesin) 600 Mg Tablet.er 600 Mg PO BID Metformin Hcl 1,000 Mg Tablet 1,000 Mg PO BIDWMEALS Namenda (Memantine Hcl) 10 Mg Tablet 10 Mg PO BID Loratadine 10 Mg Tablet 10 Mg PO DAILY Lisinopril 5 Mg Tablet 5 Mg PO DAILY Duoneb 0.5-3(2.5) Mg/3 Ml (Albuterol/Ipratropium) 3 Ml Ampul.neb 3 Ml NEB Q4HRS Hydrocodone-Apap 5-325 (Hydrocodone Bit/Acetaminophen) 1 Each Tablet 1 Tab PO Q6HRS PRN Furosemide 20 Mg Tablet 20 Mg PO DAILY Finasteride 5 Mg Tablet 5 Mg PO DAILY EXELON 9.5mg/24hr (Rivastigmine) 1 Each Patch.td24 1 Patch TD DAILY Escitalopram Oxalate 5 Mg Tablet 5 Mg PO DAILY Depakote Sprinkle (Divalproex Sodium) 125 Mg Cap.sprink 250 Mg PO BID Clopidogrel (Clopidogrel Bisulfate) 75 Mg Tablet 75 Mg PO DAILY Carvedilol 3.125 Mg Tablet 3.125 Mg PO BIDWMEALS Atorvastatin Calcium 20 Mg Tablet 20 Mg PO QHS Anoro Ellipta 62.5-25 Mcg Inh (Umeclidinium Brm/Vilanterol Tr) 1 Each Disk.w.dev 1 Puff IH DAILY Acetaminophen 500 Mg Tablet 500 Mg PO BID Gabapentin 300 Mg Capsule 300 Mg PO QID Aspirin 81 Mg Tab.chew 81 Mg PO DAILY Lantus Solostar (Insulin Glargine,Hum.rec.anlog) 100 Unit/1 Ml Insuln.pen 70 Unit SQ QHS I have reviewed the current psychotropics carefully including drug interactions. Risk benefit ratio favors no change other than as noted in my dictated progress note. Diagnosis: Problems: (1) Paranoid behavior (2) Alcohol-induced persisting dementia (3) Anxiety disorder (4) Impulse control disorder (5) Alcoholic psychosis (6) Dementia, vascular, with delusions SAMMY QUICK MD Jul 16, 2017 20:59
[2017-07-16] MEDS: INSULIN DETEMIR 300 UNITS/3 ML INSULN.PEN. SQ SCH (21:26)
[2017-07-17] MEDS: IPRATRPIUM/ALBUTEROL 0.5/2.5MG 3 ML NEBU. NEB SCH ×6 (04:00→21:13)
[2017-07-17 06:01] VITALS: BP 143/79
[2017-07-17 07:47] LABS: BASO # 0.1 x10^3/uL (0.0-0.2); BASO % 1 % (0-3); EOS # 0.2 x10^3/uL (0.0-0.7); EOS % 2 % (0-3); HEMATOCRIT 39.2 % (39.0-53.0); LYMPH # 3.6 x10^3/uL (1.0-4.8); LYMPH % 42 % (24-48); MEAN CORPUSCULAR HEMOGLOBIN 30 pg (25-35); MEAN CORPUSCULAR HGB CONC 33 g/dL (31-37); MEAN CORPUSCULAR VOLUME 91 fL (79-100); MONO # 0.6 x10^3/uL (0.0-1.1); MONO % 7 % (0-9); NEUT # 4.2 x10^3uL (1.8-7.7); NEUT % 49 % (31-73); PLATELET COUNT 179 x10^3/uL (140-400); RED BLOOD COUNT 4.32 x10^6/uL (4.30-5.70); RED CELL DISTRIBUTION WIDTH 15.1 % (11.5-14.5); WHITE BLOOD COUNT 8.6 x10^3/uL (4.0-11.0)
[2017-07-17] MEDS: CLOPIDOGREL BISULFATE 75 MG TABLET PO SCH (07:50)
[2017-07-17] MEDS: FUROSEMIDE 20 MG TABLET PO SCH (07:50)
[2017-07-17] MEDS: DIVALPROEX 125 MG CAP.SPRINK PO SCH ×3 (07:50→19:22)
[2017-07-17] MEDS: metFORMIN 500 MG TABLET PO SCH ×2 (07:51→17:33)
[2017-07-17] MEDS: POTASSIUM CHLORIDE 10 MEQ TABLET.ER. PO SCH (07:51)
[2017-07-17] MEDS: FINASTERIDE 5 MG TABLET PO SCH (07:51)
[2017-07-17] MEDS: LISINOPRIL 5 MG TABLET. PO SCH (07:52)
[2017-07-17] MEDS: CETIRIZINE HCL 10 MG TABLET PO SCH (07:52)
[2017-07-17] MEDS: CARVEDILOL 3.125 MG TABLET PO SCH ×2 (07:53→17:33)
[2017-07-17] MEDS: CITALOPRAM 10 MG TABLET. PO SCH (07:53)
[2017-07-17] MEDS: MEMANTINE 10 MG TABLET. PO SCH ×2 (07:53→19:20)
[2017-07-17] MEDS: ACETAMINOPHEN 500 MG TABLET PO SCH ×2 (07:53→19:20)
[2017-07-17] MEDS: QUEtiapine 25 MG TABLET. PO SCH ×3 (07:54→17:31)
[2017-07-17] MEDS: ASPIRIN 81 MG TAB.CHEW PO SCH (07:55)
[2017-07-17] MEDS: GABAPENTIN 300 MG CAPSULE. PO SCH ×4 (07:55→19:20)
[2017-07-17] MEDS: NICOTINE 21MG PATCH. TD SCH (07:56)
[2017-07-17] MEDS: RIVASTIGMINE 9.5MG PATCH. TD SCH (07:56)
[2017-07-17] MEDS: INSULIN ASPART 300 UNITS/3 ML INSULN.PEN SQ SCH ×3 (08:02→16:30)
[2017-07-17] MEDS: HYDROcodone/APAP 5/325MG 1 TAB TABLET PO PRN (08:04)
[2017-07-17 08:14] LABS: ALBUMIN 3.1 g/dL (3.4-5.0); ALBUMIN/GLOBULIN RATIO 0.7 (1.0-1.7); ALK PHOS 69 U/L (46-116); ALT (SGPT) 25 U/L (16-63); ANION GAP 11 (6-14); AST (SGOT) 23 U/L (15-37); BLOOD UREA NITROGEN 24 mg/dL (8-26); BUN/CREATININE RATIO 24 (6-20); CALCIUM 9.6 mg/dL (8.5-10.1); CARBON DIOXIDE 26 mmol/L (21-32); CHLORIDE 105 mmol/L (98-107); GFR 72.5; GLUCOSE 100 mg/dL (70-99); MAGNESIUM 1.9 mg/dL (1.8-2.4); POTASSIUM 4.5 mmol/L (3.5-5.1); SODIUM 142 mmol/L (136-145); TOTAL BILIRUBIN 0.2 mg/dL (0.2-1.0); TOTAL PROTEIN 7.5 g/dL (6.4-8.2)
[2017-07-17 08:18] LABS: VAL ACID 46 mcg/mL (50-100)
[2017-07-17] MEDS: METHYL SALICYLATE/MENTHOL TOPICAL OINTMENT 29GM TUBE. TP SCH ×3 (09:00→19:24)
[2017-07-17] MEDS: NYSTATIN TOPICAL POWDER 15GM BOTTLE. TP SCH ×2 (12:15→19:24)
[2017-07-17 16:06] VITALS: BP 116/57
[2017-07-17 17:32] VITALS: BP 108/63
[2017-07-17] MEDS: TAMSULOSIN 0.4 MG CAP.ER.24H. PO SCH (19:20)
[2017-07-17] MEDS: ATORVASTATIN CALCIUM 20 MG TABLET PO SCH (19:20)
[2017-07-17] MEDS: traZODone 100 MG TABLET. PO SCH (19:20)
[2017-07-17] MEDS: INSULIN DETEMIR 300 UNITS/3 ML INSULN.PEN. SQ SCH (19:26)
--- NOTE | 2017-07-17 20:56 | PDOC ---
Exam Note: Rober Note: Please also refer to the separate dictated note~for this date of service dictated separately.~Patient seen individually. Discussed the patient with Nursing staff reviewed the chart.~Reviewed interim history and current functioning. Reviewed vital signs,~Labs/ Radiology~and current medications noted below. Continue current treatment with the changes noted in the dictated addendum note Assessment: Vital Signs: Vital Signs Date Time Temp Pulse Resp B/P (MAP) Pulse Ox O2 Delivery O2 Flow Rate FiO2 07/17/17 17:33 83 108/63 07/17/17 17:32 Room Air 07/17/17 16:20 96 07/17/17 16:06 97.2 18 I&O Intake and Output 07/17/17 07:00 Intake Total 1685 ml Balance 1685 ml Intake Oral 1685 ml Labs: Laboratory Tests Test 07/17/17 07:19 07/17/17 07:31 07/17/17 11:52 07/17/17 16:48 White Blood Count 8.6 x10^3/uL (4.0-11.0) Red Blood Count 4.32 x10^6/uL (4.30-5.70) Hemoglobin 13.0 g/dL (13.0-17.5) Hematocrit 39.2 % (39.0-53.0) Mean Corpuscular Volume 91 fL (79-100) Mean Corpuscular Hemoglobin 30 pg (25-35) Mean Corpuscular Hemoglobin Concent 33 g/dL (31-37) Red Cell Distribution Width 15.1 % (11.5-14.5) H Platelet Count 179 x10^3/uL (140-400) Neutrophils (%) (Auto) 49 % (31-73) Lymphocytes (%) (Auto) 42 % (24-48) Monocytes (%) (Auto) 7 % (0-9) Eosinophils (%) (Auto) 2 % (0-3) Basophils (%) (Auto) 1 % (0-3) Neutrophils # (Auto) 4.2 x10^3uL (1.8-7.7) Lymphocytes # (Auto) 3.6 x10^3/uL (1.0-4.8) Monocytes # (Auto) 0.6 x10^3/uL (0.0-1.1) Eosinophils # (Auto) 0.2 x10^3/uL (0.0-0.7) Basophils # (Auto) 0.1 x10^3/uL (0.0-0.2) Sodium Level 142 mmol/L (136-145) Potassium Level 4.5 mmol/L (3.5-5.1) Chloride Level 105 mmol/L (98-107) Carbon Dioxide Level 26 mmol/L (21-32) Anion Gap 11 (6-14) Blood Urea Nitrogen 24 mg/dL (8-26) Creatinine 1.0 mg/dL (0.7-1.3) Estimated GFR (Cockcroft-Gault) 72.5 BUN/Creatinine Ratio 24 (6-20) H Glucose Level 100 mg/dL (70-99) H Calcium Level 9.6 mg/dL (8.5-10.1) Magnesium Level 1.9 mg/dL (1.8-2.4) Total Bilirubin 0.2 mg/dL (0.2-1.0) Aspartate Amino Transferase (AST) 23 U/L (15-37) Alanine Aminotransferase (ALT) 25 U/L (16-63) Alkaline Phosphatase 69 U/L (46-116) Total Protein 7.5 g/dL (6.4-8.2) Albumin 3.1 g/dL (3.4-5.0) L Albumin/Globulin Ratio 0.7 (1.0-1.7) L Valproic Acid Level 46 mcg/mL (50-100) L Valproic Acid Last Dose Date 07/16/17 Valproic Acid Last Dose Time 2100 Glucose (Fingerstick) 87 mg/dL (70-99) 87 mg/dL (70-99) 62 mg/dL (70-99) L Test 07/17/17 19:20 Glucose (Fingerstick) 110 mg/dL (70-99) H Current Medications: Meds: Current Medications Acetaminophen (Tylenol) 650 mg PRN Q6HRS PRN PO PAIN / TEMP Last administered on 07/10/17at 17:52; Start 07/05/17 at 22:45 Multi-Ingredient Ointment (Analgesic [place]) 1 rosey PRN QID PRN TP MUSCLE PAIN; Start 07/05/17 at 22:45 Al Hydroxide/Mg Hydroxide (Mylanta Plus Xs) 15 ml PRN AFTMEALHC PRN PO DYSPEPSIA; Start 07/05/17 at 22:45 Magnesium Hydroxide (Milk Of Magnesia) 2,400 mg PRN QHS PRN PO CONSTIPATION Last administered on 07/13/17 17:35; Start 07/05/17 at 22:45 Nicotine (Nicoderm Cq 21mg) 1 patch DAILY TD Last administered on 07/17/17 07: 56; Start 07/06/17 at 09:00 Divalproex Sodium (Depakote Sprinkles) 250 mg BID94 PO Last administered on 16:36; Start 07/06/17 at 09:00; Stop 07/07/17 at 18:23; Status DC Divalproex Sodium (Depakote Sprinkles) 500 mg HS PO Last administered on 21:25; Start 07/06/17 at 21:00; Stop 07/07/17 at 18:23; Status DC Memantine (Namenda) 10 mg BID PO Last administered on 07/17/17 19:20; Start at 09:00 Rivastigmine (Exelon) 1 patch DAILY TD Last administered on 07/17/17 07:56; Start 07/06/17 at 09:00 Acetaminophen (Tylenol) 500 mg BID PO Last administered on 07/17/17 19:20; Start 07/06/17 at 09:00 Aspirin (Children'S Aspirin) 81 mg DAILY PO Last administered on 07/17/17 07: 55; Start 07/06/17 at 09:00 Atorvastatin Calcium (Lipitor) 20 mg QHS PO Last administered on 07/17/17 19: 20; Start 07/06/17 at 21:00 Carvedilol (Coreg) 3.125 mg BIDWMEALS PO Last administered on 07/17/17 17:33; Start 07/06/17 at 08:00 Clopidogrel Bisulfate (Plavix) 75 mg DAILY PO Last administered on 07/17/17 07 :50; Start 07/06/17 at 09:00 Finasteride (Proscar) 5 mg DAILY PO Last administered on 07/17/17 07:51; Start 07/06/17 at 09:00 Furosemide (Lasix) 20 mg DAILY PO Last administered on 07/17/17 07:50; Start 07/06/17 at 09:00 Gabapentin (Neurontin) 300 mg QID PO Last administered on 07/17/17 19:20; Start 07/06/17 at 09:00 Guaifenesin (Mucinex Er) 600 mg BID PO Last administered on 07/17/17 19:20; Start 07/06/17 at 09:00 Acetaminophen/ Hydrocodone Bitart (Lortab 5/325) 1 tab PRN Q6HRS PRN PO PAIN Last administered on 07/17/17 08:04; Start 07/06/17 at 02:00 Insulin Aspart (NovoLOG) 18 units TIDBFRMEAL SQ Last administered on 07/17/17 12:15; Start 07/06/17 at 07:30 Albuterol Sulfate (Ventolin) 2.5 mg PRN Q4HRS PRN NEB SHORTNESS OF BREATH Last administered on 07/08/17 11:27; Start 07/06/17 at 02:15 Albuterol/ Ipratropium (Duoneb) 3 ml Q4HRS NEB Last administered on 07/17/17 16:19; Start 07/06/17 at 04:00 Lisinopril (Prinivil) 5 mg DAILY PO Last administered on 07/17/17 07:52; Start 07/06/17 at 09:00 Multi-Ingredient Ointment (Analgesic [place]) 1 rosey TID TP Last administered on 19:24; Start 07/06/17 at 09:00 Multi-Ingred Cream/Lotion/Oil/ Oint (Hydrocerin) 1 rosey PRN TID PRN TP DRY SKIN / SCALING; Start 07/06/17 at 02:00 Tamsulosin HCl (Flomax) 0.4 mg HS PO Last administered on 07/17/17 19:20; Start 07/06/17 at 21:00 Insulin Detemir (Levemir) 70 units QHS SQ Last administered on 07/16/17 21:26 ; Start 07/06/17 at 21:00 Cetirizine HCl (ZyrTEC) 10 mg DAILY PO Last administered on 07/17/17 07:52; Start 07/06/17 at 09:00 Metformin HCl (Glucophage) 1,000 mg BIDWMEALS PO Last administered on 17:33; Start 07/06/17 at 08:00 Potassium Chloride (Klor-Con) 10 meq DAILYWBKFT PO Last administered on at 07:51; Start 07/06/17 at 08:00 Non-Formulary Medication (Umeclidinium Brm/Vilanterol Tr (Anoro Ellipta 62.5-25 Mcg Inh)) 1 puff DAILY IH ; Start 07/06/17 at 09:00; Status UNV Citalopram Hydrobromide (CeleXA) 10 mg DAILY PO Last administered on 07/17/17 07:53; Start 07/06/17 at 09:00 Pneumococcal Polyvalent Vaccine (Pneumovax 23) 0.5 ml ONCE ONCE VAX IM Last administered on 07/06/17at 10:40; Start 07/06/17 at 09:00; Stop 07/06/17 at 09:01 ; Status DC Nystatin (Nystop) 1 rosey BID TP Last administered on 07/17/17at 19:24; Start at 09:00 Divalproex Sodium (Depakote Sprinkles) 500 mg TID PO Last administered on at 12:32; Start 07/07/17 at 21:00; Stop 07/10/17 at 18:32; Status DC Trazodone HCl (Desyrel) 100 mg QHS PO Last administered on 07/17/17at 19:20; Start 07/07/17 at 21:00 Trazodone HCl (Desyrel) 100 mg PRN QHS PRN PO prn insomnia; Start 07/07/17 at 21:00 Olanzapine (ZyPREXA ZYDIS) 5 mg PRN Q2HR PRN PO ANXIETY / AGITATION Last administered on 07/08/17at 11:32; Start 07/08/17 at 11:00 Divalproex Sodium (Depakote Sprinkles) 625 mg TID PO Last administered on at 08:33; Start 07/10/17 at 21:00; Stop 07/13/17 at 10:55; Status DC Quetiapine Fumarate (SEROquel) 12.5 mg TID@0900,1300,1700 PO Last administered on 3/21/18at 17:23; Start 07/11/17 at 09:00; Stop 07/12/17 at 18:28; Status DC Quetiapine Fumarate (SEROquel) 25 mg TID@0900,1300,1700 PO Last administered on 07/17/17at 17:31; Start 07/13/17 at 09:00 Divalproex Sodium (Depakote Sprinkles) 750 mg TID PO Last administered on at 12:13; Start 07/13/17 at 14:00; Stop 07/17/17 at 18:48; Status DC Divalproex Sodium (Depakote Sprinkles) 875 mg TID PO Last administered on at 19:22; Start 07/17/17 at 21:00 Active Scripts Active Reported Depakote Sprinkle (Divalproex Sodium) 125 Mg Cap.sprink 500 Mg PO HS Duoneb 0.5-3(2.5) Mg/3 Ml (Albuterol/Ipratropium) 3 Ml Ampul.neb 3 Ml NEB PRN Q4HRS PRN Eucerin Creme (Mineral Oil/Petrolatum,White) 120 Gm Cream..g. 1 Rosey TP PRN TID PRN Tamsulosin Hcl 0.4 Mg Cap.er.24h 0.4 Mg PO HS Potassium Chloride 10 Meq Tablet.er 10 Meq PO DAILY Novolog Flexpen (Insulin Aspart) 100 Unit/1 Ml Insuln.pen 18 Units SQ TIDBFRMEAL Analgesic [place] (Methyl Salicylate/Menthol) 28 Gm Oint...g. 1 Rosey TP TID Mucinex (Guaifenesin) 600 Mg Tablet.er 600 Mg PO BID Metformin Hcl 1,000 Mg Tablet 1,000 Mg PO BIDWMEALS Namenda (Memantine Hcl) 10 Mg Tablet 10 Mg PO BID Loratadine 10 Mg Tablet 10 Mg PO DAILY Lisinopril 5 Mg Tablet 5 Mg PO DAILY Duoneb 0.5-3(2.5) Mg/3 Ml (Albuterol/Ipratropium) 3 Ml Ampul.neb 3 Ml NEB Q4HRS Hydrocodone-Apap 5-325 (Hydrocodone Bit/Acetaminophen) 1 Each Tablet 1 Tab PO Q6HRS PRN Furosemide 20 Mg Tablet 20 Mg PO DAILY Finasteride 5 Mg Tablet 5 Mg PO DAILY EXELON 9.5mg/24hr (Rivastigmine) 1 Each Patch.td24 1 Patch TD DAILY Escitalopram Oxalate 5 Mg Tablet 5 Mg PO DAILY Depakote Sprinkle (Divalproex Sodium) 125 Mg Cap.sprink 250 Mg PO BID Clopidogrel (Clopidogrel Bisulfate) 75 Mg Tablet 75 Mg PO DAILY Carvedilol 3.125 Mg Tablet 3.125 Mg PO BIDWMEALS Atorvastatin Calcium 20 Mg Tablet 20 Mg PO QHS Anoro Ellipta 62.5-25 Mcg Inh (Umeclidinium Brm/Vilanterol Tr) 1 Each Disk.w.dev 1 Puff IH DAILY Acetaminophen 500 Mg Tablet 500 Mg PO BID Gabapentin 300 Mg Capsule 300 Mg PO QID Aspirin 81 Mg Tab.chew 81 Mg PO DAILY Lantus Solostar (Insulin Glargine,Hum.rec.anlog) 100 Unit/1 Ml Insuln.pen 70 Unit SQ QHS I have reviewed the current psychotropics carefully including drug interactions. Risk benefit ratio favors no change other than as noted in my dictated progress note. Diagnosis: Problems: (1) Paranoid behavior (2) Alcohol-induced persisting dementia (3) Anxiety disorder (4) Impulse control disorder (5) Alcoholic psychosis (6) Dementia, vascular, with delusions SAMMY QUICK MD Jul 17, 2017 20:56
--- NOTE | 2017-07-17 22:42 | PN ---
DATE: 07/15/2017 This is a late entry for 07/15/2017 and covers the elements not covered in my initial note of 07/15/2017. SUBJECTIVE: I met with the patient in the evening of 07/15/2017. The patient slept 2-3/4 hours previous evening. He has urinated on the floor once the previous night, but very pleasant, saying please and thank you to nursing staff, quite a change for him. REVIEW OF SYSTEMS: Ambulation impaired with walker. No CV, , pulmonary, eye, ENT system symptoms on review. MENTAL STATUS EXAM: Oriented to himself and situation. Speech coherent, rapid, loud at times, less so than before. Abstraction fair, computation impaired, language function intact. Short term memory is impaired. Mood and affect still anxious, labile better than before. LABORATORY DATA: Reviewed. IMPRESSION: Unchanged from initial note. PLAN: Valproic acid level is subtherapeutic at 35. We will repeat labs and valproic acid level on 07/17/2017 since Depakote was increased. Continue Rest unchanged per initial note. MAN Francoise QUICK MD DR: REID/elvia JOB#: [id number] / [id number]
--- NOTE | 2017-07-18 02:40 | PN ---
DATE: 07/16/2017 PSYCHIATRIC PROGRESS NOTE This is a late entry of 07/16/2017 covers elements not covered in my initial note of 07/16/2017. I met with the patient in his room at length on the evening of 07/16/2017. The patient slept 7 hours previous evening, nocturnal desaturation studies are being completed. He has been more cooperative, not urinated on the floor, thankful to staff, changed his own pants during the day, pleasant. REVIEW OF SYSTEMS: Ambulation impaired with walker. No CV, , pulmonary, eye, ENT system symptoms on review. MENTAL STATUS EXAM: Oriented to himself and situation. Speech has some latency, coherent, less pressured. Abstraction fair, computation impaired, language function intact, attention span short. Mood and affect, lability is improved. LABORATORY DATA: Reviewed. 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 PLAN: Continue current psychotropics. Valproic acid level at last check was 35, it will be repeated on 07/17/2017. For now, continue rest of the psychotropics mentioned in my initial note. MAN Francoise QUICK MD DR: REID/elvia JOB#: [id number] / [id number]
[2017-07-18] MEDS: IPRATRPIUM/ALBUTEROL 0.5/2.5MG 3 ML NEBU. NEB SCH ×6 (04:00→22:13)
[2017-07-18] MEDS: HYDROcodone/APAP 5/325MG 1 TAB TABLET PO PRN (05:17)
[2017-07-18 06:02] VITALS: BP 124/58
[2017-07-18] MEDS: RIVASTIGMINE 9.5MG PATCH. TD SCH (07:25)
[2017-07-18] MEDS: GABAPENTIN 300 MG CAPSULE. PO SCH ×4 (07:25→20:00)
[2017-07-18] MEDS: CARVEDILOL 3.125 MG TABLET PO SCH ×2 (07:25→17:10)
[2017-07-18] MEDS: CLOPIDOGREL BISULFATE 75 MG TABLET PO SCH (07:25)
[2017-07-18] MEDS: LISINOPRIL 5 MG TABLET. PO SCH (07:26)
[2017-07-18] MEDS: ASPIRIN 81 MG TAB.CHEW PO SCH (07:26)
[2017-07-18] MEDS: CITALOPRAM 10 MG TABLET. PO SCH (07:26)
[2017-07-18] MEDS: metFORMIN 500 MG TABLET PO SCH ×2 (07:26→17:10)
[2017-07-18] MEDS: CETIRIZINE HCL 10 MG TABLET PO SCH (07:26)
[2017-07-18] MEDS: FUROSEMIDE 20 MG TABLET PO SCH (07:26)
[2017-07-18] MEDS: FINASTERIDE 5 MG TABLET PO SCH (07:26)
[2017-07-18] MEDS: MEMANTINE 10 MG TABLET. PO SCH ×2 (07:26→20:00)
[2017-07-18] MEDS: POTASSIUM CHLORIDE 10 MEQ TABLET.ER. PO SCH (07:27)
[2017-07-18] MEDS: ACETAMINOPHEN 500 MG TABLET PO SCH ×2 (07:27→20:00)
[2017-07-18] MEDS: QUEtiapine 25 MG TABLET. PO SCH ×3 (07:27→17:10)
[2017-07-18] MEDS: DIVALPROEX 125 MG CAP.SPRINK PO SCH ×3 (07:27→20:00)
[2017-07-18] MEDS: NYSTATIN TOPICAL POWDER 15GM BOTTLE. TP SCH ×2 (07:28→20:01)
[2017-07-18] MEDS: METHYL SALICYLATE/MENTHOL TOPICAL OINTMENT 29GM TUBE. TP SCH ×3 (07:28→20:01)
[2017-07-18] MEDS: INSULIN ASPART 300 UNITS/3 ML INSULN.PEN SQ SCH ×3 (08:13→16:30)
[2017-07-18] MEDS: NICOTINE 21MG PATCH. TD SCH (09:00)
[2017-07-18] MEDS: MAGNESIUM HYDROXIDE 2,400 MG/30 ML ORAL.SUSP. PO PRN (12:39)
[2017-07-18 16:07] VITALS: BP 125/65
--- NOTE | 2017-07-18 19:56 | PN ---
DATE: 07/17/2017 This is a late entry for 07/17/2017 and covers the elements not covered in my initial note of 07/17/2017. SUBJECTIVE: I met with the patient in the evening of 07/17/2017. The patient slept 7 hours previous evening, more compliant with his medications, oriented to place and year. He is somewhat obsessive about the halfway talking and how he felt he was treated unfairly there. He has talked to his daughter. At times, his mood is labile, but no urination on the floor noted, compliant with his bedtime medications, slept 7 hours. REVIEW OF SYSTEMS: Ambulation impaired with walker. No CV, , pulmonary, eye system symptoms on review. Nocturnal desaturation studies are being completed. MENTAL STATUS EXAM: Oriented to himself. Insight, judgment, recent memory is impaired. Language function intact. Attention span short. Mood and affect less labile. No active suicidal or homicidal ideation. LABORATORY DATA: Reviewed. IMPRESSION: Bipolar disorder, mixed with psychotic features, in partial remission; major neurocognitive disorder, early secondary to alcohol with delusion, depression. PLAN: Valproic acid level is 46. Increase Depakote Sprinkles from 750 mg 3 times a day to 875 mg 3 times a day. Check CBC, CMP, valproic acid level in 3 days. Continue Rest unchanged per initial note. MAN Francoise QUICK MD DR: REID/elvia JOB#: [id number] / [id number]
[2017-07-18] MEDS: TAMSULOSIN 0.4 MG CAP.ER.24H. PO SCH (20:00)
[2017-07-18] MEDS: ATORVASTATIN CALCIUM 20 MG TABLET PO SCH (20:00)
[2017-07-18] MEDS: traZODone 100 MG TABLET. PO SCH (20:00)
[2017-07-18] MEDS: INSULIN DETEMIR 300 UNITS/3 ML INSULN.PEN. SQ SCH (20:04)
--- NOTE | 2017-07-18 20:49 | PDOC ---
Exam Note: Rober Note: Please also refer to the separate dictated note~for this date of service dictated separately.~Patient seen individually. Discussed the patient with Nursing staff reviewed the chart.~Reviewed interim history and current functioning. Reviewed vital signs,~Labs/ Radiology~and current medications noted below. Continue current treatment with the changes noted in the dictated addendum note Assessment: Vital Signs: Vital Signs Date Time Temp Pulse Resp B/P (MAP) Pulse Ox O2 Delivery O2 Flow Rate FiO2 07/18/17 17:10 76 125/65 07/18/17 16:07 97.3 20 94 07/18/17 15:25 Room Air I&O Intake and Output 07/18/17 07:00 Intake Total 1680 ml Balance 1680 ml Intake Oral 1680 ml Labs: Laboratory Tests Test 07/18/17 07:20 07/18/17 07:21 07/18/17 11:26 07/18/17 16:42 Glucose (Fingerstick) 94 mg/dL (70-99) 101 mg/dL (70-99) H 97 mg/dL (70-99) 71 mg/dL (70-99) Test 07/18/17 19:46 Glucose (Fingerstick) 134 mg/dL (70-99) H Current Medications: Meds: Current Medications Acetaminophen (Tylenol) 650 mg PRN Q6HRS PRN PO PAIN / TEMP Last administered on 07/10/17at 17:52; Start 07/05/17 at 22:45 Multi-Ingredient Ointment (Analgesic [place]) 1 rosey PRN QID PRN TP MUSCLE PAIN; Start 07/05/17 at 22:45 Al Hydroxide/Mg Hydroxide (Mylanta Plus Xs) 15 ml PRN AFTMEALHC PRN PO DYSPEPSIA; Start 07/05/17 at 22:45 Magnesium Hydroxide (Milk Of Magnesia) 2,400 mg PRN QHS PRN PO CONSTIPATION Last administered on 07/18/17at 12:39; Start 07/05/17 at 22:45 Nicotine (Nicoderm Cq 21mg) 1 patch DAILY TD Last administered on 07/17/17at 07: 56; Start 07/06/17 at 09:00 Divalproex Sodium (Depakote Sprinkles) 250 mg BID94 PO Last administered on at 16:36; Start 07/06/17 at 09:00; Stop 07/07/17 at 18:23; Status DC Divalproex Sodium (Depakote Sprinkles) 500 mg HS PO Last administered on 21:25; Start 07/06/17 at 21:00; Stop 07/07/17 at 18:23; Status DC Memantine (Namenda) 10 mg BID PO Last administered on 07/18/17 20:00; Start at 09:00 Rivastigmine (Exelon) 1 patch DAILY TD Last administered on 07/18/17 07:25; Start 07/06/17 at 09:00 Acetaminophen (Tylenol) 500 mg BID PO Last administered on 07/18/17 20:00; Start 07/06/17 at 09:00 Aspirin (Children'S Aspirin) 81 mg DAILY PO Last administered on 07/18/17 07: 26; Start 07/06/17 at 09:00 Atorvastatin Calcium (Lipitor) 20 mg QHS PO Last administered on 07/18/17 20: 00; Start 07/06/17 at 21:00 Carvedilol (Coreg) 3.125 mg BIDWMEALS PO Last administered on 07/18/17 17:10; Start 07/06/17 at 08:00 Clopidogrel Bisulfate (Plavix) 75 mg DAILY PO Last administered on 07/18/17 07 :25; Start 07/06/17 at 09:00 Finasteride (Proscar) 5 mg DAILY PO Last administered on 07/18/17 07:26; Start 07/06/17 at 09:00 Furosemide (Lasix) 20 mg DAILY PO Last administered on 07/18/17 07:26; Start 07/06/17 at 09:00 Gabapentin (Neurontin) 300 mg QID PO Last administered on 07/18/17 20:00; Start 07/06/17 at 09:00 Guaifenesin (Mucinex Er) 600 mg BID PO Last administered on 07/18/17 20:00; Start 07/06/17 at 09:00 Acetaminophen/ Hydrocodone Bitart (Lortab 5/325) 1 tab PRN Q6HRS PRN PO PAIN Last administered on 07/18/17 05:17; Start 07/06/17 at 02:00 Insulin Aspart (NovoLOG) 18 units TIDBFRMEAL SQ Last administered on 07/18/17 12:12; Start 07/06/17 at 07:30 Albuterol Sulfate (Ventolin) 2.5 mg PRN Q4HRS PRN NEB SHORTNESS OF BREATH Last administered on 07/08/17 11:27; Start 07/06/17 at 02:15 Albuterol/ Ipratropium (Duoneb) 3 ml Q4HRS NEB Last administered on 07/18/17 15:23; Start 07/06/17 at 04:00 Lisinopril (Prinivil) 5 mg DAILY PO Last administered on 07/18/17 07:26; Start 07/06/17 at 09:00 Multi-Ingredient Ointment (Analgesic [place]) 1 rosey TID TP Last administered on 20:01; Start 07/06/17 at 09:00 Multi-Ingred Cream/Lotion/Oil/ Oint (Hydrocerin) 1 rosey PRN TID PRN TP DRY SKIN / SCALING; Start 07/06/17 at 02:00 Tamsulosin HCl (Flomax) 0.4 mg HS PO Last administered on 07/18/17 20:00; Start 07/06/17 at 21:00 Insulin Detemir (Levemir) 70 units QHS SQ Last administered on 07/18/17 20:04 ; Start 07/06/17 at 21:00 Cetirizine HCl (ZyrTEC) 10 mg DAILY PO Last administered on 07/18/17 07:26; Start 07/06/17 at 09:00 Metformin HCl (Glucophage) 1,000 mg BIDWMEALS PO Last administered on 17:10; Start 07/06/17 at 08:00 Potassium Chloride (Klor-Con) 10 meq DAILYWBKFT PO Last administered on 07:27; Start 07/06/17 at 08:00 Non-Formulary Medication (Umeclidinium Brm/Vilanterol Tr (Anoro Ellipta 62.5-25 Mcg Inh)) 1 puff DAILY IH ; Start 07/06/17 at 09:00; Status UNV Citalopram Hydrobromide (CeleXA) 10 mg DAILY PO Last administered on 07/18/17 07:26; Start 07/06/17 at 09:00 Pneumococcal Polyvalent Vaccine (Pneumovax 23) 0.5 ml ONCE ONCE VAX IM Last administered on 07/06/17at 10:40; Start 07/06/17 at 09:00; Stop 07/06/17 at 09:01 ; Status DC Nystatin (Nystop) 1 rosey BID TP Last administered on 07/18/17at 20:01; Start at 09:00 Divalproex Sodium (Depakote Sprinkles) 500 mg TID PO Last administered on at 12:32; Start 07/07/17 at 21:00; Stop 07/10/17 at 18:32; Status DC Trazodone HCl (Desyrel) 100 mg QHS PO Last administered on 07/18/17at 20:00; Start 07/07/17 at 21:00 Trazodone HCl (Desyrel) 100 mg PRN QHS PRN PO prn insomnia; Start 07/07/17 at 21:00 Olanzapine (ZyPREXA ZYDIS) 5 mg PRN Q2HR PRN PO ANXIETY / AGITATION Last administered on 07/08/17at 11:32; Start 07/08/17 at 11:00 Divalproex Sodium (Depakote Sprinkles) 625 mg TID PO Last administered on at 08:33; Start 07/10/17 at 21:00; Stop 07/13/17 at 10:55; Status DC Quetiapine Fumarate (SEROquel) 12.5 mg TID@0900,1300,1700 PO Last administered on 07/12/17at 17:23; Start 07/11/17 at 09:00; Stop 07/12/17 at 18:28; Status DC Quetiapine Fumarate (SEROquel) 25 mg TID@0900,1300,1700 PO Last administered on 07/18/17at 17:10; Start 07/13/17 at 09:00 Divalproex Sodium (Depakote Sprinkles) 750 mg TID PO Last administered on at 12:13; Start 07/13/17 at 14:00; Stop 07/17/17 at 18:48; Status DC Divalproex Sodium (Depakote Sprinkles) 875 mg TID PO Last administered on at 20:00; Start 07/17/17 at 21:00 Active Scripts Active Reported Depakote Sprinkle (Divalproex Sodium) 125 Mg Cap.sprink 500 Mg PO HS Duoneb 0.5-3(2.5) Mg/3 Ml (Albuterol/Ipratropium) 3 Ml Ampul.neb 3 Ml NEB PRN Q4HRS PRN Eucerin Creme (Mineral Oil/Petrolatum,White) 120 Gm Cream..g. 1 Rosey TP PRN TID PRN Tamsulosin Hcl 0.4 Mg Cap.er.24h 0.4 Mg PO HS Potassium Chloride 10 Meq Tablet.er 10 Meq PO DAILY Novolog Flexpen (Insulin Aspart) 100 Unit/1 Ml Insuln.pen 18 Units SQ TIDBFRMEAL Analgesic [place] (Methyl Salicylate/Menthol) 28 Gm Oint...g. 1 Rosey TP TID Mucinex (Guaifenesin) 600 Mg Tablet.er 600 Mg PO BID Metformin Hcl 1,000 Mg Tablet 1,000 Mg PO BIDWMEALS Namenda (Memantine Hcl) 10 Mg Tablet 10 Mg PO BID Loratadine 10 Mg Tablet 10 Mg PO DAILY Lisinopril 5 Mg Tablet 5 Mg PO DAILY Duoneb 0.5-3(2.5) Mg/3 Ml (Albuterol/Ipratropium) 3 Ml Ampul.neb 3 Ml NEB Q4HRS Hydrocodone-Apap 5-325 (Hydrocodone Bit/Acetaminophen) 1 Each Tablet 1 Tab PO Q6HRS PRN Furosemide 20 Mg Tablet 20 Mg PO DAILY Finasteride 5 Mg Tablet 5 Mg PO DAILY EXELON 9.5mg/24hr (Rivastigmine) 1 Each Patch.td24 1 Patch TD DAILY Escitalopram Oxalate 5 Mg Tablet 5 Mg PO DAILY Depakote Sprinkle (Divalproex Sodium) 125 Mg Cap.sprink 250 Mg PO BID Clopidogrel (Clopidogrel Bisulfate) 75 Mg Tablet 75 Mg PO DAILY Carvedilol 3.125 Mg Tablet 3.125 Mg PO BIDWMEALS Atorvastatin Calcium 20 Mg Tablet 20 Mg PO QHS Anoro Ellipta 62.5-25 Mcg Inh (Umeclidinium Brm/Vilanterol Tr) 1 Each Disk.w.dev 1 Puff IH DAILY Acetaminophen 500 Mg Tablet 500 Mg PO BID Gabapentin 300 Mg Capsule 300 Mg PO QID Aspirin 81 Mg Tab.chew 81 Mg PO DAILY Lantus Solostar (Insulin Glargine,Hum.rec.anlog) 100 Unit/1 Ml Insuln.pen 70 Unit SQ QHS I have reviewed the current psychotropics carefully including drug interactions. Risk benefit ratio favors no change other than as noted in my dictated progress note. Diagnosis: Problems: (1) Paranoid behavior (2) Alcohol-induced persisting dementia (3) Anxiety disorder (4) Impulse control disorder (5) Alcoholic psychosis (6) Dementia, vascular, with delusions SAMMY QUICK MD Jul 18, 2017 20:49
[2017-07-19] MEDS: HYDROcodone/APAP 5/325MG 1 TAB TABLET PO PRN (02:05)
[2017-07-19] MEDS: IPRATRPIUM/ALBUTEROL 0.5/2.5MG 3 ML NEBU. NEB SCH ×5 (05:54→22:33)
[2017-07-19 05:59] VITALS: BP 124/42
[2017-07-19] MEDS: INSULIN ASPART 300 UNITS/3 ML INSULN.PEN SQ SCH ×3 (07:30→16:30)
[2017-07-19] MEDS: FINASTERIDE 5 MG TABLET PO SCH (08:03)
[2017-07-19] MEDS: CLOPIDOGREL BISULFATE 75 MG TABLET PO SCH (08:03)
[2017-07-19] MEDS: CETIRIZINE HCL 10 MG TABLET PO SCH (08:03)
[2017-07-19] MEDS: FUROSEMIDE 20 MG TABLET PO SCH (08:03)
[2017-07-19] MEDS: CITALOPRAM 10 MG TABLET. PO SCH (08:04)
[2017-07-19] MEDS: POTASSIUM CHLORIDE 10 MEQ TABLET.ER. PO SCH (08:04)
[2017-07-19] MEDS: ACETAMINOPHEN 500 MG TABLET PO SCH ×2 (08:04→20:09)
[2017-07-19] MEDS: MEMANTINE 10 MG TABLET. PO SCH ×2 (08:04→20:09)
[2017-07-19] MEDS: GABAPENTIN 300 MG CAPSULE. PO SCH ×4 (08:04→20:10)
[2017-07-19] MEDS: metFORMIN 500 MG TABLET PO SCH ×2 (08:04→17:17)
[2017-07-19] MEDS: ASPIRIN 81 MG TAB.CHEW PO SCH (08:04)
[2017-07-19] MEDS: QUEtiapine 25 MG TABLET. PO SCH ×3 (08:04→17:19)
[2017-07-19] MEDS: DIVALPROEX 125 MG CAP.SPRINK PO SCH ×3 (08:06→20:09)
[2017-07-19] MEDS: NICOTINE 21MG PATCH. TD SCH (08:07)
[2017-07-19] MEDS: RIVASTIGMINE 9.5MG PATCH. TD SCH (08:07)
[2017-07-19] MEDS: CARVEDILOL 3.125 MG TABLET PO SCH ×2 (08:08→17:18)
[2017-07-19] MEDS: NYSTATIN TOPICAL POWDER 15GM BOTTLE. TP SCH ×2 (08:10→20:11)
[2017-07-19] MEDS: METHYL SALICYLATE/MENTHOL TOPICAL OINTMENT 29GM TUBE. TP SCH ×4 (08:10→20:11)
[2017-07-19] MEDS: LISINOPRIL 5 MG TABLET. PO SCH (08:11)
--- NOTE | 2017-07-19 13:50 | PN ---
DATE: 07/18/2017 PSYCHIATRIC PROGRESS NOTE This is a late entry 07/18/2017, covers elements not covered in my initial note 07/18/2017. SUBJECTIVE: I met with the patient evening of 07/18/2017. The patient slept hours previous evening, had a good day, less agitated, pleasant in the shower, saying please and thank you to nursing staff, no urinating on the floor. Oxygen desaturation studies showed O2 sat at 94%. I will defer any BiPAP usage to Dr. Cruz. REVIEW OF SYSTEMS: Ambulation impaired with walker. No CV, , pulmonary, eye, ENT system symptoms on review. MENTAL STATUS EXAM: Oriented to himself and situation. Speech coherent, less pressured. Abstraction fair, computation impaired, language function intact, attention span short. Mood and affect less labile, still somewhat anxious. 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 Rest unchanged. PLAN: Continue current psychotropics mentioned in my initial note. MAN Francoise QUICK MD DR: RIED/elvia JOB#: [id number] / [id number]
[2017-07-19 16:26] VITALS: BP 149/58
[2017-07-19] MEDS: traZODone 100 MG TABLET. PO SCH (20:09)
[2017-07-19] MEDS: ATORVASTATIN CALCIUM 20 MG TABLET PO SCH (20:09)
[2017-07-19] MEDS: TAMSULOSIN 0.4 MG CAP.ER.24H. PO SCH (20:10)
[2017-07-19] MEDS: INSULIN DETEMIR 300 UNITS/3 ML INSULN.PEN. SQ SCH (20:12)
--- NOTE | 2017-07-19 20:57 | PDOC ---
Exam Note: Rober Note: Please also refer to the separate dictated note~for this date of service dictated separately.~Patient seen individually. Discussed the patient with Nursing staff reviewed the chart.~Reviewed interim history and current functioning. Reviewed vital signs,~Labs/ Radiology~and current medications noted below. Continue current treatment with the changes noted in the dictated addendum note Assessment: Vital Signs: Vital Signs Date Time Temp Pulse Resp B/P (MAP) Pulse Ox O2 Delivery O2 Flow Rate FiO2 07/19/17 17:18 81 149/58 07/19/17 16:26 97.9 19 96 07/19/17 15:29 Room Air I&O Intake and Output 07/19/17 07:00 Intake Total 720 ml Balance 720 ml Intake Oral 720 ml # Bowel Movements 1 Labs: Laboratory Tests Test 07/19/17 02:03 07/19/17 07:13 07/19/17 11:05 07/19/17 16:53 Glucose (Fingerstick) 130 mg/dL (70-99) H 83 mg/dL (70-99) 98 mg/dL (70-99) 135 mg/dL (70-99) H Test 07/19/17 19:18 Glucose (Fingerstick) 138 mg/dL (70-99) H Current Medications: Meds: Current Medications Acetaminophen (Tylenol) 650 mg PRN Q6HRS PRN PO PAIN / TEMP Last administered on 07/10/17at 17:52; Start 07/05/17 at 22:45 Multi-Ingredient Ointment (Analgesic [place]) 1 rosey PRN QID PRN TP MUSCLE PAIN; Start 07/05/17 at 22:45 Al Hydroxide/Mg Hydroxide (Mylanta Plus Xs) 15 ml PRN AFTMEALHC PRN PO DYSPEPSIA; Start 07/05/17 at 22:45 Magnesium Hydroxide (Milk Of Magnesia) 2,400 mg PRN QHS PRN PO CONSTIPATION Last administered on 07/18/17at 12:39; Start 07/05/17 at 22:45 Nicotine (Nicoderm Cq 21mg) 1 patch DAILY TD Last administered on 07/19/17at 08: 07; Start 07/06/17 at 09:00 Divalproex Sodium (Depakote Sprinkles) 250 mg BID94 PO Last administered on at 16:36; Start 07/06/17 at 09:00; Stop 07/07/17 at 18:23; Status DC Divalproex Sodium (Depakote Sprinkles) 500 mg HS PO Last administered on 21:25; Start 07/06/17 at 21:00; Stop 07/07/17 at 18:23; Status DC Memantine (Namenda) 10 mg BID PO Last administered on 07/19/17 20:09; Start at 09:00 Rivastigmine (Exelon) 1 patch DAILY TD Last administered on 07/19/17 08:07; Start 07/06/17 at 09:00 Acetaminophen (Tylenol) 500 mg BID PO Last administered on 07/19/17 20:09; Start 07/06/17 at 09:00 Aspirin (Children'S Aspirin) 81 mg DAILY PO Last administered on 07/19/17 08: 04; Start 07/06/17 at 09:00 Atorvastatin Calcium (Lipitor) 20 mg QHS PO Last administered on 07/19/17 20: 09; Start 07/06/17 at 21:00 Carvedilol (Coreg) 3.125 mg BIDWMEALS PO Last administered on 07/19/17 17:18; Start 07/06/17 at 08:00 Clopidogrel Bisulfate (Plavix) 75 mg DAILY PO Last administered on 07/19/17 08 :03; Start 07/06/17 at 09:00 Finasteride (Proscar) 5 mg DAILY PO Last administered on 07/19/17 08:03; Start 07/06/17 at 09:00 Furosemide (Lasix) 20 mg DAILY PO Last administered on 07/19/17 08:03; Start 07/06/17 at 09:00 Gabapentin (Neurontin) 300 mg QID PO Last administered on 07/19/17 20:10; Start 07/06/17 at 09:00 Guaifenesin (Mucinex Er) 600 mg BID PO Last administered on 07/19/17 20:10; Start 07/06/17 at 09:00 Acetaminophen/ Hydrocodone Bitart (Lortab 5/325) 1 tab PRN Q6HRS PRN PO PAIN Last administered on 07/18/17 05:17; Start 07/06/17 at 02:00 Insulin Aspart (NovoLOG) 18 units TIDBFRMEAL SQ Last administered on 07/18/17 12:12; Start 07/06/17 at 07:30 Albuterol Sulfate (Ventolin) 2.5 mg PRN Q4HRS PRN NEB SHORTNESS OF BREATH Last administered on 07/08/17 11:27; Start 07/06/17 at 02:15 Albuterol/ Ipratropium (Duoneb) 3 ml Q4HRS NEB Last administered on 07/19/17 15:29; Start 07/06/17 at 04:00 Lisinopril (Prinivil) 5 mg DAILY PO Last administered on 07/19/17 08:11; Start 07/06/17 at 09:00 Multi-Ingredient Ointment (Analgesic [place]) 1 rosey TID TP Last administered on 20:11; Start 07/06/17 at 09:00 Multi-Ingred Cream/Lotion/Oil/ Oint (Hydrocerin) 1 rosey PRN TID PRN TP DRY SKIN / SCALING; Start 07/06/17 at 02:00 Tamsulosin HCl (Flomax) 0.4 mg HS PO Last administered on 07/19/17 20:10; Start 07/06/17 at 21:00 Insulin Detemir (Levemir) 70 units QHS SQ Last administered on 07/19/17 20:12 ; Start 07/06/17 at 21:00 Cetirizine HCl (ZyrTEC) 10 mg DAILY PO Last administered on 07/19/17 08:03; Start 07/06/17 at 09:00 Metformin HCl (Glucophage) 1,000 mg BIDWMEALS PO Last administered on 17:17; Start 07/06/17 at 08:00 Potassium Chloride (Klor-Con) 10 meq DAILYWBKFT PO Last administered on 08:04; Start 07/06/17 at 08:00 Non-Formulary Medication (Umeclidinium Brm/Vilanterol Tr (Anoro Ellipta 62.5-25 Mcg Inh)) 1 puff DAILY IH ; Start 07/06/17 at 09:00; Status UNV Citalopram Hydrobromide (CeleXA) 10 mg DAILY PO Last administered on 07/19/17 08:04; Start 07/06/17 at 09:00 Pneumococcal Polyvalent Vaccine (Pneumovax 23) 0.5 ml ONCE ONCE VAX IM Last administered on 07/06/17 10:40; Start 07/06/17 at 09:00; Stop 07/06/17 at 09:01 ; Status DC Nystatin (Nystop) 1 rosey BID TP Last administered on 07/19/17 20:11; Start at 09:00 Divalproex Sodium (Depakote Sprinkles) 500 mg TID PO Last administered on 12:32; Start 07/07/17 at 21:00; Stop 07/10/17 at 18:32; Status DC Trazodone HCl (Desyrel) 100 mg QHS PO Last administered on 07/19/17 20:09; Start 07/07/17 at 21:00 Trazodone HCl (Desyrel) 100 mg PRN QHS PRN PO prn insomnia; Start 07/07/17 at 21:00 Olanzapine (ZyPREXA ZYDIS) 5 mg PRN Q2HR PRN PO ANXIETY / AGITATION Last administered on 07/08/17at 11:32; Start 07/08/17 at 11:00 Divalproex Sodium (Depakote Sprinkles) 625 mg TID PO Last administered on at 08:33; Start 07/10/17 at 21:00; Stop 07/13/17 at 10:55; Status DC Quetiapine Fumarate (SEROquel) 12.5 mg TID@0900,1300,1700 PO Last administered on 07/12/17 17:23; Start 07/11/17 at 09:00; Stop 07/12/17 at 18:28; Status DC Quetiapine Fumarate (SEROquel) 25 mg TID@0900,1300,1700 PO Last administered on 07/19/17at 17:19; Start 07/13/17 at 09:00 Divalproex Sodium (Depakote Sprinkles) 750 mg TID PO Last administered on at 12:13; Start 07/13/17 at 14:00; Stop 07/17/17 at 18:48; Status DC Divalproex Sodium (Depakote Sprinkles) 875 mg TID PO Last administered on at 20:09; Start 07/17/17 at 21:00 Active Scripts Active Reported Depakote Sprinkle (Divalproex Sodium) 125 Mg Cap.sprink 500 Mg PO HS Duoneb 0.5-3(2.5) Mg/3 Ml (Albuterol/Ipratropium) 3 Ml Ampul.neb 3 Ml NEB PRN Q4HRS PRN Eucerin Creme (Mineral Oil/Petrolatum,White) 120 Gm Cream..g. 1 Rosey TP PRN TID PRN Tamsulosin Hcl 0.4 Mg Cap.er.24h 0.4 Mg PO HS Potassium Chloride 10 Meq Tablet.er 10 Meq PO DAILY Novolog Flexpen (Insulin Aspart) 100 Unit/1 Ml Insuln.pen 18 Units SQ TIDBFRMEAL Analgesic [place] (Methyl Salicylate/Menthol) 28 Gm Oint...g. 1 Rosey TP TID Mucinex (Guaifenesin) 600 Mg Tablet.er 600 Mg PO BID Metformin Hcl 1,000 Mg Tablet 1,000 Mg PO BIDWMEALS Namenda (Memantine Hcl) 10 Mg Tablet 10 Mg PO BID Loratadine 10 Mg Tablet 10 Mg PO DAILY Lisinopril 5 Mg Tablet 5 Mg PO DAILY Duoneb 0.5-3(2.5) Mg/3 Ml (Albuterol/Ipratropium) 3 Ml Ampul.neb 3 Ml NEB Q4HRS Hydrocodone-Apap 5-325 (Hydrocodone Bit/Acetaminophen) 1 Each Tablet 1 Tab PO Q6HRS PRN Furosemide 20 Mg Tablet 20 Mg PO DAILY Finasteride 5 Mg Tablet 5 Mg PO DAILY EXELON 9.5mg/24hr (Rivastigmine) 1 Each Patch.td24 1 Patch TD DAILY Escitalopram Oxalate 5 Mg Tablet 5 Mg PO DAILY Depakote Sprinkle (Divalproex Sodium) 125 Mg Cap.sprink 250 Mg PO BID Clopidogrel (Clopidogrel Bisulfate) 75 Mg Tablet 75 Mg PO DAILY Carvedilol 3.125 Mg Tablet 3.125 Mg PO BIDWMEALS Atorvastatin Calcium 20 Mg Tablet 20 Mg PO QHS Anoro Ellipta 62.5-25 Mcg Inh (Umeclidinium Brm/Vilanterol Tr) 1 Each Disk.w.dev 1 Puff IH DAILY Acetaminophen 500 Mg Tablet 500 Mg PO BID Gabapentin 300 Mg Capsule 300 Mg PO QID Aspirin 81 Mg Tab.chew 81 Mg PO DAILY Lantus Solostar (Insulin Glargine,Hum.rec.anlog) 100 Unit/1 Ml Insuln.pen 70 Unit SQ QHS I have reviewed the current psychotropics carefully including drug interactions. Risk benefit ratio favors no change other than as noted in my dictated progress note. Diagnosis: Problems: (1) Paranoid behavior (2) Alcohol-induced persisting dementia (3) Anxiety disorder (4) Impulse control disorder (5) Alcoholic psychosis (6) Dementia, vascular, with delusions SAMMY QUICK MD Jul 19, 2017 20:57
[2017-07-20 05:40] VITALS: BP 115/56
[2017-07-20] MEDS: IPRATRPIUM/ALBUTEROL 0.5/2.5MG 3 ML NEBU. NEB SCH ×6 (05:50→21:17)
[2017-07-20] MEDS: INSULIN ASPART 300 UNITS/3 ML INSULN.PEN SQ SCH ×2 (07:30→11:30)
[2017-07-20 08:02] LABS: BASO % 1 % (0-3); EOS # 0.2 x10^3/uL (0.0-0.7); EOS % 2 % (0-3); HEMATOCRIT 39.5 % (39.0-53.0); HEMOGLOBIN 13.3 g/dL (13.0-17.5); LYMPH # 3.6 x10^3/uL (1.0-4.8); LYMPH % 41 % (24-48); MEAN CORPUSCULAR HEMOGLOBIN 31 pg (25-35); MEAN CORPUSCULAR HGB CONC 34 g/dL (31-37); MEAN CORPUSCULAR VOLUME 91 fL (79-100); MONO # 0.7 x10^3/uL (0.0-1.1); MONO % 8 % (0-9); NEUT # 4.3 x10^3uL (1.8-7.7); NEUT % 49 % (31-73); PLATELET COUNT 175 x10^3/uL (140-400); RED BLOOD COUNT 4.34 x10^6/uL (4.30-5.70); RED CELL DISTRIBUTION WIDTH 15.2 % (11.5-14.5); WHITE BLOOD COUNT 8.9 x10^3/uL (4.0-11.0)
[2017-07-20] MEDS: ACETAMINOPHEN 500 MG TABLET PO SCH ×2 (08:06→19:52)
[2017-07-20] MEDS: DIVALPROEX 125 MG CAP.SPRINK PO SCH ×3 (08:06→19:51)
[2017-07-20] MEDS: FUROSEMIDE 20 MG TABLET PO SCH (08:06)
[2017-07-20] MEDS: CLOPIDOGREL BISULFATE 75 MG TABLET PO SCH (08:06)
[2017-07-20] MEDS: POTASSIUM CHLORIDE 10 MEQ TABLET.ER. PO SCH (08:06)
[2017-07-20] MEDS: GABAPENTIN 300 MG CAPSULE. PO SCH ×4 (08:06→19:52)
[2017-07-20 08:07] LABS: ALBUMIN 3.2 g/dL (3.4-5.0); ALBUMIN/GLOBULIN RATIO 0.7 (1.0-1.7); ALK PHOS 72 U/L (46-116); ALT (SGPT) 30 U/L (16-63); ANION GAP 11 (6-14); AST (SGOT) 26 U/L (15-37); BLOOD UREA NITROGEN 24 mg/dL (8-26); BUN/CREATININE RATIO 20 (6-20); CALCIUM 9.4 mg/dL (8.5-10.1); CARBON DIOXIDE 27 mmol/L (21-32); CHLORIDE 104 mmol/L (98-107); CREATININE 1.2 mg/dL (0.7-1.3); GFR 58.7; GLUCOSE 109 mg/dL (70-99); POTASSIUM 4.5 mmol/L (3.5-5.1); SODIUM 142 mmol/L (136-145); TOTAL BILIRUBIN 0.2 mg/dL (0.2-1.0); TOTAL PROTEIN 7.6 g/dL (6.4-8.2)
[2017-07-20] MEDS: LISINOPRIL 5 MG TABLET. PO SCH (08:07)
[2017-07-20] MEDS: metFORMIN 500 MG TABLET PO SCH ×2 (08:07→17:09)
[2017-07-20] MEDS: FINASTERIDE 5 MG TABLET PO SCH (08:08)
[2017-07-20] MEDS: ASPIRIN 81 MG TAB.CHEW PO SCH (08:08)
[2017-07-20] MEDS: MEMANTINE 10 MG TABLET. PO SCH ×2 (08:08→19:52)
[2017-07-20] MEDS: QUEtiapine 25 MG TABLET. PO SCH ×3 (08:08→17:09)
[2017-07-20] MEDS: CETIRIZINE HCL 10 MG TABLET PO SCH (08:08)
[2017-07-20] MEDS: CARVEDILOL 3.125 MG TABLET PO SCH ×2 (08:08→17:09)
[2017-07-20] MEDS: CITALOPRAM 10 MG TABLET. PO SCH (08:08)
[2017-07-20 08:09] LABS: VAL ACID 64 mcg/mL (50-100)
[2017-07-20] MEDS: NYSTATIN TOPICAL POWDER 15GM BOTTLE. TP SCH ×2 (08:09→19:54)
[2017-07-20] MEDS: METHYL SALICYLATE/MENTHOL TOPICAL OINTMENT 29GM TUBE. TP SCH ×3 (08:09→19:54)
[2017-07-20] MEDS: RIVASTIGMINE 9.5MG PATCH. TD SCH (08:09)
[2017-07-20] MEDS: NICOTINE 21MG PATCH. TD SCH (08:09)
[2017-07-20 16:01] VITALS: BP 122/67
[2017-07-20] MEDS: ATORVASTATIN CALCIUM 20 MG TABLET PO SCH (19:52)
[2017-07-20] MEDS: TAMSULOSIN 0.4 MG CAP.ER.24H. PO SCH (19:52)
[2017-07-20] MEDS: traZODone 100 MG TABLET. PO SCH (19:53)
--- NOTE | 2017-07-20 20:48 | PDOC ---
Exam Note: Rober Note: Please also refer to the separate dictated note~for this date of service dictated separately.~Patient seen individually. Discussed the patient with Nursing staff reviewed the chart.~Reviewed interim history and current functioning. Reviewed vital signs,~Labs/ Radiology~and current medications noted below. Continue current treatment with the changes noted in the dictated addendum note Assessment: Vital Signs: Vital Signs Date Time Temp Pulse Resp B/P (MAP) Pulse Ox O2 Delivery O2 Flow Rate FiO2 07/20/17 17:09 82 122/67 07/20/17 16:17 95 Room Air 07/20/17 16:01 97.7 18 I&O Intake and Output 07/20/17 07:00 Intake Total 1080 ml Balance 1080 ml Intake Oral 1080 ml Labs: Laboratory Tests Test 07/20/17 07:28 07/20/17 07:37 07/20/17 11:20 07/20/17 16:52 White Blood Count 8.9 x10^3/uL (4.0-11.0) Red Blood Count 4.34 x10^6/uL (4.30-5.70) Hemoglobin 13.3 g/dL (13.0-17.5) Hematocrit 39.5 % (39.0-53.0) Mean Corpuscular Volume 91 fL (79-100) Mean Corpuscular Hemoglobin 31 pg (25-35) Mean Corpuscular Hemoglobin Concent 34 g/dL (31-37) Red Cell Distribution Width 15.2 % (11.5-14.5) H Platelet Count 175 x10^3/uL (140-400) Neutrophils (%) (Auto) 49 % (31-73) Lymphocytes (%) (Auto) 41 % (24-48) Monocytes (%) (Auto) 8 % (0-9) Eosinophils (%) (Auto) 2 % (0-3) Basophils (%) (Auto) 1 % (0-3) Neutrophils # (Auto) 4.3 x10^3uL (1.8-7.7) Lymphocytes # (Auto) 3.6 x10^3/uL (1.0-4.8) Monocytes # (Auto) 0.7 x10^3/uL (0.0-1.1) Eosinophils # (Auto) 0.2 x10^3/uL (0.0-0.7) Basophils # (Auto) 0.0 x10^3/uL (0.0-0.2) Sodium Level 142 mmol/L (136-145) Potassium Level 4.5 mmol/L (3.5-5.1) Chloride Level 104 mmol/L (98-107) Carbon Dioxide Level 27 mmol/L (21-32) Anion Gap 11 (6-14) Blood Urea Nitrogen 24 mg/dL (8-26) Creatinine 1.2 mg/dL (0.7-1.3) Estimated GFR (Cockcroft-Gault) 58.7 BUN/Creatinine Ratio 20 (6-20) Glucose Level 109 mg/dL (70-99) H Calcium Level 9.4 mg/dL (8.5-10.1) Total Bilirubin 0.2 mg/dL (0.2-1.0) Aspartate Amino Transferase (AST) 26 U/L (15-37) Alanine Aminotransferase (ALT) 30 U/L (16-63) Alkaline Phosphatase 72 U/L (46-116) Total Protein 7.6 g/dL (6.4-8.2) Albumin 3.2 g/dL (3.4-5.0) L Albumin/Globulin Ratio 0.7 (1.0-1.7) L Valproic Acid Level 64 mcg/mL (50-100) Valproic Acid Last Dose Date 07/19/17 Valproic Acid Last Dose Time 2100 Glucose (Fingerstick) 104 mg/dL (70-99) H 124 mg/dL (70-99) H 98 mg/dL (70-99) Test 07/20/17 19:06 Glucose (Fingerstick) 144 mg/dL (70-99) H Current Medications: Meds: Current Medications Acetaminophen (Tylenol) 650 mg PRN Q6HRS PRN PO PAIN / TEMP Last administered on 07/10/17at 17:52; Start 07/05/17 at 22:45 Multi-Ingredient Ointment (Analgesic Derwood) 1 rosey PRN QID PRN TP MUSCLE PAIN; Start 07/05/17 at 22:45 Al Hydroxide/Mg Hydroxide (Mylanta Plus Xs) 15 ml PRN AFTMEALHC PRN PO DYSPEPSIA; Start 07/05/17 at 22:45 Magnesium Hydroxide (Milk Of Magnesia) 2,400 mg PRN QHS PRN PO CONSTIPATION Last administered on 07/18/17 12:39; Start 07/05/17 at 22:45 Nicotine (Nicoderm Cq 21mg) 1 patch DAILY TD Last administered on 07/20/17 08: 09; Start 07/06/17 at 09:00 Divalproex Sodium (Depakote Sprinkles) 250 mg BID94 PO Last administered on 16:36; Start 07/06/17 at 09:00; Stop 07/07/17 at 18:23; Status DC Divalproex Sodium (Depakote Sprinkles) 500 mg HS PO Last administered on 21:25; Start 07/06/17 at 21:00; Stop 07/07/17 at 18:23; Status DC Memantine (Namenda) 10 mg BID PO Last administered on 07/20/17 19:52; Start at 09:00 Rivastigmine (Exelon) 1 patch DAILY TD Last administered on 07/20/17 08:09; Start 07/06/17 at 09:00 Acetaminophen (Tylenol) 500 mg BID PO Last administered on 07/20/17 19:52; Start 07/06/17 at 09:00 Aspirin (Children'S Aspirin) 81 mg DAILY PO Last administered on 07/20/17 08: 08; Start 07/06/17 at 09:00 Atorvastatin Calcium (Lipitor) 20 mg QHS PO Last administered on 07/20/17 19: 52; Start 07/06/17 at 21:00 Carvedilol (Coreg) 3.125 mg BIDWMEALS PO Last administered on 07/20/17 17:09; Start 07/06/17 at 08:00 Clopidogrel Bisulfate (Plavix) 75 mg DAILY PO Last administered on 07/20/17 08 :06; Start 07/06/17 at 09:00 Finasteride (Proscar) 5 mg DAILY PO Last administered on 07/20/17 08:08; Start 07/06/17 at 09:00 Furosemide (Lasix) 20 mg DAILY PO Last administered on 07/20/17 08:06; Start 07/06/17 at 09:00 Gabapentin (Neurontin) 300 mg QID PO Last administered on 07/20/17 19:52; Start 07/06/17 at 09:00 Guaifenesin (Mucinex Er) 600 mg BID PO Last administered on 07/20/17 19:53; Start 07/06/17 at 09:00 Acetaminophen/ Hydrocodone Bitart (Lortab 5/325) 1 tab PRN Q6HRS PRN PO PAIN Last administered on 07/18/17 05:17; Start 07/06/17 at 02:00 Insulin Aspart (NovoLOG) 18 units TIDBFRMEAL SQ Last administered on 07/18/17 12:12; Start 07/06/17 at 07:30; Stop 07/20/17 at 16:33; Status DC Albuterol Sulfate (Ventolin) 2.5 mg PRN Q4HRS PRN NEB SHORTNESS OF BREATH Last administered on 07/08/17 11:27; Start 07/06/17 at 02:15 Albuterol/ Ipratropium (Duoneb) 3 ml Q4HRS NEB Last administered on 07/20/17 16:16; Start 07/06/17 at 04:00 Lisinopril (Prinivil) 5 mg DAILY PO Last administered on 07/20/17 08:07; Start 07/06/17 at 09:00 Multi-Ingredient Ointment (Analgesic Derwood) 1 rosey TID TP Last administered on 19:54; Start 07/06/17 at 09:00 Multi-Ingred Cream/Lotion/Oil/ Oint (Hydrocerin) 1 rosey PRN TID PRN TP DRY SKIN / SCALING; Start 07/06/17 at 02:00 Tamsulosin HCl (Flomax) 0.4 mg HS PO Last administered on 07/20/17 19:52; Start 07/06/17 at 21:00 Insulin Detemir (Levemir) 70 units QHS SQ Last administered on 07/19/17 20:12 ; Start 07/06/17 at 21:00; Stop 07/20/17 at 16:33; Status DC Cetirizine HCl (ZyrTEC) 10 mg DAILY PO Last administered on 07/20/17 08:08; Start 07/06/17 at 09:00 Metformin HCl (Glucophage) 1,000 mg BIDWMEALS PO Last administered on 17:09; Start 07/06/17 at 08:00 Potassium Chloride (Klor-Con) 10 meq DAILYWBKFT PO Last administered on at 08:06; Start 07/06/17 at 08:00 Non-Formulary Medication (Umeclidinium Brm/Vilanterol Tr (Anoro Ellipta 62.5-25 Mcg Inh)) 1 puff DAILY IH ; Start 07/06/17 at 09:00; Status UNV Citalopram Hydrobromide (CeleXA) 10 mg DAILY PO Last administered on 07/20/17 08:08; Start 07/06/17 at 09:00 Pneumococcal Polyvalent Vaccine (Pneumovax 23) 0.5 ml ONCE ONCE VAX IM Last administered on 07/06/17at 10:40; Start 07/06/17 at 09:00; Stop 07/06/17 at 09:01 ; Status DC Nystatin (Nystop) 1 rosey BID TP Last administered on 07/20/17 19:54; Start at 09:00 Divalproex Sodium (Depakote Sprinkles) 500 mg TID PO Last administered on at 12:32; Start 07/07/17 at 21:00; Stop 07/10/17 at 18:32; Status DC Trazodone HCl (Desyrel) 100 mg QHS PO Last administered on 07/20/17 19:53; Start 07/07/17 at 21:00 Trazodone HCl (Desyrel) 100 mg PRN QHS PRN PO prn insomnia; Start 07/07/17 at 21:00 Olanzapine (ZyPREXA ZYDIS) 5 mg PRN Q2HR PRN PO ANXIETY / AGITATION Last administered on 07/08/17at 11:32; Start 07/08/17 at 11:00 Divalproex Sodium (Depakote Sprinkles) 625 mg TID PO Last administered on at 08:33; Start 07/10/17 at 21:00; Stop 07/13/17 at 10:55; Status DC Quetiapine Fumarate (SEROquel) 12.5 mg TID@0900,1300,1700 PO Last administered on 3/21/18at 17:23; Start 07/11/17 at 09:00; Stop 07/12/17 at 18:28; Status DC Quetiapine Fumarate (SEROquel) 25 mg TID@0900,1300,1700 PO Last administered on 07/20/17at 17:09; Start 07/13/17 at 09:00 Divalproex Sodium (Depakote Sprinkles) 750 mg TID PO Last administered on at 12:13; Start 07/13/17 at 14:00; Stop 07/17/17 at 18:48; Status DC Divalproex Sodium (Depakote Sprinkles) 875 mg TID PO Last administered on at 19:51; Start 07/17/17 at 21:00 Insulin Aspart (NovoLOG) 15 units TIDBFRMEAL SQ ; Start 07/21/17 at 07:30 Insulin Detemir (Levemir) 65 units QHS SQ Last administered on 07/20/17at 19:56 ; Start 07/20/17 at 21:00 Active Scripts Active Reported Depakote Sprinkle (Divalproex Sodium) 125 Mg Cap.sprink 500 Mg PO HS Duoneb 0.5-3(2.5) Mg/3 Ml (Albuterol/Ipratropium) 3 Ml Ampul.neb 3 Ml NEB PRN Q4HRS PRN Eucerin Creme (Mineral Oil/Petrolatum,White) 120 Gm Cream..g. 1 Rosey TP PRN TID PRN Tamsulosin Hcl 0.4 Mg Cap.er.24h 0.4 Mg PO HS Potassium Chloride 10 Meq Tablet.er 10 Meq PO DAILY Novolog Flexpen (Insulin Aspart) 100 Unit/1 Ml Insuln.pen 18 Units SQ TIDBFRMEAL Analgesic Derwood (Methyl Salicylate/Menthol) 28 Gm Oint...g. 1 Rosey TP TID Mucinex (Guaifenesin) 600 Mg Tablet.er 600 Mg PO BID Metformin Hcl 1,000 Mg Tablet 1,000 Mg PO BIDWMEALS Namenda (Memantine Hcl) 10 Mg Tablet 10 Mg PO BID Loratadine 10 Mg Tablet 10 Mg PO DAILY Lisinopril 5 Mg Tablet 5 Mg PO DAILY Duoneb 0.5-3(2.5) Mg/3 Ml (Albuterol/Ipratropium) 3 Ml Ampul.neb 3 Ml NEB Q4HRS Hydrocodone-Apap 5-325 (Hydrocodone Bit/Acetaminophen) 1 Each Tablet 1 Tab PO Q6HRS PRN Furosemide 20 Mg Tablet 20 Mg PO DAILY Finasteride 5 Mg Tablet 5 Mg PO DAILY EXELON 9.5mg/24hr (Rivastigmine) 1 Each Patch.td24 1 Patch TD DAILY Escitalopram Oxalate 5 Mg Tablet 5 Mg PO DAILY Depakote Sprinkle (Divalproex Sodium) 125 Mg Cap.sprink 250 Mg PO BID Clopidogrel (Clopidogrel Bisulfate) 75 Mg Tablet 75 Mg PO DAILY Carvedilol 3.125 Mg Tablet 3.125 Mg PO BIDWMEALS Atorvastatin Calcium 20 Mg Tablet 20 Mg PO QHS Anoro Ellipta 62.5-25 Mcg Inh (Umeclidinium Brm/Vilanterol Tr) 1 Each Disk.w.dev 1 Puff IH DAILY Acetaminophen 500 Mg Tablet 500 Mg PO BID Gabapentin 300 Mg Capsule 300 Mg PO QID Aspirin 81 Mg Tab.chew 81 Mg PO DAILY Lantus Solostar (Insulin Glargine,Hum.rec.anlog) 100 Unit/1 Ml Insuln.pen 70 Unit SQ QHS I have reviewed the current psychotropics carefully including drug interactions. Risk benefit ratio favors no change other than as noted in my dictated progress note. Diagnosis: Problems: (1) Paranoid behavior (2) Alcohol-induced persisting dementia (3) Anxiety disorder (4) Impulse control disorder (5) Alcoholic psychosis (6) Dementia, vascular, with delusions SAMMY QUICK MD Jul 20, 2017 20:48
[2017-07-20] MEDS ORDERED: INSULIN DETEMIR 300 UNITS/3 ML INSULN.PEN. SQ SCH (21:00)
[2017-07-21] MEDS ORDERED: ACET325T9 PO (01:23)
[2017-07-21] MEDS ORDERED: MAG30ORA2 PO (01:48)
[2017-07-21] MEDS ORDERED: MAGN400O7 PO (01:49)
[2017-07-21] MEDS ORDERED: METH29OI TP (01:52)
[2017-07-21] MEDS ORDERED: NICO1PAT21 TD (01:56)
[2017-07-21] MEDS ORDERED: NYST15OI TP (01:57)
[2017-07-21] MEDS ORDERED: OLAN5TAB9 PO (01:58)
[2017-07-21] MEDS ORDERED: QUET25TA5 PO (02:02)
[2017-07-21] MEDS ORDERED: TRAZ-90 PO ×2 (02:05)
[2017-07-21] MEDS: IPRATRPIUM/ALBUTEROL 0.5/2.5MG 3 ML NEBU. NEB SCH ×4 (05:53→10:30)
[2017-07-21 06:03] VITALS: BP 116/79
[2017-07-21] MEDS ORDERED: INSULIN ASPART 300 UNITS/3 ML INSULN.PEN SQ SCH (07:30)
[2017-07-21] MEDS: METHYL SALICYLATE/MENTHOL TOPICAL OINTMENT 29GM TUBE. TP SCH (09:00)
[2017-07-21] MEDS: DIVALPROEX 125 MG CAP.SPRINK PO SCH (09:14)
[2017-07-21] MEDS: metFORMIN 500 MG TABLET PO SCH (09:14)
[2017-07-21] MEDS: QUEtiapine 25 MG TABLET. PO SCH (09:15)
[2017-07-21] MEDS: FINASTERIDE 5 MG TABLET PO SCH (09:15)
[2017-07-21] MEDS: POTASSIUM CHLORIDE 10 MEQ TABLET.ER. PO SCH (09:15)
[2017-07-21] MEDS: CETIRIZINE HCL 10 MG TABLET PO SCH (09:15)
[2017-07-21] MEDS: CARVEDILOL 3.125 MG TABLET PO SCH (09:15)
[2017-07-21] MEDS: CLOPIDOGREL BISULFATE 75 MG TABLET PO SCH (09:15)
[2017-07-21 09:16] VITALS: BP 116/79
[2017-07-21] MEDS: ASPIRIN 81 MG TAB.CHEW PO SCH (09:16)
[2017-07-21] MEDS: CITALOPRAM 10 MG TABLET. PO SCH (09:16)
[2017-07-21] MEDS: FUROSEMIDE 20 MG TABLET PO SCH (09:16)
[2017-07-21] MEDS: GABAPENTIN 300 MG CAPSULE. PO SCH (09:16)
[2017-07-21] MEDS: ACETAMINOPHEN 500 MG TABLET PO SCH (09:16)
[2017-07-21] MEDS: LISINOPRIL 5 MG TABLET. PO SCH (09:16)
[2017-07-21] MEDS: MEMANTINE 10 MG TABLET. PO SCH (09:16)
[2017-07-21] MEDS: NICOTINE 21MG PATCH. TD SCH (09:17)
[2017-07-21] MEDS: RIVASTIGMINE 9.5MG PATCH. TD SCH (09:18)
[2017-07-21] MEDS: NYSTATIN TOPICAL POWDER 15GM BOTTLE. TP SCH (09:18)
--- NOTE | 2017-07-21 15:42 | PDOC ---
Exam Note: Rober Note: Please also refer to the separate dictated note~for this date of service dictated separately.~Patient seen individually. Discussed the patient with Nursing staff reviewed the chart.~Reviewed interim history and current functioning. Reviewed vital signs,~Labs/ Radiology~and current medications noted below. Continue current treatment with the changes noted in the dictated addendum note Assessment: Vital Signs: Vital Signs Date Time Temp Pulse Resp B/P (MAP) Pulse Ox O2 Delivery O2 Flow Rate FiO2 07/21/17 10:30 99 Room Air 07/21/17 09:16 84 116/79 07/21/17 06:03 98.2 20 I&O Intake and Output 07/21/17 07:00 Intake Total 1260 ml Balance 1260 ml Intake Oral 1260 ml # Voids 1 Labs: Laboratory Tests Test 07/20/17 16:52 07/20/17 19:06 07/21/17 07:23 Glucose (Fingerstick) 98 mg/dL (70-99) 144 mg/dL (70-99) H 103 mg/dL (70-99) H Current Medications: Meds: Current Medications Acetaminophen (Tylenol) 650 mg PRN Q6HRS PRN PO PAIN / TEMP Last administered on 07/10/17at 17:52; Start 07/05/17 at 22:45; Stop 07/21/17 at 12:28; Status DC Multi-Ingredient Ointment (Analgesic Chandler) 1 rosey PRN QID PRN TP MUSCLE PAIN; Start 07/05/17 at 22:45; Stop 07/21/17 at 12:28; Status DC Al Hydroxide/Mg Hydroxide (Mylanta Plus Xs) 15 ml PRN AFTMEALHC PRN PO DYSPEPSIA; Start 07/05/17 at 22:45; Stop 07/21/17 at 12:28; Status DC Magnesium Hydroxide (Milk Of Magnesia) 2,400 mg PRN QHS PRN PO CONSTIPATION Last administered on 07/18/17at 12:39; Start 07/05/17 at 22:45; Stop 07/21/17 at 12:28; Status DC Nicotine (Nicoderm Cq 21mg) 1 patch DAILY TD Last administered on 07/21/17at 09: 17; Start 07/06/17 at 09:00; Stop 07/21/17 at 12:28; Status DC Divalproex Sodium (Depakote Sprinkles) 250 mg BID94 PO Last administered on at 16:36; Start 07/06/17 at 09:00; Stop 07/07/17 at 18:23; Status DC Divalproex Sodium (Depakote Sprinkles) 500 mg HS PO Last administered on at 21:25; Start 07/06/17 at 21:00; Stop 07/07/17 at 18:23; Status DC Memantine (Namenda) 10 mg BID PO Last administered on 07/21/17at 09:16; Start at 09:00; Stop 07/21/17 at 12:28; Status DC Rivastigmine (Exelon) 1 patch DAILY TD Last administered on 07/21/17 09:18; Start 07/06/17 at 09:00; Stop 07/21/17 at 12:28; Status DC Acetaminophen (Tylenol) 500 mg BID PO Last administered on 07/21/17 09:16; Start 07/06/17 at 09:00; Stop 07/21/17 at 12:28; Status DC Aspirin (Children'S Aspirin) 81 mg DAILY PO Last administered on 07/21/17 09: 16; Start 07/06/17 at 09:00; Stop 07/21/17 at 12:28; Status DC Atorvastatin Calcium (Lipitor) 20 mg QHS PO Last administered on 07/20/17at 19: 52; Start 07/06/17 at 21:00; Stop 07/21/17 at 12:28; Status DC Carvedilol (Coreg) 3.125 mg BIDWMEALS PO Last administered on 07/21/17at 09:15; Start 07/06/17 at 08:00; Stop 07/21/17 at 12:28; Status DC Clopidogrel Bisulfate (Plavix) 75 mg DAILY PO Last administered on 07/21/17at 09 :15; Start 07/06/17 at 09:00; Stop 07/21/17 at 12:28; Status DC Finasteride (Proscar) 5 mg DAILY PO Last administered on 07/21/17at 09:15; Start 07/06/17 at 09:00; Stop 07/21/17 at 12:28; Status DC Furosemide (Lasix) 20 mg DAILY PO Last administered on 07/21/17 09:16; Start 07/06/17 at 09:00; Stop 07/21/17 at 12:28; Status DC Gabapentin (Neurontin) 300 mg QID PO Last administered on 07/21/17at 09:16; Start 07/06/17 at 09:00; Stop 07/21/17 at 12:28; Status DC Guaifenesin (Mucinex Er) 600 mg BID PO Last administered on 07/21/17 09:16; Start 07/06/17 at 09:00; Stop 07/21/17 at 12:28; Status DC Acetaminophen/ Hydrocodone Bitart (Lortab 5/325) 1 tab PRN Q6HRS PRN PO PAIN Last administered on 07/18/17at 05:17; Start 07/06/17 at 02:00; Stop 07/21/17 at 12:28; Status DC Insulin Aspart (NovoLOG) 18 units TIDBFRMEAL SQ Last administered on 07/18/17at 12:12; Start 07/06/17 at 07:30; Stop 07/20/17 at 16:33; Status DC Albuterol Sulfate (Ventolin) 2.5 mg PRN Q4HRS PRN NEB SHORTNESS OF BREATH Last administered on 07/08/17at 11:27; Start 07/06/17 at 02:15; Stop 07/21/17 at 12:28 ; Status DC Albuterol/ Ipratropium (Duoneb) 3 ml Q4HRS NEB Last administered on 07/21/17at 10:30; Start 07/06/17 at 04:00; Stop 07/21/17 at 12:28; Status DC Lisinopril (Prinivil) 5 mg DAILY PO Last administered on 07/21/17at 09:16; Start 07/06/17 at 09:00; Stop 07/21/17 at 12:28; Status DC Multi-Ingredient Ointment (Analgesic Chandler) 1 rosey TID TP Last administered on at 19:54; Start 07/06/17 at 09:00; Stop 07/21/17 at 12:28; Status DC Multi-Ingred Cream/Lotion/Oil/ Oint (Hydrocerin) 1 rosey PRN TID PRN TP DRY SKIN / SCALING; Start 07/06/17 at 02:00; Stop 07/21/17 at 12:28; Status DC Tamsulosin HCl (Flomax) 0.4 mg HS PO Last administered on 07/20/17at 19:52; Start 07/06/17 at 21:00; Stop 07/21/17 at 12:28; Status DC Insulin Detemir (Levemir) 70 units QHS SQ Last administered on 07/19/17at 20:12 ; Start 07/06/17 at 21:00; Stop 07/20/17 at 16:33; Status DC Cetirizine HCl (ZyrTEC) 10 mg DAILY PO Last administered on 07/21/17at 09:15; Start 07/06/17 at 09:00; Stop 07/21/17 at 12:28; Status DC Metformin HCl (Glucophage) 1,000 mg BIDWMEALS PO Last administered on at 09:14; Start 07/06/17 at 08:00; Stop 07/21/17 at 12:28; Status DC Potassium Chloride (Klor-Con) 10 meq DAILYWBKFT PO Last administered on at 09:15; Start 07/06/17 at 08:00; Stop 07/21/17 at 12:28; Status DC Non-Formulary Medication (Umeclidinium Brm/Vilanterol Tr (Anoro Ellipta 62.5-25 Mcg Inh)) 1 puff DAILY IH ; Start 07/06/17 at 09:00; Status UNV Citalopram Hydrobromide (CeleXA) 10 mg DAILY PO Last administered on 07/21/17at 09:16; Start 07/06/17 at 09:00; Stop 07/21/17 at 12:28; Status DC Pneumococcal Polyvalent Vaccine (Pneumovax 23) 0.5 ml ONCE ONCE VAX IM Last administered on 07/06/17at 10:40; Start 07/06/17 at 09:00; Stop 07/06/17 at 09:01 ; Status DC Nystatin (Nystop) 1 rosey BID TP Last administered on 07/21/17at 09:18; Start at 09:00; Stop 07/21/17 at 12:28; Status DC Divalproex Sodium (Depakote Sprinkles) 500 mg TID PO Last administered on at 12:32; Start 07/07/17 at 21:00; Stop 07/10/17 at 18:32; Status DC Trazodone HCl (Desyrel) 100 mg QHS PO Last administered on 07/20/17at 19:53; Start 07/07/17 at 21:00; Stop 07/21/17 at 12:28; Status DC Trazodone HCl (Desyrel) 100 mg PRN QHS PRN PO prn insomnia; Start 07/07/17 at 21:00; Stop 07/21/17 at 12:28; Status DC Olanzapine (ZyPREXA ZYDIS) 5 mg PRN Q2HR PRN PO ANXIETY / AGITATION Last administered on 07/08/17at 11:32; Start 07/08/17 at 11:00; Stop 07/21/17 at 12:28 ; Status DC Divalproex Sodium (Depakote Sprinkles) 625 mg TID PO Last administered on at 08:33; Start 07/10/17 at 21:00; Stop 07/13/17 at 10:55; Status DC Quetiapine Fumarate (SEROquel) 12.5 mg TID@0900,1300,1700 PO Last administered on 07/12/17at 17:23; Start 07/11/17 at 09:00; Stop 07/12/17 at 18:28; Status DC Quetiapine Fumarate (SEROquel) 25 mg TID@0900,1300,1700 PO Last administered on 07/21/17at 09:15; Start 07/13/17 at 09:00; Stop 07/21/17 at 12:28; Status DC Divalproex Sodium (Depakote Sprinkles) 750 mg TID PO Last administered on at 12:13; Start 07/13/17 at 14:00; Stop 07/17/17 at 18:48; Status DC Divalproex Sodium (Depakote Sprinkles) 875 mg TID PO Last administered on at 09:14; Start 07/17/17 at 21:00; Stop 07/21/17 at 12:28; Status DC Insulin Aspart (NovoLOG) 15 units TIDBFRMEAL SQ ; Start 07/21/17 at 07:30; Stop 07/21/17 at 12:28; Status DC Insulin Detemir (Levemir) 65 units QHS SQ Last administered on 07/20/17at 19:56 ; Start 07/20/17 at 21:00; Stop 07/21/17 at 12:28; Status DC Active Scripts Active Reported Trazodone Hcl 100 Mg Tablet 100 Mg PO PRN QHS PRN Trazodone Hcl 100 Mg Tablet 100 Mg PO QHS Seroquel (Quetiapine Fumarate) 25 Mg Tablet 25 Mg PO TID@0900,1300,1700 Olanzapine 5 Mg Tablet 5 Mg PO PRN Q2HR PRN Nystatin 15 Gm Oint...g. 1 Rosey TP BID NICODERM CQ 21mg (Nicotine) 1 Each Patch.td24 1 Patch TD DAILY Analgesic Chandler (Methyl Salicylate/Menthol) 28 Gm Oint...g. 1 Rosey TP PRN QHS PRN Milk Of Magnesia (Magnesium Hydroxide) 400 Mg/5 Ml Oral.susp 2,400 Mg PO PRN QHS PRN Mag-Al Plus Xs Suspension (Mag Hydrox/Al Hydrox/Simeth) 30 Ml Oral.susp 15 Ml PO PRN AFTMEALHC PRN Tylenol (Acetaminophen) 325 Mg Tablet 650 Mg PO PRN Q6HRS PRN Depakote Sprinkle (Divalproex Sodium) 125 Mg Cap.sprink 875 Mg PO TID Duoneb 0.5-3(2.5) Mg/3 Ml (Albuterol/Ipratropium) 3 Ml Ampul.neb 3 Ml NEB PRN Q4HRS PRN Eucerin Creme (Mineral Oil/Petrolatum,White) 120 Gm Cream..g. 1 Rosey TP PRN TID PRN Tamsulosin Hcl 0.4 Mg Cap.er.24h 0.4 Mg PO HS Potassium Chloride 10 Meq Tablet.er 10 Meq PO DAILYWBKFT Novolog Flexpen (Insulin Aspart) 100 Unit/1 Ml Insuln.pen 15 Units SQ TIDBFRMEAL Analgesic Chandler (Methyl Salicylate/Menthol) 28 Gm Oint...g. 1 Rosey TP TID Mucinex (Guaifenesin) 600 Mg Tablet.er 600 Mg PO BID Metformin Hcl 1,000 Mg Tablet 1,000 Mg PO BIDWMEALS Namenda (Memantine Hcl) 10 Mg Tablet 10 Mg PO BID Loratadine 10 Mg Tablet 10 Mg PO DAILY Lisinopril 5 Mg Tablet 5 Mg PO DAILY Hydrocodone-Apap 5-325 (Hydrocodone Bit/Acetaminophen) 1 Each Tablet 1 Tab PO Q6HRS PRN Furosemide 20 Mg Tablet 20 Mg PO DAILY Finasteride 5 Mg Tablet 5 Mg PO DAILY EXELON 9.5mg/24hr (Rivastigmine) 1 Each Patch.td24 1 Patch TD DAILY Escitalopram Oxalate 5 Mg Tablet 5 Mg PO DAILY Clopidogrel (Clopidogrel Bisulfate) 75 Mg Tablet 75 Mg PO DAILY Carvedilol 3.125 Mg Tablet 3.125 Mg PO BIDWMEALS Atorvastatin Calcium 20 Mg Tablet 20 Mg PO QHS Anoro Ellipta 62.5-25 Mcg Inh (Umeclidinium Brm/Vilanterol Tr) 1 Each Disk.w.dev 1 Puff IH DAILY Acetaminophen 500 Mg Tablet 500 Mg PO BID Gabapentin 300 Mg Capsule 300 Mg PO QID Aspirin 81 Mg Tab.chew 81 Mg PO DAILY Lantus Solostar (Insulin Glargine,Hum.rec.anlog) 100 Unit/1 Ml Insuln.pen 65 Unit SQ QHS I have reviewed the current psychotropics carefully including drug interactions. Risk benefit ratio favors no change other than as noted in my dictated progress note. Diagnosis: Problems: (1) Bipolar affective, mixed, sev w/ psych (2) Dementia, vascular, with delusions (3) Alcoholic psychosis (4) Impulse control disorder (5) Anxiety disorder (6) Alcohol-induced persisting dementia SAMMY QUICK MD Jul 21, 2017 15:42
--- NOTE | 2017-07-21 23:50 | PN ---
DATE: 07/19/2017 This is a late entry for 07/19/2017 covers elements not covered in my initial note of 07/19/2017. SUBJECTIVE: I met with the patient evening of 07/19/2017. The patient did well the previous evening, did well on 07/19/2017 until about 3 p.m. and then he was more somatic wanting staff to help him even for things he can do himself then did better once redirected. Daughter visited. Blood sugar is stable. REVIEW OF SYSTEMS: Ambulation impaired with walker. No CV, , pulmonary, eye system symptoms on review. MENTAL STATUS EXAM: Oriented to himself and situation. Speech coherent, less pressured. Abstraction fair, computation impaired, language function intact, attention span short. Mood and affect less labile. LABORATORY DATA: Reviewed. 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 PLAN: Continue psychotropics mentioned in my initial note. MAN Francoise QUICK MD DR: REID/elvia JOB#: [id number] / [id number]
--- NOTE | 2017-07-22 21:18 | DS ---
DATE OF DISCHARGE: 07/21/2017 This late entry 07/21/2017 covers elements not covered in my initial note 07/21/2017. REASON FOR ADMISSION: Please refer to the admission history for details. Briefly, the patient is a 77-year-old male referred to us from [facility] by his primary care physician on account of worsening mood vacillations within the context of his alcohol-induced persisting dementia and diagnosis of bipolar disorder. He was making statements that people are beating him up, stealing from him, threatened to shoot the place up, was urinating on the floor. Behaviors were unmanageable, dangerous and his court appointed guardian ____ primary care physician, arranged this psychiatric hospitalization for stabilization. SIGNIFICANT FINDINGS AND CLINICAL COURSE: Following admission, the patient was seen daily individually by myself, followed medically per Dr. Cheney/Dr Cruz. The patient was extremely labile, erratic, urinating on the floor, threatening. Adjustments were made in his psychotropics. He seemed to respond to a combination of Depakote Sprinkles 875 mg 3 times a day with a therapeutic valproic acid level at 64, Celexa 5 mg a day, Exelon patch 9.5 mg a day, Namenda 10 mg twice a day, trazodone 100 mg at bedtime plus 100 mg p.r.n. for insomnia at bedtime, Zyprexa p.r.n., Seroquel 25 mg 0900, 1300, 1700. Gradually mood appeared to improve. He was much more compliant, appropriate, not threatening, sleeping and eating reasonably well. REVIEW OF SYSTEMS: Prior to discharge on 07/21/2017, ambulation impaired with walker. No CV, , pulmonary, eye, ENT system symptoms on review. Reliability poor. MENTAL STATUS EXAM: Oriented to himself and situation. Speech coherent, less pressured. Abstraction fair, computation impaired, language function intact, attention span short. Mood and affect was improved. CONDITION AT DISCHARGE: Improved. FINAL DIAGNOSES: Bipolar 1 disorder, mixed with psychotic features, in partial remission; major neurocognitive disorder, possibly due to alcohol with delusion, behavioral disturbance; anxiety disorder, unspecified; impulse control disorder, unspecified. Rest unchanged from admission. DISCHARGE MEDICATIONS: Please refer to the MRAD. DISCHARGE INSTRUCTIONS: Outpatient psychiatric and medical followup at the long term. Time for discharge day management greater than 30 minutes. SAMMY QUICK MD DR: REID/elvia JOB#: [id number] / [id number]
== END 2017-07-21 11:45 | disposition home or self-care (01) | DRG 885 ==
LOC: ER 18:28 → GEROPSY 20:51
PROVIDERS: ADMIT Psychiatry & Neurology Psychiatry; ATTEND Psychiatry & Neurology Psychiatry
DX: F31.64 Bipolar disorder, current episode mixed, severe, with psychotic features (principal); F01.51 Vascular dementia, unspecified severity, with behavioral disturbance; F10.27 Alcohol dependence with alcohol-induced persisting dementia; Z68.42 Body mass index [BMI] 45.0-49.9, adult; I50.9 Heart failure, unspecified; I11.0 Hypertensive heart disease with heart failure; E11.9 Type 2 diabetes mellitus without complications; E66.9 Obesity, unspecified; K59.09 Other constipation; E78.5 Hyperlipidemia, unspecified; K21.9 Gastro-esophageal reflux disease without esophagitis; J44.9 Chronic obstructive pulmonary disease, unspecified; F41.9 Anxiety disorder, unspecified; F42.9 Obsessive-compulsive disorder, unspecified; F63.9 Impulse disorder, unspecified; G47.00 Insomnia, unspecified; G47.30 Sleep apnea, unspecified; N40.0 Benign prostatic hyperplasia without lower urinary tract symptoms; Z86.73 Personal history of transient ischemic attack (TIA), and cerebral infarction without residual deficits; Z79.899 Other long term (current) drug therapy
CPT/HCPCS: 36415; 80053; 80061; 80164; 81001; 82306; 82607; 82947; 83036; 83540; 83550; 83735; 84436; 84443; 84480; 85025; 90732; 93005; 94640; 94799; J1815; J7613; J7620; 99285-25